=== PATIENT | male | born 1940 | race Caucasian/White ===

== ENCOUNTER → 2018-06-10 11:49 | Outpatient (CLI) | payer MEDICARE, SELFPAY ==
[2018-06-10 12:19] LABS: Add Manual Diff / Slide Review NO; Basophils Percent Auto 0.9 % (0-2); Eosinophils Percent Auto 3.6 % (2-4); Hematocrit 47.7 % (41-53); Hemoglobin 16.4 g/dL (13.5-17.5); Lymphocytes Percent Auto 23.1 % (25-40); Mean Corpuscular HGB Conc 34.4 % (30-36); Mean Corpuscular Hemoglobin 34.9 PG (26-34); Mean Corpuscular Volume 101.5 fL (80-100); Monocytes Percent Auto 10.9 % (3-14); Neutrophils Absolute Auto 3500 /uL (3000-5900); Neutrophils Percent Auto 61.5 % (50-75); Platelet Count 175 X10^3/uL (150-400); Red Blood Cell Count 4.71 X10^6/uL (4.5-5.9); Red Cell Distribution Width 13.1 % (11.6-14.8); White Blood Cell Count 5.7 X10^3/uL (4.5-11.0)
[2018-06-10 12:36] LABS: Hemoglobin A1C% w Est Avg Glu 4.8 % (4.0-6.0)
[2018-06-10 13:05] LABS: Alanine Aminotransferase 37 IU/L (21-72); Albumin 4.1 g/dL (3.5-5.0); Albumin Globulin Ratio 1.2 (1.0-2.8); Alkaline Phosphatase 61 U/L (38-126); Aspartate Aminotransferase 31 IU/L (17-59); BUN Creatinine Ratio 15.7 (6-22); Bilirubin Total 1.9 mg/dL (0.2-1.3); Blood Urea Nitrogen 11 mg/dL (9-20); Calcium 9.4 mg/dL (8.4-10.2); Carbon Dioxide 31 mmol/L (22-32); Chloride 96 mmol/L (98-107); Cholesterol 130 mg/dL (140-199); Estimated Glomerular Filt Rate > 60.0 mL/min (>60); Globulin 3.3 g/dL (1.7-4.1); Glucose 97 mg/dL (80-110); HDL Cholesterol 91 mg/dL (40-60); HEMOLYSIS < 15 (0-50); LDL Cholesterol Calculated 27 mg/dL (<100); Potassium 4.6 mmol/L (3.4-5.1); Sodium 136 mmol/L (137-145); Total Protein 7.4 g/dL (6.3-8.2); Triglycerides 59 mg/dL (35-150)
== END ==
PROVIDERS: PCP Family Medicine; Visit Provider Registered Nurse
DX: N42.9 Disorder of prostate, unspecified (principal); I10 Essential (primary) hypertension; E66.01 Morbid (severe) obesity due to excess calories; Z12.5 Encounter for screening for malignant neoplasm of prostate
CPT/HCPCS: 36415; 80053; 80061; 83036; 85025; G0103

== ENCOUNTER → 2018-06-28 12:46 | Outpatient (CLI) | payer MEDICARE, SELFPAY ==
--- NOTE | 2018-06-28 12:47 | DI.US.S_ITS ---
PROCEDURE: US SCROTUM INDICATIONS: Testicular pain TECHNIQUE: Real-time scanning was performed of the scrotum and testicles, with image documentation. Color and pulse Doppler interrogation was performed of both testicles. COMPARISON: None. FINDINGS: Right: Testicle is normal in size at 3.3 x 2.3 x 3.1 cm, and homogenous in echotexture. Epididymis is normal in overall size and morphology. Small hydrocele. No varicoceles. Overlying scrotal skin is normal in thickness. Left: Testicle is normal in size at 3.9 x 2.2 x 2.3 cm, and homogeneous in echotexture. Epididymis is normal in overall size and morphology. Small hydrocele. No varicoceles. Overlying scrotal skin is normal in thickness. Doppler: Color and pulse Doppler demonstrate normal and symmetric arterial flow in both testicles. IMPRESSION: 1. Normal testicles bilaterally. 2. Small bilateral hydroceles. Dictated by: Kuldeep VILLANUEVA Interpreted: Andrea Hatch MD on 06/28/2018 at 14:19 Approved by: Andrea Hatch M.D. on 06/28/2018 at 18:04
== END ==
PROVIDERS: Family Provider Family Medicine; PCP Family Medicine; Visit Provider Registered Nurse
DX: N50.819 Testicular pain, unspecified (principal); N43.3 Hydrocele, unspecified
CPT/HCPCS: 76870

== ENCOUNTER → 2018-09-30 13:38 | Outpatient (CLI) | payer MEDICARE, SELFPAY ==
--- NOTE | 2018-09-30 13:41 | DI.RAD.S_ITS ---
PROCEDURE: XR CHEST 2V INDICATIONS: cough TECHNIQUE: 2 views of the chest were acquired. COMPARISON: [facility], CHEST 1 VIEW, 06/25/2007, 11:48. [facility], CHEST 2 VIEW, 08/09/2010, 12:57. FINDINGS: Surgical changes and devices: None. Lungs and pleura: Bilateral interstitial prominence appears unchanged. There is pleural thickening or pleural calcification. No pleural effusions or pneumothorax. Mediastinum: Mediastinal contours are normal. Heart size is slightly prominent. Bones and chest wall: No suspicious bony abnormalities. Soft tissues appear unremarkable. IMPRESSION: 1. chronic pulmonary interstitial prominence. 2. Suspect pleural thickening. 3. Mild cardiomegaly. Dictated by: Carl Hopkins M.D. on 09/30/2018 at 14:03 Approved by: Carl Hopkins M.D. on 09/30/2018 at 14:18
== END ==
PROVIDERS: PCP Student in an Organized Health Care Education/Training Program; Visit Provider Physician Assistant
DX: R05 Cough (principal); I51.7 Cardiomegaly
CPT/HCPCS: 71046

== ENCOUNTER 2018-10-04 13:46 | Inpatient (IN) | payer MEDICARE, SELFPAY ==
[2018-10-04] VITALS (9 sets, daily range): BP systolic 100–136; BP diastolic 41–68; PULSE 54–72; RESP 16–32; TEMP 36.3–37.2; O2SAT 89–99; BMI 49.8
[2018-10-04] MEDS: ALBUTEROL/IPRATROPIUM 3 ML AMPUL INH (13:59)
--- NOTE | 2018-10-04 14:03 | DI.RAD.S_ITS ---
PROCEDURE: XR CHEST 1V INDICATIONS: cough TECHNIQUE: One view of the chest was acquired. COMPARISON: [facility], CR, XR CHEST 2V, 09/30/2018, 13:45. FINDINGS: Surgical changes and devices: None. Lungs and pleura: Patchy ill-defined bibasilar opacities are present. These appear increased since the prior study. Lung volumes are decreased. No definite focal consolidation. No pleural effusions or pneumothorax. Mediastinum: Mediastinal contours appear normal. Heart size is enlarged. Bones and chest wall: No suspicious bony lesions. Overlying soft tissues appear unremarkable. IMPRESSION: Cardiomegaly. Low lung volumes and bibasilar patchy ill-defined opacities possibly developing pulmonary edema versus atelectasis although cannot exclude superimposed infection therefore please correlate clinically. Dictated by: Chet Gresham M.D. on 10/04/2018 at 14:33 Approved by: Chet Gresham M.D. on 10/04/2018 at 14:35
--- NOTE | 2018-10-04 14:14 | ED.SOB ---
HPI - SOB/Dyspnea <DENISE Kerr - Last Filed: 10/04/18 21:57> General Chief Complaint: Shortness of Breath/Dyspnea Stated Complaint: SOB, cough Time Seen by Provider: 10/04/18 13:50 Source: patient Mode of arrival: ambulatory Limitations: no limitations History of Present Illness 77-year-old male with history of hypertension and is a former smoker here for complaint of cough over the past 6-8 weeks. He also reports having shortness of breath. Reports increased shortness of breath over the past few days. He denies any fevers. No chest pain. He states that he noticed increased shortness of breath while walking from his vehicle to his mailbox. He denies any productive cough. He has been seen for this in the walk-in clinic a few times over the past several weeks. He was prescribed doxycycline last visit he reports that this has not helped his symptoms. Positive p.o. intake. No nausea vomiting. No other concerns or complaints at this timeframe. MD Complaint: shortness of breath and cough Related Data Home Medications Medication Instructions Recorded Confirmed meloxicam 15 mg tablet 15 mg PO DAILY 06/10/18 10/04/18 methylsulfonylmethane 1 dose PO DAILY 06/10/18 10/04/18 omega-3 fatty acids 1 dose PO DAILY 06/10/18 10/04/18 Disabled Parking Permit 1 ea MISCELLANEOUS DIRECTED 10/04/18 10/04/18 amlodipine 10 mg PO DAILY 10/04/18 10/04/18 atenolol 50 mg PO DAILY 10/04/18 10/04/18 atorvastatin [Lipitor] 10 mg PO BEDTIME 10/04/18 10/04/18 doxycycline hyclate 100 mg PO [id number] 10/04/18 10/04/18 losartan [Cozaar] 50 mg PO DAILY 10/04/18 10/04/18 Previous Rx's Medication Instructions Recorded cephalexin 500 mg capsule 500 mg PO DAILY #40 cap 08/26/18 benzonatate 100 mg capsule 100 mg PO BEDTIME #20 cap 09/30/18 Allergies Allergy/AdvReac Type Severity Reaction Status Date / Time No Known Drug Allergies Allergy Verified 10/04/18 14:00 Review of Systems <DENISE Kerr - Last Filed: 10/04/18 21:57> Constitutional Denies chills, Denies fever(s), Denies lethargy and Denies weakness Eyes Denies change in vision, Denies eye discharge, Denies irritation and Denies loss of vision ENT Ears, Nose, Mouth, and Throat: Denies change in voice, Denies neck pain, Denies sore throat and Denies throat swelling Cardiovascular Denies chest pain, Denies irregular heart rhythm, Denies lightheadedness, Denies palpitations, Reports dyspnea and Denies orthopnea Respiratory Reports dyspnea and Denies wheezing Gastrointestinal Gastrointestinal: Denies abdominal pain, Denies change in bowel habits, Denies diarrhea, Denies nausea and Denies vomiting Genitourinary Denies hematuria, Denies flank pain, Denies urinary incontinence and Denies urinary urgency Musculoskeletal Denies neck pain Integumentary/Breasts Denies pruritus, Denies erythema, Denies rash and Denies wounds Neurologic Denies confusion, Denies loss of vision and Denies weakness Psychiatric Denies anxiety, Denies confusion, Denies depression, Denies homicidal ideation and Denies suicidal ideation Endocrine Denies palpitations Hematologic/Lymphatic Denies easy bruising Allergic/Immunologic Denies urticaria, Denies throat swelling and Denies wheezing PFSH <DENISE Kerr - Last Filed: 10/04/18 21:57> Medical History Alcohol abuse (Acute) Former smoker, stopped smoking in distant past (Acute) 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) Excessive drinking of alcohol (Chronic) Hayfever (Chronic) Morbid obesity (Chronic) Sleep apnea (Chronic) Chicken pox (Resolved ~1947) Measles (Resolved ~1947) Mumps (Resolved ~1948) Osteomyelitis (Resolved) Surgical History History of right knee joint replacement (Resolved) Family History Father CAD (coronary artery disease) [place] (myocardial infarction) Mother CAD (coronary artery disease) Severe hypertension Social History household members: children Smoking Status: Former smoker alcohol intake: current Family History Father CAD (coronary artery disease) [place] (myocardial infarction) Mother CAD (coronary artery disease) Severe hypertension Social History household members: children Smoking Status: Former smoker alcohol intake: current Exam <DENISE Kerr - Last Filed: 10/04/18 21:57> Initial Vital Signs Initial Vital Signs: Vital Signs Temperature 98.9 F 10/04/18 13:47 Pulse Rate 72 10/04/18 13:47 Respiratory Rate 32 H 10/04/18 13:47 Blood Pressure 119/48 L 10/04/18 13:47 Pulse Oximetry 89 L 10/04/18 13:47 Const General: cooperative and well developed Nutritional Appearance: well nourished Orientation: alert, awake, oriented x3 and not confused HENVA Mouth: oral mucosae normal and moist mucous membranes Eyes Conjunctivae: conjunctivae normal Sclera: sclerae normal Pupils: PERRL EOM: EOM intact bilaterally Cardio Rate: regular rate Rhythm: regular rhythm Heart Sounds: no click, no gallops, no murmurs and no rubs Pulses: normal peripheral pulses Skin General: no rashes or lesions noted, No jaundice and No petechiae Neuro General: alert, oriented x3, gait normal and no focal motor deficits Speech: speech normal <Bright Barclay DO - Last Filed: 10/07/18 07:06> Initial Vital Signs Initial Vital Signs: Vital Signs Temperature 98.9 F 10/04/18 13:47 Pulse Rate 72 10/04/18 13:47 Respiratory Rate 32 H 10/04/18 13:47 Blood Pressure 119/48 L 10/04/18 13:47 Pulse Oximetry 89 L 10/04/18 13:47 Course <DENISE Kerr - Last Filed: 10/04/18 21:57> Orders Ordered: ED Orders 10/07/18 05:25 CMP [Comprehensive Metabolic Panel] Routine Complete Blood Count AUTO DIFF DAILY Magnesium Routine Acetaminophen (Tylenol) 650 mg PO Q6H PRN PRN Reason: As Needed for Fever/Mild Pain Albuterol (Ventolin) 2.5 mg INH [id number] PRN PRN Reason: Shortness Of Breath Albuterol/Ipratropium (Duoneb) 3 ml INH RTBID [facility] Last Admin: 10/06/18 19:34 Dose: 3 ml Atenolol (Tenormin) 50 mg PO DAILY [facility] Last Admin: 10/06/18 08:17 Dose: 50 mg Admin: 10/05/18 09:41 Dose: 50 mg Atorvastatin Calcium (Lipitor) 10 mg PO BEDTIME [facility] Last Admin: 10/06/18 22:05 Dose: 10 mg Admin: 10/05/18 20:36 Dose: 10 mg Cephalexin HCl (Keflex) 500 mg PO DAILY [facility] Last Admin: 10/06/18 08:17 Dose: 500 mg Admin: 10/05/18 09:40 Dose: 500 mg Docusate Sodium (Colace) 100 mg PO BID PRN PRN Reason: Constipation Last Admin: 10/05/18 09:41 Dose: 100 mg Enoxaparin Sodium (Lovenox) 40 mg SUBCUT DAILY [facility] Last Admin: 10/06/18 08:17 Dose: 40 mg Admin: 10/05/18 09:41 Dose: 40 mg Folic Acid (Folic Acid) 1 mg PO DAILY [facility] Last Admin: 10/06/18 08:17 Dose: 1 mg Admin: 10/05/18 09:41 Dose: 1 mg Furosemide (Lasix) 60 mg PO DAILY [facility] Sodium Chloride (Normal Saline 0.9%) 250 mls @ 21 mls/hr IV Q24H PRN PRN Reason: Flush Last Admin: 10/05/18 01:31 Dose: 21 mls/hr Loratadine (Claritin) 10 mg PO BEDTIME [facility] Last Admin: 10/06/18 22:06 Dose: 10 mg Admin: 10/05/18 20:37 Dose: 10 mg Losartan Potassium (Cozaar) 50 mg PO DAILY [facility] Last Admin: 10/06/18 08:16 Dose: 50 mg Admin: 10/05/18 09:41 Dose: 50 mg Morphine Sulfate (Morphine) 4 mg IV Q4H PRN PRN Reason: Pain, Severe (7-10) Morphine Sulfate (Morphine) 2 mg IV Q4H PRN PRN Reason: Pain, Moderate (4-6) Multivitamins (Tab-A-Isidro) 1 tab PO DAILY [facility] Last Admin: 10/06/18 08:17 Dose: 1 tab Admin: 10/05/18 09:41 Dose: 1 tab Naloxone HCl (Narcan) 0.2 mg IV Q2MIN PRN PRN Reason: Opiate Reversal Ondansetron HCl (Zofran) 4 mg IV Q8H PRN PRN Reason: Nausea And Vomiting Pantoprazole Sodium (Protonix) 20 mg PO 0600 [facility] Last Admin: 10/07/18 05:33 Dose: 20 mg Admin: 10/06/18 08:11 Dose: 20 mg Admin: 10/05/18 05:49 Dose: 20 mg Pseudoephedrine HCl (Pseudoephedrine Hcl) 30 mg PO Q6HR PRN PRN Reason: Congestion Last Admin: 10/05/18 20:40 Dose: 30 mg Sodium Chloride (Normal Saline 0.9% Flush) 10 ml IV PRN PRN PRN Reason: Flush Last Admin: 10/05/18 01:31 Dose: 10 ml Sodium Chloride (Normal Saline 0.9% Flush) 10 ml IV BID [facility] Last Admin: 10/06/18 22:06 Dose: 10 ml Admin: 10/06/18 08:18 Dose: 10 ml Admin: 10/05/18 20:37 Dose: 10 ml Admin: 10/05/18 09:43 Dose: 10 ml Thiamine HCl (Vitamin B-1) 100 mg PO DAILY [facility] Stop: 10/08/18 09:01 Last Admin: 10/06/18 08:17 Dose: 100 mg Admin: 10/05/18 09:41 Dose: 100 mg Discontinued Medications Albuterol/Ipratropium (Duoneb) 3 ml INH NOW ONE Stop: 10/04/18 13:57 Last Admin: 10/04/18 13:59 Dose: 3 ml Furosemide (Lasix) 40 mg IV NOW ONE Stop: 10/04/18 17:02 Last Admin: 10/04/18 17:26 Dose: 40 mg Furosemide (Lasix) 20 mg IV BID [facility] Last Admin: 10/05/18 02:07 Dose: Not Given Furosemide (Lasix) 20 mg IV BID [facility] Last Admin: 10/06/18 22:05 Dose: 20 mg Admin: 10/06/18 08:18 Dose: 20 mg Admin: 10/05/18 20:36 Dose: 20 mg Admin: 10/05/18 09:43 Dose: 20 mg Admin: 10/05/18 01:31 Dose: 20 mg Meloxicam (Mobic) 15 mg PO DAILY [facility] Vital Signs - 8 hr 10/06/18 23:20 10/07/18 04:15 Temperature 97.5 F L 97.2 F L Pulse Rate 70 102 H Respiratory Rate 20 24 Blood Pressure 116/73 152/72 H Pulse Oximetry 92 96 <Bright Barclay, DO - Last Filed: 10/07/18 07:06> Orders Ordered: ED Orders 10/07/18 05:25 CMP [Comprehensive Metabolic Panel] Routine Complete Blood Count AUTO DIFF DAILY Magnesium Routine Acetaminophen (Tylenol) 650 mg PO Q6H PRN PRN Reason: As Needed for Fever/Mild Pain Albuterol (Ventolin) 2.5 mg INH [id number] PRN PRN Reason: Shortness Of Breath Albuterol/Ipratropium (Duoneb) 3 ml INH RTBID [facility] Last Admin: 10/06/18 19:34 Dose: 3 ml Atenolol (Tenormin) 50 mg PO DAILY [facility] Last Admin: 10/06/18 08:17 Dose: 50 mg Admin: 10/05/18 09:41 Dose: 50 mg Atorvastatin Calcium (Lipitor) 10 mg PO BEDTIME [facility] Last Admin: 10/06/18 22:05 Dose: 10 mg Admin: 10/05/18 20:36 Dose: 10 mg Cephalexin HCl (Keflex) 500 mg PO DAILY [facility] Last Admin: 10/06/18 08:17 Dose: 500 mg Admin: 10/05/18 09:40 Dose: 500 mg Docusate Sodium (Colace) 100 mg PO BID PRN PRN Reason: Constipation Last Admin: 10/05/18 09:41 Dose: 100 mg Enoxaparin Sodium (Lovenox) 40 mg SUBCUT DAILY [facility] Last Admin: 10/06/18 08:17 Dose: 40 mg Admin: 10/05/18 09:41 Dose: 40 mg Folic Acid (Folic Acid) 1 mg PO DAILY [facility] Last Admin: 10/06/18 08:17 Dose: 1 mg Admin: 10/05/18 09:41 Dose: 1 mg Furosemide (Lasix) 60 mg PO DAILY [facility] Sodium Chloride (Normal Saline 0.9%) 250 mls @ 21 mls/hr IV Q24H PRN PRN Reason: Flush Last Admin: 10/05/18 01:31 Dose: 21 mls/hr Loratadine (Claritin) 10 mg PO BEDTIME [facility] Last Admin: 10/06/18 22:06 Dose: 10 mg Admin: 10/05/18 20:37 Dose: 10 mg Losartan Potassium (Cozaar) 50 mg PO DAILY [facility] Last Admin: 10/06/18 08:16 Dose: 50 mg Admin: 10/05/18 09:41 Dose: 50 mg Morphine Sulfate (Morphine) 4 mg IV Q4H PRN PRN Reason: Pain, Severe (7-10) Morphine Sulfate (Morphine) 2 mg IV Q4H PRN PRN Reason: Pain, Moderate (4-6) Multivitamins (Tab-A-Isidro) 1 tab PO DAILY [facility] Last Admin: 10/06/18 08:17 Dose: 1 tab Admin: 10/05/18 09:41 Dose: 1 tab Naloxone HCl (Narcan) 0.2 mg IV Q2MIN PRN PRN Reason: Opiate Reversal Ondansetron HCl (Zofran) 4 mg IV Q8H PRN PRN Reason: Nausea And Vomiting Pantoprazole Sodium (Protonix) 20 mg PO 0600 [facility] Last Admin: 10/07/18 05:33 Dose: 20 mg Admin: 10/06/18 08:11 Dose: 20 mg Admin: 10/05/18 05:49 Dose: 20 mg Pseudoephedrine HCl (Pseudoephedrine Hcl) 30 mg PO Q6HR PRN PRN Reason: Congestion Last Admin: 10/05/18 20:40 Dose: 30 mg Sodium Chloride (Normal Saline 0.9% Flush) 10 ml IV PRN PRN PRN Reason: Flush Last Admin: 10/05/18 01:31 Dose: 10 ml Sodium Chloride (Normal Saline 0.9% Flush) 10 ml IV BID [facility] Last Admin: 10/06/18 22:06 Dose: 10 ml Admin: 10/06/18 08:18 Dose: 10 ml Admin: 10/05/18 20:37 Dose: 10 ml Admin: 10/05/18 09:43 Dose: 10 ml Thiamine HCl (Vitamin B-1) 100 mg PO DAILY [facility] Stop: 10/08/18 09:01 Last Admin: 10/06/18 08:17 Dose: 100 mg Admin: 10/05/18 09:41 Dose: 100 mg Discontinued Medications Albuterol/Ipratropium (Duoneb) 3 ml INH NOW ONE Stop: 10/04/18 13:57 Last Admin: 10/04/18 13:59 Dose: 3 ml Furosemide (Lasix) 40 mg IV NOW ONE Stop: 10/04/18 17:02 Last Admin: 10/04/18 17:26 Dose: 40 mg Furosemide (Lasix) 20 mg IV BID [facility] Last Admin: 10/05/18 02:07 Dose: Not Given Furosemide (Lasix) 20 mg IV BID [facility] Last Admin: 10/06/18 22:05 Dose: 20 mg Admin: 10/06/18 08:18 Dose: 20 mg Admin: 10/05/18 20:36 Dose: 20 mg Admin: 10/05/18 09:43 Dose: 20 mg Admin: 10/05/18 01:31 Dose: 20 mg Meloxicam (Mobic) 15 mg PO DAILY [facility] Vital Signs - 8 hr 10/06/18 23:20 10/07/18 04:15 Temperature 97.5 F L 97.2 F L Pulse Rate 70 102 H Respiratory Rate 20 24 Blood Pressure 116/73 152/72 H Pulse Oximetry 92 96 MDM - SOB/Dyspnea <DENISE Kerr - Last Filed: 10/04/18 21:57> Lab Data Result diagrams: 10/07/18 05:25 10/07/18 05:25 Lab Results 10/04/18 10/04/18 10/04/18 Range/Units 14:10 14:10 14:10 WBC 6.5 (4.5-11.0) X10^3/uL RBC 4.33 L (4.5-5.9) X10^6/uL Hgb 15.1 (13.5-17.5) g/dL Hct 41.9 (41-53) % MCV 96.8 (80-100) fL MCH 34.9 H (26-34) PG MCHC 36.0 (30-36) % RDW 13.2 (11.6-14.8) % Plt Count 180 (150-400) X10^3/uL Neut % (Auto) 70.6 (50-75) % Lymph % (Auto) 16.7 L (25-40) % Day % (Auto) 9.4 (3-14) % Eos % (Auto) 2.3 (2-4) % Baso % (Auto) 1.0 (0-2) % Neut # (Auto) 4600 (3207-6138) /uL Lymph # (Auto) 1100 (7595-8386) /uL Day # (Auto) 600 (0-900) /uL Eos # (Auto) 200 (0-450) /uL Baso # (Auto) 100 (0-100) /uL PT 12.3 (10.1-12.7) SECONDS INR 1.1 (0.9-1.3) Sodium 121 L (137-145) mmol/L Potassium 4.3 (3.4-5.1) mmol/L Chloride 84 L (98-107) mmol/L Carbon Dioxide 26 (22-32) mmol/L BUN 11 (9-20) mg/dL Creatinine 0.50 L (0.66-1.25) mg/dL Estimated GFR > 60.0 (>60) mL/min BUN/Creatinine Ratio 22.0 (6-22) Glucose 101 (80-110) mg/dL Calcium 9.1 (8.4-10.2) mg/dL Magnesium (1.6-2.3) mg/dL Total Bilirubin 2.2 H (0.2-1.3) mg/dL AST 35 (17-59) IU/L ALT 30 (21-72) IU/L Alkaline Phosphatase 66 (38-126) U/L Total Creatine Kinase 82 (55-170) U/L CK-MB (CK-2) TNP CK-MB (CK-2) Rel Index TNP Troponin I < 0.012 (0.01-0.034) ng/mL B-Natriuretic Peptide (<100) Total Protein 7.9 (6.3-8.2) g/dL Albumin 4.4 (3.5-5.0) g/dL Globulin 3.5 (1.7-4.1) g/dL Albumin/Globulin Ratio 1.3 (1.0-2.8) Triglycerides (35-150) mg/dL Cholesterol (140-199) mg/dL LDL Cholesterol, Calc (<100) mg/dL HDL Cholesterol (40-60) mg/dL Lipase 81 (23-300) U/L Procalcitonin (<0.5) ng/mL Chlamy pneumoniae PCR (Not Detect) Adenovirus (PCR) (Not Detect) B.parapertussis DNA PCR (Not Detect) Coronavirus OC43 (PCR) (Not Detect) Coronavirus HKU1 (PCR) (Not Detect) Coronavirus 229E (PCR) (Not Detect) Coronavirus NL63 (PCR) (Not Detect) Human Metapneumovir PCR (Not Detect) Influenza Type A (PCR) (Not Detect) Influenza Type B (PCR) (Not Detect) M. pneumoniae (PCR) (Not Detect) Parainfluenza 1 (PCR) (Not Detect) Parainfluenza 2 (PCR) (Not Detect) Parainfluenza 3 (PCR) (Not Detect) Parainfluenza 4 (PCR) (Not Detect) RSV (PCR) (Not Detect) Entero/Rhino (PCR) (Not Detect) 10/04/18 10/05/18 10/05/18 Range/Units 14:10 05:27 05:27 WBC 6.0 (4.5-11.0) X10^3/uL RBC 4.20 L (4.5-5.9) X10^6/uL Hgb 14.5 (13.5-17.5) g/dL Hct 41.4 (41-53) % MCV 98.5 (80-100) fL MCH 34.5 H (26-34) PG MCHC 35.0 (30-36) % RDW 13.3 (11.6-14.8) % Plt Count 164 (150-400) X10^3/uL Neut % (Auto) 67.5 (50-75) % Lymph % (Auto) 19.4 L (25-40) % Day % (Auto) 10.1 (3-14) % Eos % (Auto) 2.3 (2-4) % Baso % (Auto) 0.7 (0-2) % Neut # (Auto) 4000 (0102-2947) /uL Lymph # (Auto) 1200 (8197-2379) /uL Day # (Auto) 600 (0-900) /uL Eos # (Auto) 100 (0-450) /uL Baso # (Auto) 0 (0-100) /uL PT (10.1-12.7) SECONDS INR (0.9-1.3) Sodium 126 L (137-145) mmol/L Potassium 3.9 (3.4-5.1) mmol/L Chloride 87 L (98-107) mmol/L Carbon Dioxide 30 (22-32) mmol/L BUN 12 (9-20) mg/dL Creatinine 0.60 L (0.66-1.25) mg/dL Estimated GFR > 60.0 (>60) mL/min BUN/Creatinine Ratio 20.0 (6-22) Glucose 100 (80-110) mg/dL Calcium 9.0 (8.4-10.2) mg/dL Magnesium (1.6-2.3) mg/dL Total Bilirubin (0.2-1.3) mg/dL AST (17-59) IU/L ALT (21-72) IU/L Alkaline Phosphatase (38-126) U/L Total Creatine Kinase (55-170) U/L CK-MB (CK-2) CK-MB (CK-2) Rel Index Troponin I (0.01-0.034) ng/mL B-Natriuretic Peptide 155 H (<100) Total Protein (6.3-8.2) g/dL Albumin (3.5-5.0) g/dL Globulin (1.7-4.1) g/dL Albumin/Globulin Ratio (1.0-2.8) Triglycerides (35-150) mg/dL Cholesterol (140-199) mg/dL LDL Cholesterol, Calc (<100) mg/dL HDL Cholesterol (40-60) mg/dL Lipase (23-300) U/L Procalcitonin (<0.5) ng/mL Chlamy pneumoniae PCR (Not Detect) Adenovirus (PCR) (Not Detect) B.parapertussis DNA PCR (Not Detect) Coronavirus OC43 (PCR) (Not Detect) Coronavirus HKU1 (PCR) (Not Detect) Coronavirus 229E (PCR) (Not Detect) Coronavirus NL63 (PCR) (Not Detect) Human Metapneumovir PCR (Not Detect) Influenza Type A (PCR) (Not Detect) Influenza Type B (PCR) (Not Detect) M. pneumoniae (PCR) (Not Detect) Parainfluenza 1 (PCR) (Not Detect) Parainfluenza 2 (PCR) (Not Detect) Parainfluenza 3 (PCR) (Not Detect) Parainfluenza 4 (PCR) (Not Detect) RSV (PCR) (Not Detect) Entero/Rhino (PCR) (Not Detect) 10/05/18 10/05/18 10/05/18 Range/Units 05:27 05:27 05:27 WBC (4.5-11.0) X10^3/uL RBC (4.5-5.9) X10^6/uL Hgb (13.5-17.5) g/dL Hct (41-53) % MCV (80-100) fL MCH (26-34) PG MCHC (30-36) % RDW (11.6-14.8) % Plt Count (150-400) X10^3/uL Neut % (Auto) (50-75) % Lymph % (Auto) (25-40) % Day % (Auto) (3-14) % Eos % (Auto) (2-4) % Baso % (Auto) (0-2) % Neut # (Auto) (0390-4649) /uL Lymph # (Auto) (7946-3133) /uL Day # (Auto) (0-900) /uL Eos # (Auto) (0-450) /uL Baso # (Auto) (0-100) /uL PT (10.1-12.7) SECONDS INR (0.9-1.3) Sodium (137-145) mmol/L Potassium (3.4-5.1) mmol/L Chloride (98-107) mmol/L Carbon Dioxide (22-32) mmol/L BUN (9-20) mg/dL Creatinine (0.66-1.25) mg/dL Estimated GFR (>60) mL/min BUN/Creatinine Ratio (6-22) Glucose (80-110) mg/dL Calcium (8.4-10.2) mg/dL Magnesium 1.6 (1.6-2.3) mg/dL Total Bilirubin (0.2-1.3) mg/dL AST (17-59) IU/L ALT (21-72) IU/L Alkaline Phosphatase (38-126) U/L Total Creatine Kinase (55-170) U/L CK-MB (CK-2) CK-MB (CK-2) Rel Index Troponin I < 0.012 (0.01-0.034) ng/mL B-Natriuretic Peptide (<100) Total Protein (6.3-8.2) g/dL Albumin (3.5-5.0) g/dL Globulin (1.7-4.1) g/dL Albumin/Globulin Ratio (1.0-2.8) Triglycerides 45 (35-150) mg/dL Cholesterol 124 L (140-199) mg/dL LDL Cholesterol, Calc 30 (<100) mg/dL HDL Cholesterol 85 H (40-60) mg/dL Lipase (23-300) U/L Procalcitonin 2.60 H (<0.5) ng/mL Chlamy pneumoniae PCR (Not Detect) Adenovirus (PCR) (Not Detect) B.parapertussis DNA PCR (Not Detect) Coronavirus OC43 (PCR) (Not Detect) Coronavirus HKU1 (PCR) (Not Detect) Coronavirus 229E (PCR) (Not Detect) Coronavirus NL63 (PCR) (Not Detect) Human Metapneumovir PCR (Not Detect) Influenza Type A (PCR) (Not Detect) Influenza Type B (PCR) (Not Detect) M. pneumoniae (PCR) (Not Detect) Parainfluenza 1 (PCR) (Not Detect) Parainfluenza 2 (PCR) (Not Detect) Parainfluenza 3 (PCR) (Not Detect) Parainfluenza 4 (PCR) (Not Detect) RSV (PCR) (Not Detect) Entero/Rhino (PCR) (Not Detect) 10/05/18 10/06/18 10/06/18 Range/Units 06:48 05:07 05:07 WBC 6.8 (4.5-11.0) X10^3/uL RBC 4.22 L (4.5-5.9) X10^6/uL Hgb 14.6 (13.5-17.5) g/dL Hct 42.4 (41-53) % MCV 100.4 H (80-100) fL MCH 34.6 H (26-34) PG MCHC 34.5 (30-36) % RDW 13.5 (11.6-14.8) % Plt Count 154 (150-400) X10^3/uL Neut % (Auto) 71.6 (50-75) % Lymph % (Auto) 14.0 L (25-40) % Day % (Auto) 10.9 (3-14) % Eos % (Auto) 2.9 (2-4) % Baso % (Auto) 0.6 (0-2) % Neut # (Auto) 4800 (6674-3958) /uL Lymph # (Auto) 900 L (2223-5208) /uL Day # (Auto) 700 (0-900) /uL Eos # (Auto) 200 (0-450) /uL Baso # (Auto) 0 (0-100) /uL PT (10.1-12.7) SECONDS INR (0.9-1.3) Sodium 128 L (137-145) mmol/L Potassium 3.8 (3.4-5.1) mmol/L Chloride 88 L (98-107) mmol/L Carbon Dioxide 32 (22-32) mmol/L BUN 14 (9-20) mg/dL Creatinine 0.70 (0.66-1.25) mg/dL Estimated GFR > 60.0 (>60) mL/min BUN/Creatinine Ratio 20.0 (6-22) Glucose 108 (80-110) mg/dL Calcium 9.1 (8.4-10.2) mg/dL Magnesium (1.6-2.3) mg/dL Total Bilirubin (0.2-1.3) mg/dL AST (17-59) IU/L ALT (21-72) IU/L Alkaline Phosphatase (38-126) U/L Total Creatine Kinase (55-170) U/L CK-MB (CK-2) CK-MB (CK-2) Rel Index Troponin I (0.01-0.034) ng/mL B-Natriuretic Peptide (<100) Total Protein (6.3-8.2) g/dL Albumin (3.5-5.0) g/dL Globulin (1.7-4.1) g/dL Albumin/Globulin Ratio (1.0-2.8) Triglycerides (35-150) mg/dL Cholesterol (140-199) mg/dL LDL Cholesterol, Calc (<100) mg/dL HDL Cholesterol (40-60) mg/dL Lipase (23-300) U/L Procalcitonin (<0.5) ng/mL Chlamy pneumoniae PCR Not detected (Not Detect) Adenovirus (PCR) Not detected (Not Detect) B.parapertussis DNA PCR Not detected (Not Detect) Coronavirus OC43 (PCR) Not detected (Not Detect) Coronavirus HKU1 (PCR) Not detected (Not Detect) Coronavirus 229E (PCR) Not detected (Not Detect) Coronavirus NL63 (PCR) Not detected (Not Detect) Human Metapneumovir PCR Not detected (Not Detect) Influenza Type A (PCR) Not detected (Not Detect) Influenza Type B (PCR) Not detected (Not Detect) M. pneumoniae (PCR) Not detected (Not Detect) Parainfluenza 1 (PCR) Not detected (Not Detect) Parainfluenza 2 (PCR) Not detected (Not Detect) Parainfluenza 3 (PCR) Not detected (Not Detect) Parainfluenza 4 (PCR) Not detected (Not Detect) RSV (PCR) Not detected (Not Detect) Entero/Rhino (PCR) Not detected (Not Detect) 10/07/18 10/07/18 Range/Units 05:25 05:25 WBC 5.5 (4.5-11.0) X10^3/uL RBC 4.14 L (4.5-5.9) X10^6/uL Hgb 14.2 (13.5-17.5) g/dL Hct 40.8 L (41-53) % MCV 98.6 (80-100) fL MCH 34.4 H (26-34) PG MCHC 34.9 (30-36) % RDW 13.4 (11.6-14.8) % Plt Count 156 (150-400) X10^3/uL Neut % (Auto) 63.9 (50-75) % Lymph % (Auto) 19.8 L (25-40) % Day % (Auto) 11.5 (3-14) % Eos % (Auto) 3.9 (2-4) % Baso % (Auto) 0.9 (0-2) % Neut # (Auto) 3500 (3233-4566) /uL Lymph # (Auto) 1100 (6892-9242) /uL Day # (Auto) 600 (0-900) /uL Eos # (Auto) 200 (0-450) /uL Baso # (Auto) 0 (0-100) /uL PT (10.1-12.7) SECONDS INR (0.9-1.3) Sodium 129 L (137-145) mmol/L Potassium 3.6 (3.4-5.1) mmol/L Chloride 88 L (98-107) mmol/L Carbon Dioxide 32 (22-32) mmol/L BUN 18 (9-20) mg/dL Creatinine 0.70 (0.66-1.25) mg/dL Estimated GFR > 60.0 (>60) mL/min BUN/Creatinine Ratio 25.7 H (6-22) Glucose 104 (80-110) mg/dL Calcium 9.0 (8.4-10.2) mg/dL Magnesium 1.7 (1.6-2.3) mg/dL Total Bilirubin 1.4 H (0.2-1.3) mg/dL AST 32 (17-59) IU/L ALT 33 (21-72) IU/L Alkaline Phosphatase 61 (38-126) U/L Total Creatine Kinase (55-170) U/L CK-MB (CK-2) CK-MB (CK-2) Rel Index Troponin I (0.01-0.034) ng/mL B-Natriuretic Peptide (<100) Total Protein 7.2 (6.3-8.2) g/dL Albumin 4.0 (3.5-5.0) g/dL Globulin 3.2 (1.7-4.1) g/dL Albumin/Globulin Ratio 1.3 (1.0-2.8) Triglycerides (35-150) mg/dL Cholesterol (140-199) mg/dL LDL Cholesterol, Calc (<100) mg/dL HDL Cholesterol (40-60) mg/dL Lipase (23-300) U/L Procalcitonin (<0.5) ng/mL Chlamy pneumoniae PCR (Not Detect) Adenovirus (PCR) (Not Detect) B.parapertussis DNA PCR (Not Detect) Coronavirus OC43 (PCR) (Not Detect) Coronavirus HKU1 (PCR) (Not Detect) Coronavirus 229E (PCR) (Not Detect) Coronavirus NL63 (PCR) (Not Detect) Human Metapneumovir PCR (Not Detect) Influenza Type A (PCR) (Not Detect) Influenza Type B (PCR) (Not Detect) M. pneumoniae (PCR) (Not Detect) Parainfluenza 1 (PCR) (Not Detect) Parainfluenza 2 (PCR) (Not Detect) Parainfluenza 3 (PCR) (Not Detect) Parainfluenza 4 (PCR) (Not Detect) RSV (PCR) (Not Detect) Entero/Rhino (PCR) (Not Detect) Urine Dip Bedside Urine Glucose Negative Bedside Urine Bilirubin - Negative Bedside Urine Ketone - Negative Urine Specific [place] 1.015 Bedside Urine Occult Blood - Negative Bedside Urine pH 6.0 Bedside Urine Protein - Negative Bedside Urine Urobilinogen 1+ 2mg Bedside Urine Nitrite - Negative Bedside Urine Leukocytes - Negative Esterase ECG Data Interpretation: EKG shows sinus rhythm with no ST elevation or depression. No ectopy. Ventricular rate of 67 QRS duration of 110. QTC of 443. MDM Narrative Medical decision making narrative: CBC was obtained and shows normal white count and is otherwise unremarkable. Chem panel shows sodium level of 121 and chloride of 84. CT of the chest and chest x-ray shows findings consistent with CHF. EKG shows sinus rhythm with no ST elevation or depression cardiac enzymes were obtained and were negative. Do not appreciate signs of infection at this time. Signs and symptoms presents as CHF with hyponatremia. Patient is admitted to inpatient services to correct sodium levels and diurese. <Bright Barclay DO - Last Filed: 10/07/18 07:06> Lab Data Lab Results 10/04/18 10/04/18 10/04/18 Range/Units 14:10 14:10 14:10 WBC 6.5 (4.5-11.0) X10^3/uL RBC 4.33 L (4.5-5.9) X10^6/uL Hgb 15.1 (13.5-17.5) g/dL Hct 41.9 (41-53) % MCV 96.8 (80-100) fL MCH 34.9 H (26-34) PG MCHC 36.0 (30-36) % RDW 13.2 (11.6-14.8) % Plt Count 180 (150-400) X10^3/uL Neut % (Auto) 70.6 (50-75) % Lymph % (Auto) 16.7 L (25-40) % Day % (Auto) 9.4 (3-14) % Eos % (Auto) 2.3 (2-4) % Baso % (Auto) 1.0 (0-2) % Neut # (Auto) 4600 (7223-1658) /uL Lymph # (Auto) 1100 (9886-9457) /uL Day # (Auto) 600 (0-900) /uL Eos # (Auto) 200 (0-450) /uL Baso # (Auto) 100 (0-100) /uL PT 12.3 (10.1-12.7) SECONDS INR 1.1 (0.9-1.3) Sodium 121 L (137-145) mmol/L Potassium 4.3 (3.4-5.1) mmol/L Chloride 84 L (98-107) mmol/L Carbon Dioxide 26 (22-32) mmol/L BUN 11 (9-20) mg/dL Creatinine 0.50 L (0.66-1.25) mg/dL Estimated GFR > 60.0 (>60) mL/min BUN/Creatinine Ratio 22.0 (6-22) Glucose 101 (80-110) mg/dL Calcium 9.1 (8.4-10.2) mg/dL Magnesium (1.6-2.3) mg/dL Total Bilirubin 2.2 H (0.2-1.3) mg/dL AST 35 (17-59) IU/L ALT 30 (21-72) IU/L Alkaline Phosphatase 66 (38-126) U/L Total Creatine Kinase 82 (55-170) U/L CK-MB (CK-2) TNP CK-MB (CK-2) Rel Index TNP Troponin I < 0.012 (0.01-0.034) ng/mL B-Natriuretic Peptide (<100) Total Protein 7.9 (6.3-8.2) g/dL Albumin 4.4 (3.5-5.0) g/dL Globulin 3.5 (1.7-4.1) g/dL Albumin/Globulin Ratio 1.3 (1.0-2.8) Triglycerides (35-150) mg/dL Cholesterol (140-199) mg/dL LDL Cholesterol, Calc (<100) mg/dL HDL Cholesterol (40-60) mg/dL Lipase 81 (23-300) U/L Procalcitonin (<0.5) ng/mL Chlamy pneumoniae PCR (Not Detect) Adenovirus (PCR) (Not Detect) B.parapertussis DNA PCR (Not Detect) Coronavirus OC43 (PCR) (Not Detect) Coronavirus HKU1 (PCR) (Not Detect) Coronavirus 229E (PCR) (Not Detect) Coronavirus NL63 (PCR) (Not Detect) Human Metapneumovir PCR (Not Detect) Influenza Type A (PCR) (Not Detect) Influenza Type B (PCR) (Not Detect) M. pneumoniae (PCR) (Not Detect) Parainfluenza 1 (PCR) (Not Detect) Parainfluenza 2 (PCR) (Not Detect) Parainfluenza 3 (PCR) (Not Detect) Parainfluenza 4 (PCR) (Not Detect) RSV (PCR) (Not Detect) Entero/Rhino (PCR) (Not Detect) 10/04/18 10/05/18 10/05/18 Range/Units 14:10 05:27 05:27 WBC 6.0 (4.5-11.0) X10^3/uL RBC 4.20 L (4.5-5.9) X10^6/uL Hgb 14.5 (13.5-17.5) g/dL Hct 41.4 (41-53) % MCV 98.5 (80-100) fL MCH 34.5 H (26-34) PG MCHC 35.0 (30-36) % RDW 13.3 (11.6-14.8) % Plt Count 164 (150-400) X10^3/uL Neut % (Auto) 67.5 (50-75) % Lymph % (Auto) 19.4 L (25-40) % Day % (Auto) 10.1 (3-14) % Eos % (Auto) 2.3 (2-4) % Baso % (Auto) 0.7 (0-2) % Neut # (Auto) 4000 (7133-4695) /uL Lymph # (Auto) 1200 (3837-7201) /uL Day # (Auto) 600 (0-900) /uL Eos # (Auto) 100 (0-450) /uL Baso # (Auto) 0 (0-100) /uL PT (10.1-12.7) SECONDS INR (0.9-1.3) Sodium 126 L (137-145) mmol/L Potassium 3.9 (3.4-5.1) mmol/L Chloride 87 L (98-107) mmol/L Carbon Dioxide 30 (22-32) mmol/L BUN 12 (9-20) mg/dL Creatinine 0.60 L (0.66-1.25) mg/dL Estimated GFR > 60.0 (>60) mL/min BUN/Creatinine Ratio 20.0 (6-22) Glucose 100 (80-110) mg/dL Calcium 9.0 (8.4-10.2) mg/dL Magnesium (1.6-2.3) mg/dL Total Bilirubin (0.2-1.3) mg/dL AST (17-59) IU/L ALT (21-72) IU/L Alkaline Phosphatase (38-126) U/L Total Creatine Kinase (55-170) U/L CK-MB (CK-2) CK-MB (CK-2) Rel Index Troponin I (0.01-0.034) ng/mL B-Natriuretic Peptide 155 H (<100) Total Protein (6.3-8.2) g/dL Albumin (3.5-5.0) g/dL Globulin (1.7-4.1) g/dL Albumin/Globulin Ratio (1.0-2.8) Triglycerides (35-150) mg/dL Cholesterol (140-199) mg/dL LDL Cholesterol, Calc (<100) mg/dL HDL Cholesterol (40-60) mg/dL Lipase (23-300) U/L Procalcitonin (<0.5) ng/mL Chlamy pneumoniae PCR (Not Detect) Adenovirus (PCR) (Not Detect) B.parapertussis DNA PCR (Not Detect) Coronavirus OC43 (PCR) (Not Detect) Coronavirus HKU1 (PCR) (Not Detect) Coronavirus 229E (PCR) (Not Detect) Coronavirus NL63 (PCR) (Not Detect) Human Metapneumovir PCR (Not Detect) Influenza Type A (PCR) (Not Detect) Influenza Type B (PCR) (Not Detect) M. pneumoniae (PCR) (Not Detect) Parainfluenza 1 (PCR) (Not Detect) Parainfluenza 2 (PCR) (Not Detect) Parainfluenza 3 (PCR) (Not Detect) Parainfluenza 4 (PCR) (Not Detect) RSV (PCR) (Not Detect) Entero/Rhino (PCR) (Not Detect) 10/05/18 10/05/18 10/05/18 Range/Units 05:27 05:27 05:27 WBC (4.5-11.0) X10^3/uL RBC (4.5-5.9) X10^6/uL Hgb (13.5-17.5) g/dL Hct (41-53) % MCV (80-100) fL MCH (26-34) PG MCHC (30-36) % RDW (11.6-14.8) % Plt Count (150-400) X10^3/uL Neut % (Auto) (50-75) % Lymph % (Auto) (25-40) % Day % (Auto) (3-14) % Eos % (Auto) (2-4) % Baso % (Auto) (0-2) % Neut # (Auto) (8858-4352) /uL Lymph # (Auto) (3584-6411) /uL Day # (Auto) (0-900) /uL Eos # (Auto) (0-450) /uL Baso # (Auto) (0-100) /uL PT (10.1-12.7) SECONDS INR (0.9-1.3) Sodium (137-145) mmol/L Potassium (3.4-5.1) mmol/L Chloride (98-107) mmol/L Carbon Dioxide (22-32) mmol/L BUN (9-20) mg/dL Creatinine (0.66-1.25) mg/dL Estimated GFR (>60) mL/min BUN/Creatinine Ratio (6-22) Glucose (80-110) mg/dL Calcium (8.4-10.2) mg/dL Magnesium 1.6 (1.6-2.3) mg/dL Total Bilirubin (0.2-1.3) mg/dL AST (17-59) IU/L ALT (21-72) IU/L Alkaline Phosphatase (38-126) U/L Total Creatine Kinase (55-170) U/L CK-MB (CK-2) CK-MB (CK-2) Rel Index Troponin I < 0.012 (0.01-0.034) ng/mL B-Natriuretic Peptide (<100) Total Protein (6.3-8.2) g/dL Albumin (3.5-5.0) g/dL Globulin (1.7-4.1) g/dL Albumin/Globulin Ratio (1.0-2.8) Triglycerides 45 (35-150) mg/dL Cholesterol 124 L (140-199) mg/dL LDL Cholesterol, Calc 30 (<100) mg/dL HDL Cholesterol 85 H (40-60) mg/dL Lipase (23-300) U/L Procalcitonin 2.60 H (<0.5) ng/mL Chlamy pneumoniae PCR (Not Detect) Adenovirus (PCR) (Not Detect) B.parapertussis DNA PCR (Not Detect) Coronavirus OC43 (PCR) (Not Detect) Coronavirus HKU1 (PCR) (Not Detect) Coronavirus 229E (PCR) (Not Detect) Coronavirus NL63 (PCR) (Not Detect) Human Metapneumovir PCR (Not Detect) Influenza Type A (PCR) (Not Detect) Influenza Type B (PCR) (Not Detect) M. pneumoniae (PCR) (Not Detect) Parainfluenza 1 (PCR) (Not Detect) Parainfluenza 2 (PCR) (Not Detect) Parainfluenza 3 (PCR) (Not Detect) Parainfluenza 4 (PCR) (Not Detect) RSV (PCR) (Not Detect) Entero/Rhino (PCR) (Not Detect) 10/05/18 10/06/18 10/06/18 Range/Units 06:48 05:07 05:07 WBC 6.8 (4.5-11.0) X10^3/uL RBC 4.22 L (4.5-5.9) X10^6/uL Hgb 14.6 (13.5-17.5) g/dL Hct 42.4 (41-53) % MCV 100.4 H (80-100) fL MCH 34.6 H (26-34) PG MCHC 34.5 (30-36) % RDW 13.5 (11.6-14.8) % Plt Count 154 (150-400) X10^3/uL Neut % (Auto) 71.6 (50-75) % Lymph % (Auto) 14.0 L (25-40) % Day % (Auto) 10.9 (3-14) % Eos % (Auto) 2.9 (2-4) % Baso % (Auto) 0.6 (0-2) % Neut # (Auto) 4800 (0373-7531) /uL Lymph # (Auto) 900 L (5079-9612) /uL Day # (Auto) 700 (0-900) /uL Eos # (Auto) 200 (0-450) /uL Baso # (Auto) 0 (0-100) /uL PT (10.1-12.7) SECONDS INR (0.9-1.3) Sodium 128 L (137-145) mmol/L Potassium 3.8 (3.4-5.1) mmol/L Chloride 88 L (98-107) mmol/L Carbon Dioxide 32 (22-32) mmol/L BUN 14 (9-20) mg/dL Creatinine 0.70 (0.66-1.25) mg/dL Estimated GFR > 60.0 (>60) mL/min BUN/Creatinine Ratio 20.0 (6-22) Glucose 108 (80-110) mg/dL Calcium 9.1 (8.4-10.2) mg/dL Magnesium (1.6-2.3) mg/dL Total Bilirubin (0.2-1.3) mg/dL AST (17-59) IU/L ALT (21-72) IU/L Alkaline Phosphatase (38-126) U/L Total Creatine Kinase (55-170) U/L CK-MB (CK-2) CK-MB (CK-2) Rel Index Troponin I (0.01-0.034) ng/mL B-Natriuretic Peptide (<100) Total Protein (6.3-8.2) g/dL Albumin (3.5-5.0) g/dL Globulin (1.7-4.1) g/dL Albumin/Globulin Ratio (1.0-2.8) Triglycerides (35-150) mg/dL Cholesterol (140-199) mg/dL LDL Cholesterol, Calc (<100) mg/dL HDL Cholesterol (40-60) mg/dL Lipase (23-300) U/L Procalcitonin (<0.5) ng/mL Chlamy pneumoniae PCR Not detected (Not Detect) Adenovirus (PCR) Not detected (Not Detect) B.parapertussis DNA PCR Not detected (Not Detect) Coronavirus OC43 (PCR) Not detected (Not Detect) Coronavirus HKU1 (PCR) Not detected (Not Detect) Coronavirus 229E (PCR) Not detected (Not Detect) Coronavirus NL63 (PCR) Not detected (Not Detect) Human Metapneumovir PCR Not detected (Not Detect) Influenza Type A (PCR) Not detected (Not Detect) Influenza Type B (PCR) Not detected (Not Detect) M. pneumoniae (PCR) Not detected (Not Detect) Parainfluenza 1 (PCR) Not detected (Not Detect) Parainfluenza 2 (PCR) Not detected (Not Detect) Parainfluenza 3 (PCR) Not detected (Not Detect) Parainfluenza 4 (PCR) Not detected (Not Detect) RSV (PCR) Not detected (Not Detect) Entero/Rhino (PCR) Not detected (Not Detect) 10/07/18 10/07/18 Range/Units 05:25 05:25 WBC 5.5 (4.5-11.0) X10^3/uL RBC 4.14 L (4.5-5.9) X10^6/uL Hgb 14.2 (13.5-17.5) g/dL Hct 40.8 L (41-53) % MCV 98.6 (80-100) fL MCH 34.4 H (26-34) PG MCHC 34.9 (30-36) % RDW 13.4 (11.6-14.8) % Plt Count 156 (150-400) X10^3/uL Neut % (Auto) 63.9 (50-75) % Lymph % (Auto) 19.8 L (25-40) % Day % (Auto) 11.5 (3-14) % Eos % (Auto) 3.9 (2-4) % Baso % (Auto) 0.9 (0-2) % Neut # (Auto) 3500 (7043-3868) /uL Lymph # (Auto) 1100 (1449-2353) /uL Day # (Auto) 600 (0-900) /uL Eos # (Auto) 200 (0-450) /uL Baso # (Auto) 0 (0-100) /uL PT (10.1-12.7) SECONDS INR (0.9-1.3) Sodium 129 L (137-145) mmol/L Potassium 3.6 (3.4-5.1) mmol/L Chloride 88 L (98-107) mmol/L Carbon Dioxide 32 (22-32) mmol/L BUN 18 (9-20) mg/dL Creatinine 0.70 (0.66-1.25) mg/dL Estimated GFR > 60.0 (>60) mL/min BUN/Creatinine Ratio 25.7 H (6-22) Glucose 104 (80-110) mg/dL Calcium 9.0 (8.4-10.2) mg/dL Magnesium 1.7 (1.6-2.3) mg/dL Total Bilirubin 1.4 H (0.2-1.3) mg/dL AST 32 (17-59) IU/L ALT 33 (21-72) IU/L Alkaline Phosphatase 61 (38-126) U/L Total Creatine Kinase (55-170) U/L CK-MB (CK-2) CK-MB (CK-2) Rel Index Troponin I (0.01-0.034) ng/mL B-Natriuretic Peptide (<100) Total Protein 7.2 (6.3-8.2) g/dL Albumin 4.0 (3.5-5.0) g/dL Globulin 3.2 (1.7-4.1) g/dL Albumin/Globulin Ratio 1.3 (1.0-2.8) Triglycerides (35-150) mg/dL Cholesterol (140-199) mg/dL LDL Cholesterol, Calc (<100) mg/dL HDL Cholesterol (40-60) mg/dL Lipase (23-300) U/L Procalcitonin (<0.5) ng/mL Chlamy pneumoniae PCR (Not Detect) Adenovirus (PCR) (Not Detect) B.parapertussis DNA PCR (Not Detect) Coronavirus OC43 (PCR) (Not Detect) Coronavirus HKU1 (PCR) (Not Detect) Coronavirus 229E (PCR) (Not Detect) Coronavirus NL63 (PCR) (Not Detect) Human Metapneumovir PCR (Not Detect) Influenza Type A (PCR) (Not Detect) Influenza Type B (PCR) (Not Detect) M. pneumoniae (PCR) (Not Detect) Parainfluenza 1 (PCR) (Not Detect) Parainfluenza 2 (PCR) (Not Detect) Parainfluenza 3 (PCR) (Not Detect) Parainfluenza 4 (PCR) (Not Detect) RSV (PCR) (Not Detect) Entero/Rhino (PCR) (Not Detect) Urine Dip Bedside Urine Glucose Negative Bedside Urine Bilirubin - Negative Bedside Urine Ketone - Negative Urine Specific [place] 1.015 Bedside Urine Occult Blood - Negative Bedside Urine pH 6.0 Bedside Urine Protein - Negative Bedside Urine Urobilinogen 1+ 2mg Bedside Urine Nitrite - Negative Bedside Urine Leukocytes - Negative Esterase Discharge Plan Departure Patient Disposition: Admitted As Inpatient Clinical Impression: Hyponatremia Discharge Date/Time: 10/04/18 18:07 Interventions: ED Discharge Assessment Last Done: 10/04/18 17:57 Admit Date/Time: 10/04/18 17:26 Admit Provider: Denita Blunt <Bright Barclay DO - Last Filed: 10/07/18 07:06> Cosign ED Attending David Attestation: I was available for consultation during this patient's emergency department encounter
[2018-10-04 14:26] LABS: Add Manual Diff / Slide Review NO; Basophils Absolute Auto 100 /uL (0-100); Eosinophils Absolute Auto 200 /uL (0-450); Eosinophils Percent Auto 2.3 % (2-4); Hematocrit 41.9 % (41-53); Hemoglobin 15.1 g/dL (13.5-17.5); Lymphocytes Absolute Auto 1100 /uL (1100-4500); Lymphocytes Percent Auto 16.7 % (25-40); Mean Corpuscular Hemoglobin 34.9 PG (26-34); Mean Corpuscular Volume 96.8 fL (80-100); Monocytes Absolute Auto 600 /uL (0-900); Monocytes Percent Auto 9.4 % (3-14); Neutrophils Absolute Auto 4600 /uL (1500-7000); Neutrophils Percent Auto 70.6 % (50-75); Platelet Count 180 X10^3/uL (150-400); Red Blood Cell Count 4.33 X10^6/uL (4.5-5.9); Red Cell Distribution Width 13.2 % (11.6-14.8); White Blood Cell Count 6.5 X10^3/uL (4.5-11.0)
[2018-10-04 14:34] LABS: INR 1.1 (0.9-1.3); Prothrombin Time 12.3 SECONDS (10.1-12.7)
[2018-10-04 14:43] LABS: Alanine Aminotransferase 30 IU/L (21-72); Albumin 4.4 g/dL (3.5-5.0); Albumin Globulin Ratio 1.3 (1.0-2.8); Alkaline Phosphatase 66 U/L (38-126); Aspartate Aminotransferase 35 IU/L (17-59); Bilirubin Total 2.2 mg/dL (0.2-1.3); Blood Urea Nitrogen 11 mg/dL (9-20); Calcium 9.1 mg/dL (8.4-10.2); Carbon Dioxide 26 mmol/L (22-32); Chloride 84 mmol/L (98-107); Creatine Kinase 82 U/L (55-170); Estimated Glomerular Filt Rate > 60.0 mL/min (>60); Globulin 3.5 g/dL (1.7-4.1); Glucose 101 mg/dL (80-110); HEMOLYSIS 37 (0-50); Lipase 81 U/L (23-300); Potassium 4.3 mmol/L (3.4-5.1); Sodium 121 mmol/L (137-145); Total Protein 7.9 g/dL (6.3-8.2)
[2018-10-04 14:55] LABS: Troponin I < 0.012 ng/mL (0.01-0.034)
[2018-10-04 15:21] LABS: B Type Natriuretic Peptide 155 (<100)
--- NOTE | 2018-10-04 17:01 | DI.CT.S_ITS ---
PROCEDURE: CT CHEST WO CON INDICATIONS: Cough over the last 6-8 weeks low-sodium TECHNIQUE: Noncontrast 5 mm thick sections acquired from the pulmonary apices to the posterior costophrenic angles. 7 mm thick coronal and sagittal MIP reformats were then acquired. For radiation dose reduction, the following was used: automated exposure control, adjustment of mA and/or kV according to patient size. COMPARISON: None. FINDINGS: Image quality: Excellent. Lungs and pleura: Small bilateral pleural effusion is seen. Hazy groundglass opacity are noted scattered throughout bilateral lung bryan suggestive of mild pulmonary edema. No focal infiltrate is seen. Mild dependent atelectasis in posterior aspect of bilateral lower lobes. There is no pneumothorax Central and peripheral airways are patent and normal in caliber. Mediastinum: Heart size is enlarged. No pericardial effusion. No mediastinal adenopathy by size criteria. Subcentimeter lymph nodes are seen scattered in mediastinum and measures up to 8 mm in size. Coronary artery calcifications are seen. Atherosclerotic calcifications also noted throughout aortic arch and descending thoracic aorta. Thoracic aorta and central pulmonary arteries are normal in size. Esophagus is normal in caliber. No hiatal hernia. Bones and chest wall: No suspicious bony lesions. No vertebral body compression fractures. 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 No axillary or supraclavicular adenopathy by size criteria. Left thyroid lobe is asymmetrically enlarged, no discrete thyroid nodule is seen. Abdomen: Visualized upper abdominal solid organs and bowel loops appear normal in the absence of contrast. Multiple stones are seen in dependent portion of gallbladder lumen. No gross biliary ductal dilatation is seen. IMPRESSION: 1. Small right greater than left bilateral pleural effusion with adjacent compressive atelectasis in posterior aspect of bilateral lower lobes. Mild pulmonary edema. No focal infiltrate or pneumothorax. Airway is patent. 2. No mediastinal or hilar lymphadenopathy. Cardiomegaly and coronary artery calcifications. 3. Asymmetrically enlarged left thyroid lobe which may represent nodular goiter. 4. Cholelithiasis, no biliary ductal dilatation. Dictated by: Andrea Hatch M.D. on 10/04/2018 at 17:44 Approved by: Andrea Hatch M.D. on 10/04/2018 at 17:50
[2018-10-04] MEDS: FUROSEMIDE 40 MG/4 ML VIAL IV (17:26)
--- NOTE | 2018-10-04 17:28 | ED_ITS ---
HPI - SOB/Dyspnea <DENISE Kerr - Last Filed: 10/04/18 21:57> General Chief Complaint: Shortness of Breath/Dyspnea Stated Complaint: SOB, cough Time Seen by Provider: 10/04/18 13:50 Source: patient Mode of arrival: ambulatory Limitations: no limitations History of Present Illness 77-year-old male with history of hypertension and is a former smoker here for complaint of cough over the past 6-8 weeks. He also reports having shortness of breath. Reports increased shortness of breath over the past few days. He denies any fevers. No chest pain. He states that he noticed increased shortness of breath while walking from his vehicle to his mailbox. He denies any productive cough. He has been seen for this in the walk-in clinic a few times over the past several weeks. He was prescribed doxycycline last visit he reports that this has not helped his symptoms. Positive p.o. intake. No nausea vomiting. No other concerns or complaints at this timeframe. MD Complaint: shortness of breath and cough Related Data Home Medications Medication Instructions Recorded Confirmed meloxicam 15 mg tablet 15 mg PO DAILY 06/10/18 10/04/18 methylsulfonylmethane 1 dose PO DAILY 06/10/18 10/04/18 omega-3 fatty acids 1 dose PO DAILY 06/10/18 10/04/18 Disabled Parking Permit 1 ea MISCELLANEOUS DIRECTED 10/04/18 10/04/18 amlodipine 10 mg PO DAILY 10/04/18 10/04/18 atenolol 50 mg PO DAILY 10/04/18 10/04/18 atorvastatin [Lipitor] 10 mg PO BEDTIME 10/04/18 10/04/18 doxycycline hyclate 100 mg PO [id number] 10/04/18 10/04/18 losartan [Cozaar] 50 mg PO DAILY 10/04/18 10/04/18 Previous Rx's Medication Instructions Recorded cephalexin 500 mg capsule 500 mg PO DAILY #40 cap 08/26/18 benzonatate 100 mg capsule 100 mg PO BEDTIME #20 cap 09/30/18 Allergies Allergy/AdvReac Type Severity Reaction Status Date / Time No Known Drug Allergies Allergy Verified 10/04/18 14:00 Review of Systems <DENISE Kerr - Last Filed: 10/04/18 21:57> Constitutional Denies chills, Denies fever(s), Denies lethargy and Denies weakness Eyes Denies change in vision, Denies eye discharge, Denies irritation and Denies loss of vision ENT Ears, Nose, Mouth, and Throat: Denies change in voice, Denies neck pain, Denies sore throat and Denies throat swelling Cardiovascular Denies chest pain, Denies irregular heart rhythm, Denies lightheadedness, Denies palpitations, Reports dyspnea and Denies orthopnea Respiratory Reports dyspnea and Denies wheezing Gastrointestinal Gastrointestinal: Denies abdominal pain, Denies change in bowel habits, Denies diarrhea, Denies nausea and Denies vomiting Genitourinary Denies hematuria, Denies flank pain, Denies urinary incontinence and Denies urinary urgency Musculoskeletal Denies neck pain Integumentary/Breasts Denies pruritus, Denies erythema, Denies rash and Denies wounds Neurologic Denies confusion, Denies loss of vision and Denies weakness Psychiatric Denies anxiety, Denies confusion, Denies depression, Denies homicidal ideation and Denies suicidal ideation Endocrine Denies palpitations Hematologic/Lymphatic Denies easy bruising Allergic/Immunologic Denies urticaria, Denies throat swelling and Denies wheezing PFSH <DENISE Kerr - Last Filed: 10/04/18 21:57> Medical History Alcohol abuse (Acute) Former smoker, stopped smoking in distant past (Acute) 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) Excessive drinking of alcohol (Chronic) Hayfever (Chronic) Morbid obesity (Chronic) Sleep apnea (Chronic) Chicken pox (Resolved ~1947) Measles (Resolved ~1947) Mumps (Resolved ~1948) Osteomyelitis (Resolved) Surgical History History of right knee joint replacement (Resolved) Family History Father CAD (coronary artery disease) AR (myocardial infarction) Mother CAD (coronary artery disease) Severe hypertension Social History household members: children Smoking Status: Former smoker alcohol intake: current Family History Father CAD (coronary artery disease) AR (myocardial infarction) Mother CAD (coronary artery disease) Severe hypertension Social History household members: children Smoking Status: Former smoker alcohol intake: current Exam <DENISE Kerr - Last Filed: 10/04/18 21:57> Initial Vital Signs Initial Vital Signs: Vital Signs Temperature 98.9 F 10/04/18 13:47 Pulse Rate 72 10/04/18 13:47 Respiratory Rate 32 H 10/04/18 13:47 Blood Pressure 119/48 L 10/04/18 13:47 Pulse Oximetry 89 L 10/04/18 13:47 Const General: cooperative and well developed Nutritional Appearance: well nourished Orientation: alert, awake, oriented x3 and not confused HENMS Mouth: oral mucosae normal and moist mucous membranes Eyes Conjunctivae: conjunctivae normal Sclera: sclerae normal Pupils: PERRL EOM: EOM intact bilaterally Cardio Rate: regular rate Rhythm: regular rhythm Heart Sounds: no click, no gallops, no murmurs and no rubs Pulses: normal peripheral pulses Skin General: no rashes or lesions noted, No jaundice and No petechiae Neuro General: alert, oriented x3, gait normal and no focal motor deficits Speech: speech normal <Bright Barclay DO - Last Filed: 10/07/18 07:06> Initial Vital Signs Initial Vital Signs: Vital Signs Temperature 98.9 F 10/04/18 13:47 Pulse Rate 72 10/04/18 13:47 Respiratory Rate 32 H 10/04/18 13:47 Blood Pressure 119/48 L 10/04/18 13:47 Pulse Oximetry 89 L 10/04/18 13:47 Course <DENISE Kerr - Last Filed: 10/04/18 21:57> Orders Ordered: ED Orders 10/07/18 05:25 CMP [Comprehensive Metabolic Panel] Routine Complete Blood Count AUTO DIFF DAILY Magnesium Routine Acetaminophen (Tylenol) 650 mg PO Q6H PRN PRN Reason: As Needed for Fever/Mild Pain Albuterol (Ventolin) 2.5 mg INH [id number] PRN PRN Reason: Shortness Of Breath Albuterol/Ipratropium (Duoneb) 3 ml INH RTBID [facility] Last Admin: 10/06/18 19:34 Dose: 3 ml Atenolol (Tenormin) 50 mg PO DAILY [facility] Last Admin: 10/06/18 08:17 Dose: 50 mg Admin: 10/05/18 09:41 Dose: 50 mg Atorvastatin Calcium (Lipitor) 10 mg PO BEDTIME [facility] Last Admin: 10/06/18 22:05 Dose: 10 mg Admin: 10/05/18 20:36 Dose: 10 mg Cephalexin HCl (Keflex) 500 mg PO DAILY [facility] Last Admin: 10/06/18 08:17 Dose: 500 mg Admin: 10/05/18 09:40 Dose: 500 mg Docusate Sodium (Colace) 100 mg PO BID PRN PRN Reason: Constipation Last Admin: 10/05/18 09:41 Dose: 100 mg Enoxaparin Sodium (Lovenox) 40 mg SUBCUT DAILY [facility] Last Admin: 10/06/18 08:17 Dose: 40 mg Admin: 10/05/18 09:41 Dose: 40 mg Folic Acid (Folic Acid) 1 mg PO DAILY [facility] Last Admin: 10/06/18 08:17 Dose: 1 mg Admin: 10/05/18 09:41 Dose: 1 mg Furosemide (Lasix) 60 mg PO DAILY [facility] Sodium Chloride (Normal Saline 0.9%) 250 mls @ 21 mls/hr IV Q24H PRN PRN Reason: Flush Last Admin: 10/05/18 01:31 Dose: 21 mls/hr Loratadine (Claritin) 10 mg PO BEDTIME [facility] Last Admin: 10/06/18 22:06 Dose: 10 mg Admin: 10/05/18 20:37 Dose: 10 mg Losartan Potassium (Cozaar) 50 mg PO DAILY [facility] Last Admin: 10/06/18 08:16 Dose: 50 mg Admin: 10/05/18 09:41 Dose: 50 mg Morphine Sulfate (Morphine) 4 mg IV Q4H PRN PRN Reason: Pain, Severe (7-10) Morphine Sulfate (Morphine) 2 mg IV Q4H PRN PRN Reason: Pain, Moderate (4-6) Multivitamins (Tab-A-Isidro) 1 tab PO DAILY [facility] Last Admin: 10/06/18 08:17 Dose: 1 tab Admin: 10/05/18 09:41 Dose: 1 tab Naloxone HCl (Narcan) 0.2 mg IV Q2MIN PRN PRN Reason: Opiate Reversal Ondansetron HCl (Zofran) 4 mg IV Q8H PRN PRN Reason: Nausea And Vomiting Pantoprazole Sodium (Protonix) 20 mg PO 0600 [facility] Last Admin: 10/07/18 05:33 Dose: 20 mg Admin: 10/06/18 08:11 Dose: 20 mg Admin: 10/05/18 05:49 Dose: 20 mg Pseudoephedrine HCl (Pseudoephedrine Hcl) 30 mg PO Q6HR PRN PRN Reason: Congestion Last Admin: 10/05/18 20:40 Dose: 30 mg Sodium Chloride (Normal Saline 0.9% Flush) 10 ml IV PRN PRN PRN Reason: Flush Last Admin: 10/05/18 01:31 Dose: 10 ml Sodium Chloride (Normal Saline 0.9% Flush) 10 ml IV BID [facility] Last Admin: 10/06/18 22:06 Dose: 10 ml Admin: 10/06/18 08:18 Dose: 10 ml Admin: 10/05/18 20:37 Dose: 10 ml Admin: 10/05/18 09:43 Dose: 10 ml Thiamine HCl (Vitamin B-1) 100 mg PO DAILY [facility] Stop: 10/08/18 09:01 Last Admin: 10/06/18 08:17 Dose: 100 mg Admin: 10/05/18 09:41 Dose: 100 mg Discontinued Medications Albuterol/Ipratropium (Duoneb) 3 ml INH NOW ONE Stop: 10/04/18 13:57 Last Admin: 10/04/18 13:59 Dose: 3 ml Furosemide (Lasix) 40 mg IV NOW ONE Stop: 10/04/18 17:02 Last Admin: 10/04/18 17:26 Dose: 40 mg Furosemide (Lasix) 20 mg IV BID [facility] Last Admin: 10/05/18 02:07 Dose: Not Given Furosemide (Lasix) 20 mg IV BID [facility] Last Admin: 10/06/18 22:05 Dose: 20 mg Admin: 10/06/18 08:18 Dose: 20 mg Admin: 10/05/18 20:36 Dose: 20 mg Admin: 10/05/18 09:43 Dose: 20 mg Admin: 10/05/18 01:31 Dose: 20 mg Meloxicam (Mobic) 15 mg PO DAILY [facility] Vital Signs - 8 hr 10/06/18 23:20 10/07/18 04:15 Temperature 97.5 F L 97.2 F L Pulse Rate 70 102 H Respiratory Rate 20 24 Blood Pressure 116/73 152/72 H Pulse Oximetry 92 96 <Bright Barclay, DO - Last Filed: 10/07/18 07:06> Orders Ordered: ED Orders 10/07/18 05:25 CMP [Comprehensive Metabolic Panel] Routine Complete Blood Count AUTO DIFF DAILY Magnesium Routine Acetaminophen (Tylenol) 650 mg PO Q6H PRN PRN Reason: As Needed for Fever/Mild Pain Albuterol (Ventolin) 2.5 mg INH [id number] PRN PRN Reason: Shortness Of Breath Albuterol/Ipratropium (Duoneb) 3 ml INH RTBID [facility] Last Admin: 10/06/18 19:34 Dose: 3 ml Atenolol (Tenormin) 50 mg PO DAILY [facility] Last Admin: 10/06/18 08:17 Dose: 50 mg Admin: 10/05/18 09:41 Dose: 50 mg Atorvastatin Calcium (Lipitor) 10 mg PO BEDTIME [facility] Last Admin: 10/06/18 22:05 Dose: 10 mg Admin: 10/05/18 20:36 Dose: 10 mg Cephalexin HCl (Keflex) 500 mg PO DAILY [facility] Last Admin: 10/06/18 08:17 Dose: 500 mg Admin: 10/05/18 09:40 Dose: 500 mg Docusate Sodium (Colace) 100 mg PO BID PRN PRN Reason: Constipation Last Admin: 10/05/18 09:41 Dose: 100 mg Enoxaparin Sodium (Lovenox) 40 mg SUBCUT DAILY [facility] Last Admin: 10/06/18 08:17 Dose: 40 mg Admin: 10/05/18 09:41 Dose: 40 mg Folic Acid (Folic Acid) 1 mg PO DAILY [facility] Last Admin: 10/06/18 08:17 Dose: 1 mg Admin: 10/05/18 09:41 Dose: 1 mg Furosemide (Lasix) 60 mg PO DAILY [facility] Sodium Chloride (Normal Saline 0.9%) 250 mls @ 21 mls/hr IV Q24H PRN PRN Reason: Flush Last Admin: 10/05/18 01:31 Dose: 21 mls/hr Loratadine (Claritin) 10 mg PO BEDTIME [facility] Last Admin: 10/06/18 22:06 Dose: 10 mg Admin: 10/05/18 20:37 Dose: 10 mg Losartan Potassium (Cozaar) 50 mg PO DAILY [facility] Last Admin: 10/06/18 08:16 Dose: 50 mg Admin: 10/05/18 09:41 Dose: 50 mg Morphine Sulfate (Morphine) 4 mg IV Q4H PRN PRN Reason: Pain, Severe (7-10) Morphine Sulfate (Morphine) 2 mg IV Q4H PRN PRN Reason: Pain, Moderate (4-6) Multivitamins (Tab-A-Isidro) 1 tab PO DAILY [facility] Last Admin: 10/06/18 08:17 Dose: 1 tab Admin: 10/05/18 09:41 Dose: 1 tab Naloxone HCl (Narcan) 0.2 mg IV Q2MIN PRN PRN Reason: Opiate Reversal Ondansetron HCl (Zofran) 4 mg IV Q8H PRN PRN Reason: Nausea And Vomiting Pantoprazole Sodium (Protonix) 20 mg PO 0600 [facility] Last Admin: 10/07/18 05:33 Dose: 20 mg Admin: 10/06/18 08:11 Dose: 20 mg Admin: 10/05/18 05:49 Dose: 20 mg Pseudoephedrine HCl (Pseudoephedrine Hcl) 30 mg PO Q6HR PRN PRN Reason: Congestion Last Admin: 10/05/18 20:40 Dose: 30 mg Sodium Chloride (Normal Saline 0.9% Flush) 10 ml IV PRN PRN PRN Reason: Flush Last Admin: 10/05/18 01:31 Dose: 10 ml Sodium Chloride (Normal Saline 0.9% Flush) 10 ml IV BID [facility] Last Admin: 10/06/18 22:06 Dose: 10 ml Admin: 10/06/18 08:18 Dose: 10 ml Admin: 10/05/18 20:37 Dose: 10 ml Admin: 10/05/18 09:43 Dose: 10 ml Thiamine HCl (Vitamin B-1) 100 mg PO DAILY [facility] Stop: 10/08/18 09:01 Last Admin: 10/06/18 08:17 Dose: 100 mg Admin: 10/05/18 09:41 Dose: 100 mg Discontinued Medications Albuterol/Ipratropium (Duoneb) 3 ml INH NOW ONE Stop: 10/04/18 13:57 Last Admin: 10/04/18 13:59 Dose: 3 ml Furosemide (Lasix) 40 mg IV NOW ONE Stop: 10/04/18 17:02 Last Admin: 10/04/18 17:26 Dose: 40 mg Furosemide (Lasix) 20 mg IV BID [facility] Last Admin: 10/05/18 02:07 Dose: Not Given Furosemide (Lasix) 20 mg IV BID [facility] Last Admin: 10/06/18 22:05 Dose: 20 mg Admin: 10/06/18 08:18 Dose: 20 mg Admin: 10/05/18 20:36 Dose: 20 mg Admin: 10/05/18 09:43 Dose: 20 mg Admin: 10/05/18 01:31 Dose: 20 mg Meloxicam (Mobic) 15 mg PO DAILY [facility] Vital Signs - 8 hr 10/06/18 23:20 10/07/18 04:15 Temperature 97.5 F L 97.2 F L Pulse Rate 70 102 H Respiratory Rate 20 24 Blood Pressure 116/73 152/72 H Pulse Oximetry 92 96 MDM - SOB/Dyspnea <DENISE Kerr - Last Filed: 10/04/18 21:57> Lab Data Result diagrams: 10/07/18 05:25 10/07/18 05:25 Lab Results 10/04/18 10/04/18 10/04/18 Range/Units 14:10 14:10 14:10 WBC 6.5 (4.5-11.0) X10^3/uL RBC 4.33 L (4.5-5.9) X10^6/uL Hgb 15.1 (13.5-17.5) g/dL Hct 41.9 (41-53) % MCV 96.8 (80-100) fL MCH 34.9 H (26-34) PG MCHC 36.0 (30-36) % RDW 13.2 (11.6-14.8) % Plt Count 180 (150-400) X10^3/uL Neut % (Auto) 70.6 (50-75) % Lymph % (Auto) 16.7 L (25-40) % [place] % (Auto) 9.4 (3-14) % Eos % (Auto) 2.3 (2-4) % Baso % (Auto) 1.0 (0-2) % Neut # (Auto) 4600 (4420-9644) /uL Lymph # (Auto) 1100 (8917-7015) /uL [place] # (Auto) 600 (0-900) /uL Eos # (Auto) 200 (0-450) /uL Baso # (Auto) 100 (0-100) /uL PT 12.3 (10.1-12.7) SECONDS INR 1.1 (0.9-1.3) Sodium 121 L (137-145) mmol/L Potassium 4.3 (3.4-5.1) mmol/L Chloride 84 L (98-107) mmol/L Carbon Dioxide 26 (22-32) mmol/L BUN 11 (9-20) mg/dL Creatinine 0.50 L (0.66-1.25) mg/dL Estimated GFR > 60.0 (>60) mL/min BUN/Creatinine Ratio 22.0 (6-22) Glucose 101 (80-110) mg/dL Calcium 9.1 (8.4-10.2) mg/dL Magnesium (1.6-2.3) mg/dL Total Bilirubin 2.2 H (0.2-1.3) mg/dL AST 35 (17-59) IU/L ALT 30 (21-72) IU/L Alkaline Phosphatase 66 (38-126) U/L Total Creatine Kinase 82 (55-170) U/L CK-MB (CK-2) TNP CK-MB (CK-2) Rel Index TNP Troponin I < 0.012 (0.01-0.034) ng/mL B-Natriuretic Peptide (<100) Total Protein 7.9 (6.3-8.2) g/dL Albumin 4.4 (3.5-5.0) g/dL Globulin 3.5 (1.7-4.1) g/dL Albumin/Globulin Ratio 1.3 (1.0-2.8) Triglycerides (35-150) mg/dL Cholesterol (140-199) mg/dL LDL Cholesterol, Calc (<100) mg/dL HDL Cholesterol (40-60) mg/dL Lipase 81 (23-300) U/L Procalcitonin (<0.5) ng/mL Chlamy pneumoniae PCR (Not Detect) Adenovirus (PCR) (Not Detect) B.parapertussis DNA PCR (Not Detect) Coronavirus OC43 (PCR) (Not Detect) Coronavirus HKU1 (PCR) (Not Detect) Coronavirus 229E (PCR) (Not Detect) Coronavirus NL63 (PCR) (Not Detect) Human Metapneumovir PCR (Not Detect) Influenza Type A (PCR) (Not Detect) Influenza Type B (PCR) (Not Detect) M. pneumoniae (PCR) (Not Detect) Parainfluenza 1 (PCR) (Not Detect) Parainfluenza 2 (PCR) (Not Detect) Parainfluenza 3 (PCR) (Not Detect) Parainfluenza 4 (PCR) (Not Detect) RSV (PCR) (Not Detect) Entero/Rhino (PCR) (Not Detect) 10/04/18 10/05/18 10/05/18 Range/Units 14:10 05:27 05:27 WBC 6.0 (4.5-11.0) X10^3/uL RBC 4.20 L (4.5-5.9) X10^6/uL Hgb 14.5 (13.5-17.5) g/dL Hct 41.4 (41-53) % MCV 98.5 (80-100) fL MCH 34.5 H (26-34) PG MCHC 35.0 (30-36) % RDW 13.3 (11.6-14.8) % Plt Count 164 (150-400) X10^3/uL Neut % (Auto) 67.5 (50-75) % Lymph % (Auto) 19.4 L (25-40) % [place] % (Auto) 10.1 (3-14) % Eos % (Auto) 2.3 (2-4) % Baso % (Auto) 0.7 (0-2) % Neut # (Auto) 4000 (0784-1476) /uL Lymph # (Auto) 1200 (9522-5481) /uL [place] # (Auto) 600 (0-900) /uL Eos # (Auto) 100 (0-450) /uL Baso # (Auto) 0 (0-100) /uL PT (10.1-12.7) SECONDS INR (0.9-1.3) Sodium 126 L (137-145) mmol/L Potassium 3.9 (3.4-5.1) mmol/L Chloride 87 L (98-107) mmol/L Carbon Dioxide 30 (22-32) mmol/L BUN 12 (9-20) mg/dL Creatinine 0.60 L (0.66-1.25) mg/dL Estimated GFR > 60.0 (>60) mL/min BUN/Creatinine Ratio 20.0 (6-22) Glucose 100 (80-110) mg/dL Calcium 9.0 (8.4-10.2) mg/dL Magnesium (1.6-2.3) mg/dL Total Bilirubin (0.2-1.3) mg/dL AST (17-59) IU/L ALT (21-72) IU/L Alkaline Phosphatase (38-126) U/L Total Creatine Kinase (55-170) U/L CK-MB (CK-2) CK-MB (CK-2) Rel Index Troponin I (0.01-0.034) ng/mL B-Natriuretic Peptide 155 H (<100) Total Protein (6.3-8.2) g/dL Albumin (3.5-5.0) g/dL Globulin (1.7-4.1) g/dL Albumin/Globulin Ratio (1.0-2.8) Triglycerides (35-150) mg/dL Cholesterol (140-199) mg/dL LDL Cholesterol, Calc (<100) mg/dL HDL Cholesterol (40-60) mg/dL Lipase (23-300) U/L Procalcitonin (<0.5) ng/mL Chlamy pneumoniae PCR (Not Detect) Adenovirus (PCR) (Not Detect) B.parapertussis DNA PCR (Not Detect) Coronavirus OC43 (PCR) (Not Detect) Coronavirus HKU1 (PCR) (Not Detect) Coronavirus 229E (PCR) (Not Detect) Coronavirus NL63 (PCR) (Not Detect) Human Metapneumovir PCR (Not Detect) Influenza Type A (PCR) (Not Detect) Influenza Type B (PCR) (Not Detect) M. pneumoniae (PCR) (Not Detect) Parainfluenza 1 (PCR) (Not Detect) Parainfluenza 2 (PCR) (Not Detect) Parainfluenza 3 (PCR) (Not Detect) Parainfluenza 4 (PCR) (Not Detect) RSV (PCR) (Not Detect) Entero/Rhino (PCR) (Not Detect) 10/05/18 10/05/18 10/05/18 Range/Units 05:27 05:27 05:27 WBC (4.5-11.0) X10^3/uL RBC (4.5-5.9) X10^6/uL Hgb (13.5-17.5) g/dL Hct (41-53) % MCV (80-100) fL MCH (26-34) PG MCHC (30-36) % RDW (11.6-14.8) % Plt Count (150-400) X10^3/uL Neut % (Auto) (50-75) % Lymph % (Auto) (25-40) % [place] % (Auto) (3-14) % Eos % (Auto) (2-4) % Baso % (Auto) (0-2) % Neut # (Auto) (7104-6378) /uL Lymph # (Auto) (6672-2780) /uL [place] # (Auto) (0-900) /uL Eos # (Auto) (0-450) /uL Baso # (Auto) (0-100) /uL PT (10.1-12.7) SECONDS INR (0.9-1.3) Sodium (137-145) mmol/L Potassium (3.4-5.1) mmol/L Chloride (98-107) mmol/L Carbon Dioxide (22-32) mmol/L BUN (9-20) mg/dL Creatinine (0.66-1.25) mg/dL Estimated GFR (>60) mL/min BUN/Creatinine Ratio (6-22) Glucose (80-110) mg/dL Calcium (8.4-10.2) mg/dL Magnesium 1.6 (1.6-2.3) mg/dL Total Bilirubin (0.2-1.3) mg/dL AST (17-59) IU/L ALT (21-72) IU/L Alkaline Phosphatase (38-126) U/L Total Creatine Kinase (55-170) U/L CK-MB (CK-2) CK-MB (CK-2) Rel Index Troponin I < 0.012 (0.01-0.034) ng/mL B-Natriuretic Peptide (<100) Total Protein (6.3-8.2) g/dL Albumin (3.5-5.0) g/dL Globulin (1.7-4.1) g/dL Albumin/Globulin Ratio (1.0-2.8) Triglycerides 45 (35-150) mg/dL Cholesterol 124 L (140-199) mg/dL LDL Cholesterol, Calc 30 (<100) mg/dL HDL Cholesterol 85 H (40-60) mg/dL Lipase (23-300) U/L Procalcitonin 2.60 H (<0.5) ng/mL Chlamy pneumoniae PCR (Not Detect) Adenovirus (PCR) (Not Detect) B.parapertussis DNA PCR (Not Detect) Coronavirus OC43 (PCR) (Not Detect) Coronavirus HKU1 (PCR) (Not Detect) Coronavirus 229E (PCR) (Not Detect) Coronavirus NL63 (PCR) (Not Detect) Human Metapneumovir PCR (Not Detect) Influenza Type A (PCR) (Not Detect) Influenza Type B (PCR) (Not Detect) M. pneumoniae (PCR) (Not Detect) Parainfluenza 1 (PCR) (Not Detect) Parainfluenza 2 (PCR) (Not Detect) Parainfluenza 3 (PCR) (Not Detect) Parainfluenza 4 (PCR) (Not Detect) RSV (PCR) (Not Detect) Entero/Rhino (PCR) (Not Detect) 10/05/18 10/06/18 10/06/18 Range/Units 06:48 05:07 05:07 WBC 6.8 (4.5-11.0) X10^3/uL RBC 4.22 L (4.5-5.9) X10^6/uL Hgb 14.6 (13.5-17.5) g/dL Hct 42.4 (41-53) % MCV 100.4 H (80-100) fL MCH 34.6 H (26-34) PG MCHC 34.5 (30-36) % RDW 13.5 (11.6-14.8) % Plt Count 154 (150-400) X10^3/uL Neut % (Auto) 71.6 (50-75) % Lymph % (Auto) 14.0 L (25-40) % [place] % (Auto) 10.9 (3-14) % Eos % (Auto) 2.9 (2-4) % Baso % (Auto) 0.6 (0-2) % Neut # (Auto) 4800 (7968-6243) /uL Lymph # (Auto) 900 L (4255-6211) /uL [place] # (Auto) 700 (0-900) /uL Eos # (Auto) 200 (0-450) /uL Baso # (Auto) 0 (0-100) /uL PT (10.1-12.7) SECONDS INR (0.9-1.3) Sodium 128 L (137-145) mmol/L Potassium 3.8 (3.4-5.1) mmol/L Chloride 88 L (98-107) mmol/L Carbon Dioxide 32 (22-32) mmol/L BUN 14 (9-20) mg/dL Creatinine 0.70 (0.66-1.25) mg/dL Estimated GFR > 60.0 (>60) mL/min BUN/Creatinine Ratio 20.0 (6-22) Glucose 108 (80-110) mg/dL Calcium 9.1 (8.4-10.2) mg/dL Magnesium (1.6-2.3) mg/dL Total Bilirubin (0.2-1.3) mg/dL AST (17-59) IU/L ALT (21-72) IU/L Alkaline Phosphatase (38-126) U/L Total Creatine Kinase (55-170) U/L CK-MB (CK-2) CK-MB (CK-2) Rel Index Troponin I (0.01-0.034) ng/mL B-Natriuretic Peptide (<100) Total Protein (6.3-8.2) g/dL Albumin (3.5-5.0) g/dL Globulin (1.7-4.1) g/dL Albumin/Globulin Ratio (1.0-2.8) Triglycerides (35-150) mg/dL Cholesterol (140-199) mg/dL LDL Cholesterol, Calc (<100) mg/dL HDL Cholesterol (40-60) mg/dL Lipase (23-300) U/L Procalcitonin (<0.5) ng/mL Chlamy pneumoniae PCR Not detected (Not Detect) Adenovirus (PCR) Not detected (Not Detect) B.parapertussis DNA PCR Not detected (Not Detect) Coronavirus OC43 (PCR) Not detected (Not Detect) Coronavirus HKU1 (PCR) Not detected (Not Detect) Coronavirus 229E (PCR) Not detected (Not Detect) Coronavirus NL63 (PCR) Not detected (Not Detect) Human Metapneumovir PCR Not detected (Not Detect) Influenza Type A (PCR) Not detected (Not Detect) Influenza Type B (PCR) Not detected (Not Detect) M. pneumoniae (PCR) Not detected (Not Detect) Parainfluenza 1 (PCR) Not detected (Not Detect) Parainfluenza 2 (PCR) Not detected (Not Detect) Parainfluenza 3 (PCR) Not detected (Not Detect) Parainfluenza 4 (PCR) Not detected (Not Detect) RSV (PCR) Not detected (Not Detect) Entero/Rhino (PCR) Not detected (Not Detect) 10/07/18 10/07/18 Range/Units 05:25 05:25 WBC 5.5 (4.5-11.0) X10^3/uL RBC 4.14 L (4.5-5.9) X10^6/uL Hgb 14.2 (13.5-17.5) g/dL Hct 40.8 L (41-53) % MCV 98.6 (80-100) fL MCH 34.4 H (26-34) PG MCHC 34.9 (30-36) % RDW 13.4 (11.6-14.8) % Plt Count 156 (150-400) X10^3/uL Neut % (Auto) 63.9 (50-75) % Lymph % (Auto) 19.8 L (25-40) % [place] % (Auto) 11.5 (3-14) % Eos % (Auto) 3.9 (2-4) % Baso % (Auto) 0.9 (0-2) % Neut # (Auto) 3500 (6641-0538) /uL Lymph # (Auto) 1100 (1841-4286) /uL [place] # (Auto) 600 (0-900) /uL Eos # (Auto) 200 (0-450) /uL Baso # (Auto) 0 (0-100) /uL PT (10.1-12.7) SECONDS INR (0.9-1.3) Sodium 129 L (137-145) mmol/L Potassium 3.6 (3.4-5.1) mmol/L Chloride 88 L (98-107) mmol/L Carbon Dioxide 32 (22-32) mmol/L BUN 18 (9-20) mg/dL Creatinine 0.70 (0.66-1.25) mg/dL Estimated GFR > 60.0 (>60) mL/min BUN/Creatinine Ratio 25.7 H (6-22) Glucose 104 (80-110) mg/dL Calcium 9.0 (8.4-10.2) mg/dL Magnesium 1.7 (1.6-2.3) mg/dL Total Bilirubin 1.4 H (0.2-1.3) mg/dL AST 32 (17-59) IU/L ALT 33 (21-72) IU/L Alkaline Phosphatase 61 (38-126) U/L Total Creatine Kinase (55-170) U/L CK-MB (CK-2) CK-MB (CK-2) Rel Index Troponin I (0.01-0.034) ng/mL B-Natriuretic Peptide (<100) Total Protein 7.2 (6.3-8.2) g/dL Albumin 4.0 (3.5-5.0) g/dL Globulin 3.2 (1.7-4.1) g/dL Albumin/Globulin Ratio 1.3 (1.0-2.8) Triglycerides (35-150) mg/dL Cholesterol (140-199) mg/dL LDL Cholesterol, Calc (<100) mg/dL HDL Cholesterol (40-60) mg/dL Lipase (23-300) U/L Procalcitonin (<0.5) ng/mL Chlamy pneumoniae PCR (Not Detect) Adenovirus (PCR) (Not Detect) B.parapertussis DNA PCR (Not Detect) Coronavirus OC43 (PCR) (Not Detect) Coronavirus HKU1 (PCR) (Not Detect) Coronavirus 229E (PCR) (Not Detect) Coronavirus NL63 (PCR) (Not Detect) Human Metapneumovir PCR (Not Detect) Influenza Type A (PCR) (Not Detect) Influenza Type B (PCR) (Not Detect) M. pneumoniae (PCR) (Not Detect) Parainfluenza 1 (PCR) (Not Detect) Parainfluenza 2 (PCR) (Not Detect) Parainfluenza 3 (PCR) (Not Detect) Parainfluenza 4 (PCR) (Not Detect) RSV (PCR) (Not Detect) Entero/Rhino (PCR) (Not Detect) Urine Dip Bedside Urine Glucose Negative Bedside Urine Bilirubin - Negative Bedside Urine Ketone - Negative Urine Specific [place] 1.015 Bedside Urine Occult Blood - Negative Bedside Urine pH 6.0 Bedside Urine Protein - Negative Bedside Urine Urobilinogen 1+ 2mg Bedside Urine Nitrite - Negative Bedside Urine Leukocytes - Negative Esterase ECG Data Interpretation: EKG shows sinus rhythm with no ST elevation or depression. No ectopy. Ventricular rate of 67 QRS duration of 110. QTC of 443. MDM Narrative Medical decision making narrative: CBC was obtained and shows normal white count and is otherwise unremarkable. Chem panel shows sodium level of 121 and chloride of 84. CT of the chest and chest x-ray shows findings consistent with CHF. EKG shows sinus rhythm with no ST elevation or depression cardiac enzymes were obtained and were negative. Do not appreciate signs of infection at this time. Signs and symptoms presents as CHF with hyponatremia. Patient is admitted to inpatient services to correct sodium levels and diurese. <Bright Barclay DO - Last Filed: 10/07/18 07:06> Lab Data Lab Results 10/04/18 10/04/18 10/04/18 Range/Units 14:10 14:10 14:10 WBC 6.5 (4.5-11.0) X10^3/uL RBC 4.33 L (4.5-5.9) X10^6/uL Hgb 15.1 (13.5-17.5) g/dL Hct 41.9 (41-53) % MCV 96.8 (80-100) fL MCH 34.9 H (26-34) PG MCHC 36.0 (30-36) % RDW 13.2 (11.6-14.8) % Plt Count 180 (150-400) X10^3/uL Neut % (Auto) 70.6 (50-75) % Lymph % (Auto) 16.7 L (25-40) % [place] % (Auto) 9.4 (3-14) % Eos % (Auto) 2.3 (2-4) % Baso % (Auto) 1.0 (0-2) % Neut # (Auto) 4600 (5760-8415) /uL Lymph # (Auto) 1100 (1894-3887) /uL [place] # (Auto) 600 (0-900) /uL Eos # (Auto) 200 (0-450) /uL Baso # (Auto) 100 (0-100) /uL PT 12.3 (10.1-12.7) SECONDS INR 1.1 (0.9-1.3) Sodium 121 L (137-145) mmol/L Potassium 4.3 (3.4-5.1) mmol/L Chloride 84 L (98-107) mmol/L Carbon Dioxide 26 (22-32) mmol/L BUN 11 (9-20) mg/dL Creatinine 0.50 L (0.66-1.25) mg/dL Estimated GFR > 60.0 (>60) mL/min BUN/Creatinine Ratio 22.0 (6-22) Glucose 101 (80-110) mg/dL Calcium 9.1 (8.4-10.2) mg/dL Magnesium (1.6-2.3) mg/dL Total Bilirubin 2.2 H (0.2-1.3) mg/dL AST 35 (17-59) IU/L ALT 30 (21-72) IU/L Alkaline Phosphatase 66 (38-126) U/L Total Creatine Kinase 82 (55-170) U/L CK-MB (CK-2) TNP CK-MB (CK-2) Rel Index TNP Troponin I < 0.012 (0.01-0.034) ng/mL B-Natriuretic Peptide (<100) Total Protein 7.9 (6.3-8.2) g/dL Albumin 4.4 (3.5-5.0) g/dL Globulin 3.5 (1.7-4.1) g/dL Albumin/Globulin Ratio 1.3 (1.0-2.8) Triglycerides (35-150) mg/dL Cholesterol (140-199) mg/dL LDL Cholesterol, Calc (<100) mg/dL HDL Cholesterol (40-60) mg/dL Lipase 81 (23-300) U/L Procalcitonin (<0.5) ng/mL Chlamy pneumoniae PCR (Not Detect) Adenovirus (PCR) (Not Detect) B.parapertussis DNA PCR (Not Detect) Coronavirus OC43 (PCR) (Not Detect) Coronavirus HKU1 (PCR) (Not Detect) Coronavirus 229E (PCR) (Not Detect) Coronavirus NL63 (PCR) (Not Detect) Human Metapneumovir PCR (Not Detect) Influenza Type A (PCR) (Not Detect) Influenza Type B (PCR) (Not Detect) M. pneumoniae (PCR) (Not Detect) Parainfluenza 1 (PCR) (Not Detect) Parainfluenza 2 (PCR) (Not Detect) Parainfluenza 3 (PCR) (Not Detect) Parainfluenza 4 (PCR) (Not Detect) RSV (PCR) (Not Detect) Entero/Rhino (PCR) (Not Detect) 10/04/18 10/05/18 10/05/18 Range/Units 14:10 05:27 05:27 WBC 6.0 (4.5-11.0) X10^3/uL RBC 4.20 L (4.5-5.9) X10^6/uL Hgb 14.5 (13.5-17.5) g/dL Hct 41.4 (41-53) % MCV 98.5 (80-100) fL MCH 34.5 H (26-34) PG MCHC 35.0 (30-36) % RDW 13.3 (11.6-14.8) % Plt Count 164 (150-400) X10^3/uL Neut % (Auto) 67.5 (50-75) % Lymph % (Auto) 19.4 L (25-40) % [place] % (Auto) 10.1 (3-14) % Eos % (Auto) 2.3 (2-4) % Baso % (Auto) 0.7 (0-2) % Neut # (Auto) 4000 (1195-2261) /uL Lymph # (Auto) 1200 (3595-1660) /uL [place] # (Auto) 600 (0-900) /uL Eos # (Auto) 100 (0-450) /uL Baso # (Auto) 0 (0-100) /uL PT (10.1-12.7) SECONDS INR (0.9-1.3) Sodium 126 L (137-145) mmol/L Potassium 3.9 (3.4-5.1) mmol/L Chloride 87 L (98-107) mmol/L Carbon Dioxide 30 (22-32) mmol/L BUN 12 (9-20) mg/dL Creatinine 0.60 L (0.66-1.25) mg/dL Estimated GFR > 60.0 (>60) mL/min BUN/Creatinine Ratio 20.0 (6-22) Glucose 100 (80-110) mg/dL Calcium 9.0 (8.4-10.2) mg/dL Magnesium (1.6-2.3) mg/dL Total Bilirubin (0.2-1.3) mg/dL AST (17-59) IU/L ALT (21-72) IU/L Alkaline Phosphatase (38-126) U/L Total Creatine Kinase (55-170) U/L CK-MB (CK-2) CK-MB (CK-2) Rel Index Troponin I (0.01-0.034) ng/mL B-Natriuretic Peptide 155 H (<100) Total Protein (6.3-8.2) g/dL Albumin (3.5-5.0) g/dL Globulin (1.7-4.1) g/dL Albumin/Globulin Ratio (1.0-2.8) Triglycerides (35-150) mg/dL Cholesterol (140-199) mg/dL LDL Cholesterol, Calc (<100) mg/dL HDL Cholesterol (40-60) mg/dL Lipase (23-300) U/L Procalcitonin (<0.5) ng/mL Chlamy pneumoniae PCR (Not Detect) Adenovirus (PCR) (Not Detect) B.parapertussis DNA PCR (Not Detect) Coronavirus OC43 (PCR) (Not Detect) Coronavirus HKU1 (PCR) (Not Detect) Coronavirus 229E (PCR) (Not Detect) Coronavirus NL63 (PCR) (Not Detect) Human Metapneumovir PCR (Not Detect) Influenza Type A (PCR) (Not Detect) Influenza Type B (PCR) (Not Detect) M. pneumoniae (PCR) (Not Detect) Parainfluenza 1 (PCR) (Not Detect) Parainfluenza 2 (PCR) (Not Detect) Parainfluenza 3 (PCR) (Not Detect) Parainfluenza 4 (PCR) (Not Detect) RSV (PCR) (Not Detect) Entero/Rhino (PCR) (Not Detect) 10/05/18 10/05/18 10/05/18 Range/Units 05:27 05:27 05:27 WBC (4.5-11.0) X10^3/uL RBC (4.5-5.9) X10^6/uL Hgb (13.5-17.5) g/dL Hct (41-53) % MCV (80-100) fL MCH (26-34) PG MCHC (30-36) % RDW (11.6-14.8) % Plt Count (150-400) X10^3/uL Neut % (Auto) (50-75) % Lymph % (Auto) (25-40) % [place] % (Auto) (3-14) % Eos % (Auto) (2-4) % Baso % (Auto) (0-2) % Neut # (Auto) (5060-9241) /uL Lymph # (Auto) (7342-9713) /uL [place] # (Auto) (0-900) /uL Eos # (Auto) (0-450) /uL Baso # (Auto) (0-100) /uL PT (10.1-12.7) SECONDS INR (0.9-1.3) Sodium (137-145) mmol/L Potassium (3.4-5.1) mmol/L Chloride (98-107) mmol/L Carbon Dioxide (22-32) mmol/L BUN (9-20) mg/dL Creatinine (0.66-1.25) mg/dL Estimated GFR (>60) mL/min BUN/Creatinine Ratio (6-22) Glucose (80-110) mg/dL Calcium (8.4-10.2) mg/dL Magnesium 1.6 (1.6-2.3) mg/dL Total Bilirubin (0.2-1.3) mg/dL AST (17-59) IU/L ALT (21-72) IU/L Alkaline Phosphatase (38-126) U/L Total Creatine Kinase (55-170) U/L CK-MB (CK-2) CK-MB (CK-2) Rel Index Troponin I < 0.012 (0.01-0.034) ng/mL B-Natriuretic Peptide (<100) Total Protein (6.3-8.2) g/dL Albumin (3.5-5.0) g/dL Globulin (1.7-4.1) g/dL Albumin/Globulin Ratio (1.0-2.8) Triglycerides 45 (35-150) mg/dL Cholesterol 124 L (140-199) mg/dL LDL Cholesterol, Calc 30 (<100) mg/dL HDL Cholesterol 85 H (40-60) mg/dL Lipase (23-300) U/L Procalcitonin 2.60 H (<0.5) ng/mL Chlamy pneumoniae PCR (Not Detect) Adenovirus (PCR) (Not Detect) B.parapertussis DNA PCR (Not Detect) Coronavirus OC43 (PCR) (Not Detect) Coronavirus HKU1 (PCR) (Not Detect) Coronavirus 229E (PCR) (Not Detect) Coronavirus NL63 (PCR) (Not Detect) Human Metapneumovir PCR (Not Detect) Influenza Type A (PCR) (Not Detect) Influenza Type B (PCR) (Not Detect) M. pneumoniae (PCR) (Not Detect) Parainfluenza 1 (PCR) (Not Detect) Parainfluenza 2 (PCR) (Not Detect) Parainfluenza 3 (PCR) (Not Detect) Parainfluenza 4 (PCR) (Not Detect) RSV (PCR) (Not Detect) Entero/Rhino (PCR) (Not Detect) 10/05/18 10/06/18 10/06/18 Range/Units 06:48 05:07 05:07 WBC 6.8 (4.5-11.0) X10^3/uL RBC 4.22 L (4.5-5.9) X10^6/uL Hgb 14.6 (13.5-17.5) g/dL Hct 42.4 (41-53) % MCV 100.4 H (80-100) fL MCH 34.6 H (26-34) PG MCHC 34.5 (30-36) % RDW 13.5 (11.6-14.8) % Plt Count 154 (150-400) X10^3/uL Neut % (Auto) 71.6 (50-75) % Lymph % (Auto) 14.0 L (25-40) % [place] % (Auto) 10.9 (3-14) % Eos % (Auto) 2.9 (2-4) % Baso % (Auto) 0.6 (0-2) % Neut # (Auto) 4800 (0709-2728) /uL Lymph # (Auto) 900 L (7407-4358) /uL [place] # (Auto) 700 (0-900) /uL Eos # (Auto) 200 (0-450) /uL Baso # (Auto) 0 (0-100) /uL PT (10.1-12.7) SECONDS INR (0.9-1.3) Sodium 128 L (137-145) mmol/L Potassium 3.8 (3.4-5.1) mmol/L Chloride 88 L (98-107) mmol/L Carbon Dioxide 32 (22-32) mmol/L BUN 14 (9-20) mg/dL Creatinine 0.70 (0.66-1.25) mg/dL Estimated GFR > 60.0 (>60) mL/min BUN/Creatinine Ratio 20.0 (6-22) Glucose 108 (80-110) mg/dL Calcium 9.1 (8.4-10.2) mg/dL Magnesium (1.6-2.3) mg/dL Total Bilirubin (0.2-1.3) mg/dL AST (17-59) IU/L ALT (21-72) IU/L Alkaline Phosphatase (38-126) U/L Total Creatine Kinase (55-170) U/L CK-MB (CK-2) CK-MB (CK-2) Rel Index Troponin I (0.01-0.034) ng/mL B-Natriuretic Peptide (<100) Total Protein (6.3-8.2) g/dL Albumin (3.5-5.0) g/dL Globulin (1.7-4.1) g/dL Albumin/Globulin Ratio (1.0-2.8) Triglycerides (35-150) mg/dL Cholesterol (140-199) mg/dL LDL Cholesterol, Calc (<100) mg/dL HDL Cholesterol (40-60) mg/dL Lipase (23-300) U/L Procalcitonin (<0.5) ng/mL Chlamy pneumoniae PCR Not detected (Not Detect) Adenovirus (PCR) Not detected (Not Detect) B.parapertussis DNA PCR Not detected (Not Detect) Coronavirus OC43 (PCR) Not detected (Not Detect) Coronavirus HKU1 (PCR) Not detected (Not Detect) Coronavirus 229E (PCR) Not detected (Not Detect) Coronavirus NL63 (PCR) Not detected (Not Detect) Human Metapneumovir PCR Not detected (Not Detect) Influenza Type A (PCR) Not detected (Not Detect) Influenza Type B (PCR) Not detected (Not Detect) M. pneumoniae (PCR) Not detected (Not Detect) Parainfluenza 1 (PCR) Not detected (Not Detect) Parainfluenza 2 (PCR) Not detected (Not Detect) Parainfluenza 3 (PCR) Not detected (Not Detect) Parainfluenza 4 (PCR) Not detected (Not Detect) RSV (PCR) Not detected (Not Detect) Entero/Rhino (PCR) Not detected (Not Detect) 10/07/18 10/07/18 Range/Units 05:25 05:25 WBC 5.5 (4.5-11.0) X10^3/uL RBC 4.14 L (4.5-5.9) X10^6/uL Hgb 14.2 (13.5-17.5) g/dL Hct 40.8 L (41-53) % MCV 98.6 (80-100) fL MCH 34.4 H (26-34) PG MCHC 34.9 (30-36) % RDW 13.4 (11.6-14.8) % Plt Count 156 (150-400) X10^3/uL Neut % (Auto) 63.9 (50-75) % Lymph % (Auto) 19.8 L (25-40) % [place] % (Auto) 11.5 (3-14) % Eos % (Auto) 3.9 (2-4) % Baso % (Auto) 0.9 (0-2) % Neut # (Auto) 3500 (9503-9579) /uL Lymph # (Auto) 1100 (1519-7336) /uL [place] # (Auto) 600 (0-900) /uL Eos # (Auto) 200 (0-450) /uL Baso # (Auto) 0 (0-100) /uL PT (10.1-12.7) SECONDS INR (0.9-1.3) Sodium 129 L (137-145) mmol/L Potassium 3.6 (3.4-5.1) mmol/L Chloride 88 L (98-107) mmol/L Carbon Dioxide 32 (22-32) mmol/L BUN 18 (9-20) mg/dL Creatinine 0.70 (0.66-1.25) mg/dL Estimated GFR > 60.0 (>60) mL/min BUN/Creatinine Ratio 25.7 H (6-22) Glucose 104 (80-110) mg/dL Calcium 9.0 (8.4-10.2) mg/dL Magnesium 1.7 (1.6-2.3) mg/dL Total Bilirubin 1.4 H (0.2-1.3) mg/dL AST 32 (17-59) IU/L ALT 33 (21-72) IU/L Alkaline Phosphatase 61 (38-126) U/L Total Creatine Kinase (55-170) U/L CK-MB (CK-2) CK-MB (CK-2) Rel Index Troponin I (0.01-0.034) ng/mL B-Natriuretic Peptide (<100) Total Protein 7.2 (6.3-8.2) g/dL Albumin 4.0 (3.5-5.0) g/dL Globulin 3.2 (1.7-4.1) g/dL Albumin/Globulin Ratio 1.3 (1.0-2.8) Triglycerides (35-150) mg/dL Cholesterol (140-199) mg/dL LDL Cholesterol, Calc (<100) mg/dL HDL Cholesterol (40-60) mg/dL Lipase (23-300) U/L Procalcitonin (<0.5) ng/mL Chlamy pneumoniae PCR (Not Detect) Adenovirus (PCR) (Not Detect) B.parapertussis DNA PCR (Not Detect) Coronavirus OC43 (PCR) (Not Detect) Coronavirus HKU1 (PCR) (Not Detect) Coronavirus 229E (PCR) (Not Detect) Coronavirus NL63 (PCR) (Not Detect) Human Metapneumovir PCR (Not Detect) Influenza Type A (PCR) (Not Detect) Influenza Type B (PCR) (Not Detect) M. pneumoniae (PCR) (Not Detect) Parainfluenza 1 (PCR) (Not Detect) Parainfluenza 2 (PCR) (Not Detect) Parainfluenza 3 (PCR) (Not Detect) Parainfluenza 4 (PCR) (Not Detect) RSV (PCR) (Not Detect) Entero/Rhino (PCR) (Not Detect) Urine Dip Bedside Urine Glucose Negative Bedside Urine Bilirubin - Negative Bedside Urine Ketone - Negative Urine Specific [place] 1.015 Bedside Urine Occult Blood - Negative Bedside Urine pH 6.0 Bedside Urine Protein - Negative Bedside Urine Urobilinogen 1+ 2mg Bedside Urine Nitrite - Negative Bedside Urine Leukocytes - Negative Esterase Discharge Plan Departure Patient Disposition: Admitted As Inpatient Clinical Impression: Hyponatremia Discharge Date/Time: 10/04/18 18:07 Interventions: ED Discharge Assessment Last Done: 10/04/18 17:57 Admit Date/Time: 10/04/18 17:26 Admit Provider: Denita Blunt <Bright aBrclay DO - Last Filed: 10/07/18 07:06> Cosign ED Attending David Attestation: I was available for consultation during this patient's emergency department encounter
--- NOTE | 2018-10-04 19:52 | PC.NURSE ---
Addendum entered by Albertina Garsia R.N. 10/04/18 20:02: telemetry @ 1919- [facility], BBB. Original Note: 1929-Pt arrived to room 218 from ED via wheelchair, able to move to bed indep. Dx CHF and hyponatermia. A/O x3, SOB with rest and exertion, pt reports much better than when he arrived to ED, 97% 2L nc, LS exp wheezing throughout lung bryan, coughing intermittently, non productive. Telemetry in place, Hx HTN, hyperlipidemia, and chronic Keflex for right knee hardware infections. Reports comfortable. Provided with sandwich/soup/water. Bt=, denies nausea. Denies pain. Urinal at bedside, SBA to stand to use urinal. Received lazix in ED, voiding clear yellow urine. Bed alarm on for safety.
[2018-10-05] VITALS (8 sets, daily range): BP systolic 121–145; BP diastolic 51–69; PULSE 65–77; RESP 16–18; TEMP 36.4–36.8; O2SAT 89–100
--- NOTE | 2018-10-05 | DI.ECHO.S_ITS ---
[facility]---------+ [facility] +---------+ : : [address] [place] : : : : [id number] : : : : Phone: [phone] Echocardiogram Report + + :Name: FARZAD MENDOZA Study Date: 10/05/2018 Height: 72 in : :[facility] Weight: 361 lb : : Gender: Male BSA: 2.7 m2 : :: 1940 Age: 77 yrs BP: 120/90 mmHg: :Reason For Study: Atrial fibrillation : : Performed By: Doreen Ulloa : :Referring: MERRILL GAYLE : + + Interpretation Summary The left ventricle is normal in size. Left ventricular systolic function is low normal. The ejection fraction is estimated to be 50-55%. There are no obvious focal wall motion abnormalities noted but poor endocardial definition reduces the sensitivity for the detection of such. Diastolic function could not be accurately assessed due to atrial fibrillation. The right ventricle grossly appears normal in size with probable normal systolic function. Right ventricular systolic pressure is estimated to be 37 mmHg plus the clinically estimated CVP which cannot be estimated on this exam. The left atrium is severely dilated. The right atrium is severely dilated. There is no significant valvular heart disease. The aortic root is mildly dilated. Procedure: A two-dimensional transthoracic echocardiogram with color flow and Doppler was performed. The study quality was technically adequate. There is no prior echocardiogram noted for this patient. The patient was in atrial fibrillation with heart rates between 59-72 bpm during the exam. Left Ventricle: The left ventricle is normal in size. Left ventricular wall thickness is mildly increased. Left ventricular systolic function is low normal. The ejection fraction is estimated to be 50-55%. There are no obvious focal wall motion abnormalities noted but poor endocardial definition reduces the sensitivity for the detection of such. Diastolic function could not be accurately assessed due to atrial fibrillation. Right Ventricle: The right ventricle grossly appears normal in size with probable normal systolic function. Atria: The left atrium is severely dilated. The right atrium is severely dilated. The interatrial septum is intact with no evidence for an atrial septal defect. Mitral Valve: The mitral valve is grossly normal. There is trace mitral regurgitation. Aortic Valve: The aortic valve opens well. No aortic regurgitation is present. Tricuspid Valve: The tricuspid valve leaflets are thin and pliable. There is mild tricuspid regurgitation. Right ventricular systolic pressure is estimated to be 37 mmHg plus the clinically estimated CVP which cannot be estimated on this exam. Pulmonic Valve: The pulmonic valve is not well visualized. There is no significant valvular heart disease. Great Vessels: The aortic root is mildly dilated. The ascending aorta could not be visualized. The inferior vena cava was not well visualized. Pericardium/ Pleura There is no pericardial effusion. There is no pleural effusion. MMode/2D Measurements & Calculations LVIDd: 5.0 cm Ao root diam: 4.0 cm LVIDs: 4.1 cm Aortic Jxn: 3.3 cm FS: 18.9 % EPSS: 0.57 cm IVSd: 1.3 cm LVPWd: 1.2 cm LV lopez. diameter/BSA (cm/m^2): 1.8 LV sys. diameter/BSA (cm/m^2): 1.5 LA dimension: 5.7 cm RA long axis: 7.3 cm LA A2 area: 40.6 cm2 RA area: 35.5 cm2 LA A4 area: 40.4 cm2 RA vol: 145.9 ml LA length (vol): 8.3 cm RA : 53.3 ml/m2 LA vol: 168.6 ml IVC diam: 3.0 cm LA vol index: 61.6 ml/m2 RVDd major: 6.3 cm RVD1 (basal): 3.6 cm RVD2 (mid): 2.9 cm Doppler Measurements & Calculations Ao V2 max: 178.3 cm/sec MV E max hayes: 117.8 cm/sec Ao V2 mean: 113.5 cm/sec MV A max hayes: 30.5 cm/sec Ao max P.7 mmHg MV E/A: 3.9 Ao mean P.1 mmHg Med Peak E' Hayes: 7.7 cm/sec Ao V2 VTI: 39.6 cm E/E' med: 15.3 Lat Peak E' Hayes: 8.3 cm/sec E/E' lat: 14.2 E/e' average: 14.7 MV dec time: 0.17 sec MV P1/2t: 48.9 msec TR max hayes: 308.8 cm/sec MV P1/2t max hayes: 119.3 cm/sec TR max P.1 mmHg MVA(P1/2t): 4.5 cm2 PA V2 max: 93.7 cm/sec PA V2 mean: 59.0 cm/sec PA mean P.7 mmHg PA Accel Time: 0.14 sec Reading Physician:01:28 PM
[2018-10-05] MEDS: SODIUM CHLORIDE 0.9% 250 ML 21 ML IV (01:31)
[2018-10-05] MEDS: FUROSEMIDE 40 MG/4 ML VIAL 20 MG IV ×3 (01:31→20:36)
[2018-10-05] MEDS: SODIUM CHLORIDE 0.9% FLUSH 10 ML IV ×3 (01:31→20:37)
--- NOTE | 2018-10-05 02:10 | PC.NURSE ---
Addendum entered by Reanna Rodriguez R.N. 10/05/18 06:54: Nasal swab for respiratory PCR collected and sent to lab Original Note: Addendum entered by Reanna Rodriguez R.N. 10/05/18 05:33: Slept at intervals. Noted to desat intermittently to 82% when asleep but rebounds quickly to mid/upper 90's. Christian WALKER informed. Original Note: Patient is alert and oriented. Breath sounds with expiratory rhonchi. Harsh sounding non productive cough. On oxygen at 2L/min per NC with sat of 95%. HR irregular; telemetry reading was afib SVR/CVR with BBB. Denies nausea. BT present and abdomen is large/round but soft. Having urinary frequency related to diuretics but denies dysuria, or urgency. Stands at side of bed to void. Able to turn himself. 1+ bilateral LE edema which is reportedly chronic. SCD's applied at start of shift. Denies any pain. CIWA is 0. Fall risk score is moderate; bed alarm is activated.
--- NOTE | 2018-10-05 05:38 | P.HP_ITS ---
History of Present Illness Date Patient Seen: 10/04/18 Time Patient Seen: 22:30 Chief complaint: SOB, cough Narrative: This is a 77-year-old male patient with a history hypertension, atrial fibrillation 30-45 pack year smoker, osteomyelitis right knee, alcohol abuse, sleep apnea, morbid obesity presents to the ER for increasing shortness of breath over the last few days. The patient has had coughing and shortness of breath for 6-8 weeks and has been treated through the walk-in clinic where he has been provided benzonatate and doxycycline without improvement. He reports no chest pain but feels chest tightness with cough. He denies headaches or chest wall pain. The patient shall reports gaining 20 lb over the same 6-8 weeks. Per the daughter the patient has also had increasing confusion and disorientation over the last several weeks. Patient describes cold symptoms at the onset of his cough however head congestion, fevers, chills and runny nose have all ablated. The patient also is reported by the daughter to have profound sleep apnea with the patient stopping breathing at night and will gasp for air and the patient endorses waking gasping short of breath. He has had sleep studies but was intolerant to CPAP. Additionally the patient endorses drinking a 6-8 pack daily with his last drink day before yesterday, approximately 36 hr ago. He denies ever having alcohol withdrawal complications hallucinations or seizures. He denies headaches or dizziness, visual changes but is hard hearing. Denies abdominal pain, nausea vomiting, constipation or diarrhea. He does endorse nocturia ?every hour?. Upon arrival in the ER the patient was found to be afebrile with 989 heart rate is 72 blood pressure of 119/48 however he is in acute respiratory failure with a respiratory rate of 32 and room air saturation of 89%. The patient was evaluated with a chest x-ray which reveals cardiomyopathy and describes pulmonary edema versus atelectasis versus pneumonia. On labs the patient's CBC is unremarkable, on chemistry is hyponatremic with a sodium 121, potassium 4.3 and has a BUN of 11 and creatinine of 0.5. He has a BNP of 155 and a troponin of less than 0.012. Patient History Medical History Alcohol abuse (Acute) Former smoker, stopped smoking in distant past (Acute) 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) Excessive drinking of alcohol (Chronic) Hayfever (Chronic) Morbid obesity (Chronic) Sleep apnea (Chronic) Chicken pox (Resolved ~1947) Measles (Resolved ~1947) Mumps (Resolved ~1948) Osteomyelitis (Resolved) Surgical History History of right knee joint replacement (Resolved) Family History Father CAD (coronary artery disease) [place] (myocardial infarction) Mother CAD (coronary artery disease) Severe hypertension Social History household members: family Smoking Status: Former smoker alcohol intake: current Family & Social History Family History Father CAD (coronary artery disease) [place] (myocardial infarction) Mother CAD (coronary artery disease) Severe hypertension Social History: household members family Prior Living Arrangements House Safety & Behavioral: Feels Safe in Current Yes Environment Been Physically Hurt or Yes Threatened By a Person Suicidal Ideation Description None Tobacco & Substance use: Smoking Status Former smoker Smoking packs per day 1.5 alcohol intake current alcohol intake frequency 3 or more drinks per day Substance Use Type does not use Comment: The patient was but has been for 38 years. He currently lives in a single family is single level home with his daughter. He has attained high school education and is currently retired. Both his parents are . Smokin to 45 pack year smoking history, quit 20 years ago Alcohol consumption: 6-8 pack daily. Last drink 36 hr ago Substance use: Patient denies recreation pharmaceuticals and does not use cannabis products. Advanced directive: Patient wishes to be a full code and does need his daughter Hawa as his surrogate decision maker. Meds Home Medications Medication Instructions Recorded Confirmed Type meloxicam 15 mg tablet 15 mg PO DAILY 06/10/18 10/04/18 History methylsulfonylmethane 1 dose PO DAILY 06/10/18 10/04/18 History omega-3 fatty acids 1 dose PO DAILY 06/10/18 10/04/18 History cephalexin 500 mg capsule 500 mg PO DAILY #40 cap 08/26/18 10/04/18 Rx benzonatate 100 mg capsule 100 mg PO BEDTIME #20 cap 09/30/18 10/04/18 Rx Disabled Parking Permit 1 ea MISCELLANEOUS DIRECTED 10/04/18 10/04/18 History amlodipine 10 mg PO DAILY 10/04/18 10/04/18 History atenolol 50 mg PO DAILY 10/04/18 10/04/18 History atorvastatin [Lipitor] 10 mg PO BEDTIME 10/04/18 10/04/18 History doxycycline hyclate 100 mg PO BIDX7 10/04/18 10/04/18 History losartan [Cozaar] 50 mg PO DAILY 10/04/18 10/04/18 History Allergies Allergy/AdvReac Type Severity Reaction Status Date / Time No Known Drug Allergies Allergy Verified 10/04/18 14:00 Review of Systems Review of Systems The patient has difficulty providing a subjective history. The patient's daughter is at bedside providing additional information Constitutional: Positive for fatigue and malaise, weight gain 20 lb in 2 months , Denies sweats, good appetite with stable weight Eyes: Denies visual changes, denies floaters, diplopia ENT: Hard of hearing, uses hearing aids (not present at bedside), Denies headaches, hearing changes, ear pain, no nasal congestion, rhinorrhea, no dysphagia, sore throat or dentalgia, no neck stiffness or pain Respiratory: Positive for shortness of breath, cough, exertional dyspnea obstructive sleep apnea, Denies wheezing Cardiovascular: Positive for atrial fibrillation, hypertension, Denies chest pain, palpitations, orthostatic dizziness, syncope, edema Gastrointestinal: Denies abdominal pain, nausea or vomiting, heartburn, reflux or bloating, constipation or diarrhea, denies blood in stool. Genitourinary: Positive for hourly nocturia denies discharge, no complains of burning or urgency, hematuria on voiding Musculoskeletal: Positive for impaired ambulation, pain right knee, stat prior right total knee replacement with revision,, decreased range of motion, denies falls, cramps, myalgia Integumentary: denies skin lesions, masses, rashes, hives, itching or hair loss Neurological: Positive for confusion denies dizziness, numbness or tingling, speech difficulties or seizures Psychiatric: Positive for alcohol abuse, former nicotine dependence, denies disturbances in thought, attentions or mood Endocrine: denies goiter, lethargy, abnormal sweating, and heat/cold intolerance. Heme/lymph: Denies lymphadenopathy, abnormal bleeding or bruising Exam Vital Signs (past 8 hours): - 10/04/18 16:56 10/04/18 18:15 10/04/18 20:16 Temperature 98.3 F 97.4 F L Pulse Rate 54 L 67 63 Respiratory Rate 19 20 16 Blood Pressure 100/55 L 125/58 L Blood Pressure [Left Arm] 122/48 L Pulse Oximetry 99 97 98 10/04/18 22:41 Temperature Pulse Rate Respiratory Rate Blood Pressure Blood Pressure [Left Arm] Pulse Oximetry 98 Oxygen Delivery Method Nasal Cannula Oxygen Flow Rate 2 Narrative Exam Narrative: General: Well developed, morbidly obese male with BMI of 49.9, afebrile and in no acute distress. Skin: Warm, dry, pink, no rashes, no visible lesions HEENT: Normocephalic, PERRLA, EOMs intact without nystagmus, conjunctiva moist, sclera is anicteric, hearing impaired, no sinus tenderness to percussion, no rhinorrhea, oropharynx is moist and pink without lesions or exudate, uvula midline, posterior pharynx without inflammation, no cervical lymphadenopathy Neck: Supple, no masses, short thick neck, no thyromegaly, trachea midline, no carotid bruits or JVD, no supraclavicular lymphadenopathy Cardiac: Regular rate and rhythm, S1-S2, no murmur, no gallops or rubs, 2+ radial pulse, 1+ dorsalis pedis pulse, capillary refill is brisk, no edema Chest: Symmetrical movement, breathing non labored, no cough present, BS equal bilateral without coarseness, crackles or wheezes Abdomen: Soft, obese, no tenderness or guarding on palpation, no masses palpated but exam limited by body habitus, no suprapubic pain, no aortic bruit, BS normal. Back: Normal curvature, no tenderness to palpation, no CVA tenderness on percussion Extremities: Deformity with scarring over the right anterior knee, no erythema or warmth, no synovial effusions, strength 5/5 and symmetrical, ambulates with mechanical assistance Neuro: AAO to person place time and situation cranial nerves II-XII grossly intact, distal sensation intact to light touch, no paresthesias Psych: pleasant, cooperative, thought coherent, stable mood and congruent affect Objective Labs Result Diagrams: 10/05/18 05:27 10/05/18 05:27 Labs: Laboratory Results - last 24 hr 10/04/18 10/04/18 10/04/18 14:10 14:10 14:10 WBC 6.5 RBC 4.33 L Hgb 15.1 Hct 41.9 MCV 96.8 MCH 34.9 H MCHC 36.0 RDW 13.2 Plt Count 180 Neut % (Auto) 70.6 Lymph % (Auto) 16.[address] [place] % (Auto) 9.4 Eos % (Auto) 2.3 Baso % (Auto) 1.0 Neut # (Auto) 4600 Lymph # (Auto) 1100 [place] # (Auto) 600 Eos # (Auto) 200 Baso # (Auto) 100 PT 12.3 INR 1.1 Sodium 121 L Potassium 4.3 Chloride 84 L Carbon Dioxide 26 BUN 11 Creatinine 0.50 L Estimated GFR > 60.0 BUN/Creatinine Ratio 22.0 Glucose 101 Calcium 9.1 Total Bilirubin 2.2 H AST 35 ALT 30 Alkaline Phosphatase 66 Total Creatine Kinase 82 CK-MB (CK-2) TNP CK-MB (CK-2) Rel Index TNP Troponin I < 0.012 B-Natriuretic Peptide Total Protein 7.9 Albumin 4.4 Globulin 3.5 Albumin/Globulin Ratio 1.3 Lipase 81 10/04/18 14:10 WBC RBC Hgb Hct MCV MCH MCHC RDW Plt Count Neut % (Auto) Lymph % (Auto) [place] % (Auto) Eos % (Auto) Baso % (Auto) Neut # (Auto) Lymph # (Auto) [place] # (Auto) Eos # (Auto) Baso # (Auto) PT INR Sodium Potassium Chloride Carbon Dioxide BUN Creatinine Estimated GFR BUN/Creatinine Ratio Glucose Calcium Total Bilirubin AST ALT Alkaline Phosphatase Total Creatine Kinase CK-MB (CK-2) CK-MB (CK-2) Rel Index Troponin I B-Natriuretic Peptide 155 H Total Protein Albumin Globulin Albumin/Globulin Ratio Lipase Assessment & Plan Plan: Assessment/Plan Narrative: This is a 77-year-old male patient to is admitted to the hospital for treatment of acute respiratory failure and hyponatremia. 1. Acute respiratory failure -patient's initial oxygen saturation on arrival in the ER was 89% on room air with respiratory rate of 32. -differential includes: -pneumonia however the patient has a normal white count and is afebrile, procalcitonin is pending -viral illness a respiratory panel is ordered -congestive heart failure, BNP is 155 however the patient has gained 20 lb in 6-8 weeks with lower extremity edema -30-45 pack year history of smoking, likely component of COPD -a dose of Lasix is given and will continue with Lasix 20 mg b.i.d. -patient improved with nebulizer treatment will continue DuoNeb related to smoking history -respiratory therapy to consult -oxygen to maintain saturation greater than 92% 2. Hyponatremia, acute -patient has been on meloxicam, and states associated with hyponatremia medication is held, Tylenol morphine are available for pain management -may have delusional component, patient has gained 20 lb and has peripheral edema. Patient is given a dose of Lasix with Lasix b.i.d. will track sodium level to ascertain response -will monitor cognitive status and hemodynamic stability 3. ETOH abuse, chronic, active -patient with height risk for withdrawal symptoms 36 hr post last drink. -implement CIWA protocol and monitoring q.8 hours -will add multivitamin, thiamine, folate to the patient's medication regimen -seizure precautions -counseling and education on alcohol abuse 4. 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 Atrial fibrillation, chronic, stable -regular rhythm on exam, no complaints of palpitations -12 lead EKG demonstrates irregular supraventricular rhythm however P waves cannot be visualized -will continue atenolol 50 mg daily -patient is on no anticoagulation The patient is admitted to the hospital inpatient status due to the severity of illness and the high risk for potential complications. The expected length of stay is expected to be greater than 2 midnights. Quality VTE Deep Vein Thrombosis/Pulmonary Embolism Present on Admission: No
[2018-10-05] MEDS: PANTOPRAZOLE 20 MG TABLET PO (05:49)
[2018-10-05 06:04] LABS: Add Manual Diff / Slide Review NO; Basophils Absolute Auto 0 /uL (0-100); Basophils Percent Auto 0.7 % (0-2); Eosinophils Absolute Auto 100 /uL (0-450); Eosinophils Percent Auto 2.3 % (2-4); Hematocrit 41.4 % (41-53); Hemoglobin 14.5 g/dL (13.5-17.5); Lymphocytes Absolute Auto 1200 /uL (1100-4500); Lymphocytes Percent Auto 19.4 % (25-40); Mean Corpuscular Hemoglobin 34.5 PG (26-34); Mean Corpuscular Volume 98.5 fL (80-100); Monocytes Absolute Auto 600 /uL (0-900); Monocytes Percent Auto 10.1 % (3-14); Neutrophils Absolute Auto 4000 /uL (1500-7000); Neutrophils Percent Auto 67.5 % (50-75); Platelet Count 164 X10^3/uL (150-400); Red Cell Distribution Width 13.3 % (11.6-14.8)
[2018-10-05 06:09] LABS: Blood Urea Nitrogen 12 mg/dL (9-20); Carbon Dioxide 30 mmol/L (22-32); Chloride 87 mmol/L (98-107); Estimated Glomerular Filt Rate > 60.0 mL/min (>60); Glucose 100 mg/dL (80-110); HEMOLYSIS < 15 (0-50); Potassium 3.9 mmol/L (3.4-5.1); Sodium 126 mmol/L (137-145)
[2018-10-05 06:10] LABS: Cholesterol 124 mg/dL (140-199); HDL Cholesterol 85 mg/dL (40-60); LDL Cholesterol Calculated 30 mg/dL (<100); Magnesium 1.6 mg/dL (1.6-2.3); Triglycerides 45 mg/dL (35-150)
[2018-10-05 06:34] LABS: Troponin I < 0.012 ng/mL (0.01-0.034)
[2018-10-05 08:17] LABS: Adenovirus Not Detected (Not Detect); Bordetella pertussis Not Detected (Not Detect); Chlamydophila pneumoniae Not Detected (Not Detect); Coronavirus 229E Not Detected (Not Detect); Coronavirus HKU1 Not Detected (Not Detect); Coronavirus NL 63 Not Detected (Not Detect); Coronavirus OC43 Not Detected (Not Detect); Human Metapneumovirus Not Detected (Not Detect); Human Rhinovirus/Enterovirus Not Detected (Not Detect); Influenza A Not Detected (Not Detect); Influenza B Not Detected (Not Detect); Mycoplasma pneumoniae Not Detected (Not Detect); Parainfluenza Virus 1 Not Detected (Not Detect); Parainfluenza Virus 2 Not Detected (Not Detect); Parainfluenza Virus 3 Not Detected (Not Detect); Parainfluenza Virus 4 Not Detected (Not Detect); Respiratory Syncytial Virus Not Detected (Not Detect)
--- NOTE | 2018-10-05 08:30 | PC.NURSE ---
Pt's CIWA score O. Pt voiding per urinal, he denies pain. Up with one person assist to ambulate as he does have some weakness. R.lower extremity with 2+edema. Pt has had 17 surgeries to r.knee and pts leg has 3+ edema to that extremity. He is able to stand and has ambulated to the chair. He does deny pain at this time. Reading the newspaper and watching television. Pt is hard of hearing.
[2018-10-05] MEDS: cephALEXin 250 MG CAPSULE 500 MG PO (09:40)
[2018-10-05] MEDS: MULTIVITAMIN 1 TABLET 1 TAB PO (09:41)
[2018-10-05] MEDS: ATENOLOL 50 MG TABLET PO (09:41)
[2018-10-05] MEDS: DOCUSATE 100 MG CAPSULE PO (09:41)
[2018-10-05] MEDS: ENOXAPARIN 40 MG/0.4 ML SYRINGE SUBCUT (09:41)
[2018-10-05] MEDS: LOSARTAN 50 MG TABLET PO (09:41)
[2018-10-05] MEDS: THIAMINE 100 MG TABLET PO (09:41)
[2018-10-05] MEDS: FOLIC ACID 1 MG TABLET PO (09:41)
--- NOTE | 2018-10-05 10:00 | PT.IIE ---
Current Diagnoses Acute respiratory failure, unspecified whether with hypoxia or hypercapnia (10/04/18) Surgical History (Last Reviewed 10/05/18 @ 06:03 by DENISE Frazier) History of right knee joint replacement (Resolved) Medical History (Last Reviewed 10/05/18 @ 06:04 by DENISE Frazier) Alcohol abuse (Acute) Former smoker, stopped smoking in distant past (Acute) 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) Excessive drinking of alcohol (Chronic) Hayfever (Chronic) Morbid obesity (Chronic) Sleep apnea (Chronic) Chicken pox (Resolved ~1947) Measles (Resolved ~1947) Mumps (Resolved ~1948) Osteomyelitis (Resolved) Physical Therapy Inpatient Evaluation/Re-Eval M1 PT/OT-IP Prior Functional Status Start: 10/05/18 11:24 Freq: NEEDED Status: Active Protocol: Document 10/05/18 10:00 AB (Rec: 10/05/18 11:41 AB [id number]) Medical Review Prior Functional Status Medical History Reviewed Yes Communication able to make needs known Mobility and Gait stated that he is independent with all mobilities and ambulation without AD Social History Household Members children Living Arrangements House Number of Floors (Floors) Two Floors Number of Stairs To Enter/Railing? pt stays on main level of the house has 3 steps to enter with 2 bilateral wide rails and can only hold on to one at a time Home Environment Standard Height Toilet Tub/Shower Home Equipment Hand Held Shower Grab Bars In Shower Employment Status Retired Additional Social History Comment pt lives with his daughter; pt has a water bed at home M2 PT-IP Current Condition Start: 10/05/18 11:24 Freq: NEEDED Status: Active Protocol: Document 10/05/18 10:00 AB (Rec: 10/05/18 11:41 AB [id number]) Physical Therapy Current Condition Current Condition Evaluation Date 10/05/18 Treatment Diagnosis acute respiratory failure; hyponatremia; generalized weakness Onset Date 10/04/18 Precautions Other Precautions O2 sat M3 PT-IP Subjective Start: 10/05/18 11:24 Freq: NEEDED Status: Active Protocol: Document 10/05/18 10:00 AB (Rec: 10/05/18 11:41 AB [id number]) Subjective Physical Therapy Visit Type Type Initial Evaluation Visit Start Time 10:00 Visit Stop Time 10:16 Total Visit Minutes 16 Number of [employer]ATOR [employer] SUPERVISOR Visits 0 Physical Therapy Visit Comments Patient Comments pt agreeable to do therapy Therapy Pain Assessment Pain Present Pain Present Denied Pain M4 PT-IP Mobility and Gait Start: 10/05/18 11:24 Freq: NEEDED Status: Active Protocol: Document 10/05/18 10:00 AB (Rec: 10/05/18 11:41 AB [id number]) PT-Transfer Assessment Sit to and From Stand Sit to and from Stand Standby Assistance Equipment Transfer Assistive Device None Orthotic/Prosthetic Devices or Brace: No Transfers Transfer Destination Chair Transfer Technique pt ambulated to the chair Transfer Ability Level of Assist Standby Assistance Comments Mobility Comments pt refused to do bed mobility. pt stated that he has a water bed at home and just rolls in his bed to get in and out and cannot do that on the hospital bed. O2 sat at rest with O2: 93-94% O2 sat after transfer to the chair ambulated from bed without AD ~ 15 ft: 91% O2 sat after ambulation ~ 40 ft without AD: 87% but increased to 92% in less than 10 sec. Gait Assessment Gait Gait Assistance Required: Standby Assistance Distance (Feet) 40 Able to Maintain Weight Bearing Status Yes During Gait Assistive Devices Assistive Device None Gait Belt Orthotic/Prosthetic Devices or Brace: No Gait Deviations General Gait Pattern Antalgic Decreased Stride Length Decreased Feet Clearance Factors Limiting Gait Function Factors Limiting Gait Function Decreased Activity Tolerance Decreased Strength Comments Gait Comments pt comopleted ambulation in room without AD ~ 40 ft. pt with antalgic gait and tends to hold on to the bed/counter for support. PT-Balance Assessment Sitting Balance and Reactions Static Sitting Balance Ability Good Dynamic Sitting Balance Ability Good Standing Balance and Reactions Static Standing Balance Ability Good Dynamic Standing Balance Ability Fair Device Used without AD M5 PT-IP Objective Assessments Start: 10/05/18 11:24 Freq: NEEDED Status: Active Protocol: Document 10/05/18 10:00 AB (Rec: 10/05/18 11:41 AB [id number]) Orientation Orientation/Cognition Level of Alertness Alert Orientation Name Age Birthday Month Date Year Day of Week Place Situation Language Function Ability No Deficits Noted Safety Awareness Understands Safety Issues Memory Description No Deficits Noted Gross Range of Motion Lower Extremity ROM Assessment Within Functional Limits Coordination Assessment Gross Coordination Gross Coordination WNL Muscle Tone Muscle Tone WNL Yes M6 PT-IP Treatment Start: 10/05/18 11:24 Freq: NEEDED Status: Active Protocol: Document 10/05/18 10:00 AB (Rec: 10/05/18 11:41 AB [id number]) Physical Therapy Treatment Education Education Provided Safety M7 PT-IP Assessment and Plan Start: 10/05/18 11:24 Freq: NEEDED Status: Active Protocol: Document 10/05/18 10:00 AB (Rec: 10/05/18 11:41 AB [id number]) PT Summary Assessment and Plan Potential Rehabilitation Potential Good Status of Condition at Evaluation Stable Summary Impairments Bed Mobility Transfers Gait Activity Tolerance Assessment Summary pt requiring SBA with mobility and plans to go home with her daughter to assist him. stair climbing will be conducted prior to d/c home. Goals Bed Mobility Goal Independent Transfer Goal Independent Gait Goal Independent Gait Distance 150 Other Goals up/down 3 steps with 1 rail Days to Meet Goals 5 Frequency of Treatment Frequency Of Treatment Once a Day Treatment Plan Physical Therapy Treatment Plan Bed Mobility Training Transfer Training Gait Training Therapeutic Exercise Balance Retraining Discharge Planning Hot or Cold Pack Neuromuscular Re-ed Coordination Retraining Manual Therapy Other Recommendations and Next Treatment ambulation long distance Focus Recommendations To Nursing Amount of Assist Needed Standby Assistance Discharge Recommendations PT Discharge Recommendations Home with Assistance
--- NOTE | 2018-10-05 16:00 | CM.DPNOTE ---
DCP/continued: Patient currently on CIWA protocol. Patient denied any issues related to drinking during visit. CM team to follow closely. Daughter was present at time of visit. May need to revisit prior to d/c if patient shows active signs of detox. Discharge Planning/Care Management CM Discharge Assessment Start: 10/05/18 15:42 Freq: Status: Active Protocol: Document 10/05/18 15:42 KJS (Rec: 10/05/18 15:52 KJS [id number]) Discharge Planning Assessment Assigned Medication Tech WES Calderón Contact Information Randy (daughter) Advance Directives? No History Provided By Patient Family Member Prior Living Arrangements House Household Members children Type of transporation used prior to Drives own vehicle admit Independent with ADL's Yes Is patient alert and oriented? Yes Caregiver for Another No DME Already Rented / Owned FWW / Walker Cane Patient/Family Preference OP PT Therapy OP OT Therapy Barriers to Discharge No Discharge Plan Home Whiteboard Updated in Patient Room with Yes name and ext. # of Medication Tech Comment Reviewed chart. Patient is a 77yr old male admitted [facility]/cough. PCP is Dr. Gonzalez (appointment scheduled for 11-12-18). Primary payor is 1)Medicare 2)[facility]. Met with patient explained CM/ SW role. Patient's daughter/ Hawa at bedside. Patient reports that he is very I at baseline. Patient has both cane and walker but does not use. Daughter confirms patient 's I and reports that he is out and about on daily basis. PT/OT evaluations ordered today. If therapy recommended after hospitalization,patient and daughter requesting that it be outpatient. Patient denies being homebound and simply explains that he has no plans to be. Left daughter's name/number on whiteboard if anything needed . Daughter hopeful that she will speak with MD prior to patient's d/c. Notified patient that he should let MD know of daughter's reqeust otherwise might not get called . Patient agreeable. Also daughter reports that she is here most of the time. She will also notify RN of her request to speak with MD prior to d/c. P: Anticipate home when medically stable. Patient currently does not qualify for because he does not plan to be homebound. If rehab needed outpatient most appropriate. CM team to continue to follow. Review Status In Process Please Provide Date Initial DC 10/05/18 Assessment Was Performed Next Review Type Continued Stay Review Document 10/05/18 15:59 KJS (Rec: 10/05/18 15:59 KJS [id number]) Discharge Planning Assessment Assigned Medication Tech WES Calderón Contact Information Randy (daughter) Advance Directives? No History Provided By Patient Family Member Prior Living Arrangements House Household Members children Type of transporation used prior to Drives own vehicle admit Independent with ADL's Yes Is patient alert and oriented? Yes Caregiver for Another No DME Already Rented / Owned FWW / Walker Cane Patient/Family Preference OP PT Therapy OP OT Therapy Barriers to Discharge No Discharge Plan Home Whiteboard Updated in Patient Room with Yes name and ext. # of Medication Tech Comment Reviewed chart. Patient is a 77yr old male admitted to [facility] for [facility]B/cough. PCP is Dr. Gonzalez (appointment scheduled for 11-12-18). Primary payor is 1)Medicare 2)[facility]. Met with patient explained CM/ SW role. Patient's daughter/ Hawa at bedside. Patient reports that he is very I at baseline. Patient has both cane and walker but does not use. Daughter confirms patient 's I and reports that he is out and about on daily basis. PT/OT evaluations ordered today. If therapy recommended after hospitalization,patient and daughter requesting that it be outpatient. Patient denies being homebound and simply explains that he has no plans to be. Left daughter's name/number on whiteboard if anything needed . Daughter hopeful that she will speak with MD prior to patient's d/c. Notified patient that he should let MD know of daughter's reqeust otherwise might not get called . Patient agreeable. Also daughter reports that she is here most of the time. She will also notify RN of her request to speak with MD prior to d/c. P: Anticipate home when medically stable. Patient currently does not qualify for HH because he does not plan to be homebound. If rehab needed outpatient most appropriate. CM team to continue to follow. Review Status In Process Please Provide Date Initial DC 10/05/18 Assessment Was Performed Next Review Type Continued Stay Review
[2018-10-05] MEDS: ATORVASTATIN 10 MG TABLET PO (20:36)
[2018-10-05] MEDS: LORATADINE 10 MG TABLET PO (20:37)
[2018-10-05] MEDS: PSEUDOEPHEDRINE 30 MG TABLET PO (20:40)
[2018-10-06] VITALS (11 sets, daily range): BP systolic 111–148; BP diastolic 54–76; PULSE 63–86; RESP 16–20; TEMP 36.3–36.6; O2SAT 91–96
[2018-10-06 06:29] LABS: Add Manual Diff / Slide Review NO; Basophils Absolute Auto 0 /uL (0-100); Basophils Percent Auto 0.6 % (0-2); Eosinophils Absolute Auto 200 /uL (0-450); Eosinophils Percent Auto 2.9 % (2-4); Hematocrit 42.4 % (41-53); Hemoglobin 14.6 g/dL (13.5-17.5); Lymphocytes Absolute Auto 900 /uL (1100-4500); Mean Corpuscular HGB Conc 34.5 % (30-36); Mean Corpuscular Hemoglobin 34.6 PG (26-34); Mean Corpuscular Volume 100.4 fL (80-100); Monocytes Absolute Auto 700 /uL (0-900); Monocytes Percent Auto 10.9 % (3-14); Neutrophils Absolute Auto 4800 /uL (1500-7000); Neutrophils Percent Auto 71.6 % (50-75); Platelet Count 154 X10^3/uL (150-400); Red Blood Cell Count 4.22 X10^6/uL (4.5-5.9); Red Cell Distribution Width 13.5 % (11.6-14.8); White Blood Cell Count 6.8 X10^3/uL (4.5-11.0)
[2018-10-06 07:00] LABS: Blood Urea Nitrogen 14 mg/dL (9-20); Calcium 9.1 mg/dL (8.4-10.2); Carbon Dioxide 32 mmol/L (22-32); Chloride 88 mmol/L (98-107); Estimated Glomerular Filt Rate > 60.0 mL/min (>60); Glucose 108 mg/dL (80-110); HEMOLYSIS < 15 (0-50); Potassium 3.8 mmol/L (3.4-5.1); Sodium 128 mmol/L (137-145)
[2018-10-06] MEDS: PANTOPRAZOLE 20 MG TABLET PO (08:11)
[2018-10-06] MEDS: LOSARTAN 50 MG TABLET PO (08:16)
[2018-10-06] MEDS: THIAMINE 100 MG TABLET PO (08:17)
[2018-10-06] MEDS: cephALEXin 250 MG CAPSULE 500 MG PO (08:17)
[2018-10-06] MEDS: ENOXAPARIN 40 MG/0.4 ML SYRINGE SUBCUT (08:17)
[2018-10-06] MEDS: ATENOLOL 50 MG TABLET PO (08:17)
[2018-10-06] MEDS: MULTIVITAMIN 1 TABLET 1 TAB PO (08:17)
[2018-10-06] MEDS: FOLIC ACID 1 MG TABLET PO (08:17)
[2018-10-06] MEDS: FUROSEMIDE 40 MG/4 ML VIAL 20 MG IV ×2 (08:18→22:05)
[2018-10-06] MEDS: SODIUM CHLORIDE 0.9% FLUSH 10 ML IV ×2 (08:18→22:06)
--- NOTE | 2018-10-06 17:00 | PT.IPTN ---
Current Diagnoses Acute respiratory failure, unspecified whether with hypoxia or hypercapnia (10/04/18) Physical Therapy Treatment Note M2 PT-IP Current Condition Start: 10/05/18 11:24 Freq: NEEDED Status: Active Protocol: Document 10/05/18 10:00 AB (Rec: 10/05/18 11:41 AB [id number]) Physical Therapy Current Condition Current Condition Evaluation Date 10/05/18 Treatment Diagnosis acute respiratory failure; hyponatremia; generalized weakness Onset Date 10/04/18 Precautions Other Precautions O2 sat M3 PT-IP Subjective Start: 10/05/18 11:24 Freq: NEEDED Status: Active Protocol: Document 10/06/18 16:48 SA (Rec: 10/06/18 17:00 SA [id number]) Subjective Physical Therapy Visit Type Type Treatment Note Visit Start Time 13:51 Visit Stop Time 14:15 Total Visit Minutes 24 Number of BLOW PIT OPERATOR Visits 1 Physical Therapy Visit Comments Patient Comments Pt up in chair and just finished lunch, agreeable to PT. Therapy Pain Assessment Pain When Pain Assessed At Rest Pain Present Pain Present Denied Pain M4 PT-IP Mobility and Gait Start: 10/05/18 11:24 Freq: NEEDED Status: Active Protocol: Document 10/06/18 16:48 SA (Rec: 10/06/18 17:00 SA [id number]) PT-Transfer Assessment Sit to and From Stand Sit to and from Stand Standby Assistance Equipment Transfer Assistive Device None Orthotic/Prosthetic Devices or Brace: No Transfers Transfer Destination Bed Chair Transfer Technique Stand Step Pivot Transfer Ability Level of Assist Standby Assistance Comments Mobility Comments Pt did not use AD in room and was SBA with mobility tasks, declined bed mobility. Cues for safety with transfrs, pt tends to use bed rail, table ect for support. Gait Assessment Gait Gait Assistance Required: Standby Assistance Distance (Feet) 125 Able to Maintain Weight Bearing Status Yes During Gait Assistive Devices Assistive Device Gait Belt Front Wheeled Walker Orthotic/Prosthetic Devices or Brace: No Gait Deviations General Gait Pattern Antalgic Decreased Stride Length Decreased Feet Clearance Factors Limiting Gait Function Factors Limiting Gait Function Decreased Activity Tolerance Decreased Strength Comments Gait Comments Pt admits that he does use FWW when his knee is hurting him and was agreable to use FWW for longer distance walking in halls. Demonstrates antalgic gait would be more safe with continued use of FWW with longer distances. Stair Climbing Assessment Comments Stair Climbing Comments Pt states he has no stairs at home. M5 PT-IP Objective Assessments Start: 10/05/18 11:24 Freq: NEEDED Status: Active Protocol: Document 10/05/18 10:00 AB (Rec: 10/05/18 11:41 AB [id number]) Orientation Orientation/Cognition Level of Alertness Alert Orientation Name Age Birthday Month Date Year Day of Week Place Situation Language Function Ability No Deficits Noted Safety Awareness Understands Safety Issues Memory Description No Deficits Noted Gross Range of Motion Lower Extremity ROM Assessment Within Functional Limits Coordination Assessment Gross Coordination Gross Coordination WNL Muscle Tone Muscle Tone WNL Yes M6 PT-IP Treatment Start: 10/05/18 11:24 Freq: NEEDED Status: Active Protocol: Document 10/06/18 16:48 SA (Rec: 10/06/18 17:00 SA [id number]) Physical Therapy Treatment Exercises Exercises Ankle Pumps Seated Knee Flexion/Extension Education Education Provided Safety M7 PT-IP Assessment and Plan Start: 10/05/18 11:24 Freq: NEEDED Status: Active Protocol: Document 10/06/18 16:48 SA (Rec: 10/06/18 17:00 SA [id number]) PT Summary Assessment and Plan Potential Rehabilitation Potential Good Summary Assessment Summary Pt inconsistent with reporting on situation at home. Need to address stairs prior to d/c. Encourage use of FWW for longer distances as pt R knee sometimes deidra. Frequency of Treatment Frequency Of Treatment Once a Day Recommendations To Nursing Amount of Assist Needed Standby Assistance Discharge Recommendations PT Discharge Recommendations Home with Assistance
[2018-10-06] MEDS: ALBUTEROL/IPRATROPIUM 3 ML AMPUL INH (19:34)
[2018-10-06] MEDS: ATORVASTATIN 10 MG TABLET PO (22:05)
[2018-10-06] MEDS: LORATADINE 10 MG TABLET PO (22:06)
--- NOTE | 2018-10-06 22:47 | P.PN_ITS ---
Subjective Date Patient Seen: 10/06/18 Interval history: Domingo Lu is a 77-year-old male patient with a past medical history significant for hypertension, chronic atrial fibrillation, 30-45 pack year smoker, osteomyelitis right knee, alcohol abuse, sleep apnea, morbid obesity who presented for increasing shortness of breath over the last few days. The patient reports his breathing feels much improved. He is sitting in bedside chair comfortably. Discussed his echocardiogram findings today in detail and the contributory factors including alcohol abuse, hypertension, and possible obstructive sleep apnea. The patient reports that he does not believe he could quit drinking completely but thinks he could possibly cut back. We also discussed atrial fibrillation and need for anticoagulation, at least aspirin 81 mg daily. He denies headache, chest pain, shortness of breath, abdominal pain, nausea, vomiting, fever, chills, dysuria, diarrhea and constipation. He is voiding without difficulty. He has not had a bowel movement since admission. He is ambulating independently but reports he becomes short of breath very easily. Exam Vital Signs (past 8 hours): - 10/06/18 16:37 10/06/18 19:34 10/06/18 20:23 Temperature 97.4 F L 97.4 F L Pulse Rate 74 63 72 Respiratory Rate 16 20 20 Blood Pressure 111/60 124/54 L Pulse Oximetry 94 91 94 Oxygen Delivery Method Room Air Oxygen Flow Rate 0 Narrative Exam Narrative: General: Elderly gentleman sitting in bedside chair and in no acute distress, appears chronically ill, well-developed, well-nourished, appropriately interactive. HEENT: Normocephalic, atraumatic. External ears without defect. Pupils equal, round, and reactive to light. Anicteric sclerae, moist conjunctivae, and no lid lag. Neck: Supple with full range of motion. Jugular venous distension. No lymphadenopathy or thyromegaly. Cardiovascular: Irregularly irregular without murmurs, rubs, or gallops appreciated Pulmonary: Clear to auscultation bilaterally with fine bibasilar crackles. No wheezes, or rhonchi. Normal respiratory effort with no use of accessory muscles. Abdomen: Soft, bowel sounds present, nontender, nondistended. No hepatosplenomegaly or masses appreciated. Extremities: No clubbing or cyanosis. Bilateral lower extremity pitting edema to pretibial area bilaterally. Large vertical scars on both knees with full area on right lower extremity possibly venous insufficiency versus some other process. Skin: Normal temperature, turgor, and texture; no rash, ulcers, or subcutaneous nodules appreciated. Neurological: Cranial nerves grossly intact. Psychiatric: Normal mood and affect. Alert and oriented to person, place, and time. Objective Labs Result Diagrams: 10/06/18 05:07 10/06/18 05:07 Labs: Laboratory Results - last 24 hr 10/06/18 10/06/18 05:07 05:07 WBC 6.8 RBC 4.22 L Hgb 14.6 Hct 42.4 MCV 100.4 H MCH 34.6 H MCHC 34.5 RDW 13.5 Plt Count 154 Neut % (Auto) 71.6 Lymph % (Auto) 14.0 L [place] % (Auto) 10.9 Eos % (Auto) 2.9 Baso % (Auto) 0.6 Neut # (Auto) 4800 Lymph # (Auto) 900 L [place] # (Auto) 700 Eos # (Auto) 200 Baso # (Auto) 0 Sodium 128 L Potassium 3.8 Chloride 88 L Carbon Dioxide 32 BUN 14 Creatinine 0.70 Estimated GFR > 60.0 BUN/Creatinine Ratio 20.0 Glucose 108 Calcium 9.1 Assessment & Plan Assessment Narrative: Domingo Lu is a 77-year-old male patient with a past medical history significant for hypertension, chronic atrial fibrillation, 30-45 pack year smoker, osteomyelitis right knee, alcohol abuse, sleep apnea, morbid obesity who presented for increasing shortness of breath over the last few days. 1. New onset systolic CHF, acute, present on admission. Active. -Patient's initial oxygen saturation on arrival in the ER was 89% on room air with respiratory rate of 32 not artist's representative of hypoxemic respiratory failure but rather CHF exacerbation. -Normal WBC. Afebrile. Viral respiratory PCR negative. Procalcitonin 2.6 but has chronic osteomyelitis on Keflex. -BNP is 155 and patient reports he has gained 20 lb in 6-8 weeks with lower extremity edema. -Received Lasix 40 mg IV x1 in ED. Continued Lasix 20 mg IV twice daily. Plan to start p.o. Lasix 60 mg daily tomorrow. -Patient improved with nebulizer treatment and will continue DuoNeb for smoking history and likely COPD. Consulted respiratory therapy for evaluation and treatment. Goal oxygen saturation greater than 88%. -Echocardiogram demonstrated mild systolic CHF with EF 50-55% in bilateral severely dilated atria and possible dilated cardiomyopathy. 2. Hyponatremia, acuity unclear, present on admission. Resolving. -Likely secondary to chronic alcohol abuse and possibly hypervolemic hyponatremia due to CHF. -Initial sodium 121. Sodium 128 today. Improving with diuresis and abstinence from alcohol. 3. Alcohol abuse, chronic, present on admission. Stable. -Patient with high risk for withdrawal symptoms. Last drink 36 hr prior to admission. -Continue CIWA protocol. -Continue multivitamin, thiamine, and folate. -Counseled and educated the patient on alcohol abuse and secondary complications. The patient does not believe he can abstain from alcohol completely but may be able to cut back. 4. Osteomyelitis, chronic, present on admission. Stable. 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 -Patient on chronic cephalexin 500 mg daily as home medication for probable prophylaxis vs treatment? -Patient with activity intolerance due to knee pain, using a crutch to ambulate, limited to approximately 300 ft -Consulted PT and OT for evaluation and treatment. 5. Atrial fibrillation, chronic, present on admission. Stable. -12 lead EKG demonstrates irregular supraventricular rhythm however P waves cannot be visualized. -Continue atenolol 50 mg daily. -Patient is not on anticoagulation and discussed this in depth. Patient would benefit from aspirin 81 mg daily. Continue to discuss anticoagulation and initiation. 6. Hyperlipidemia, chronic, present on admission. Stable. -Continue atorvastatin 10 mg daily at bedtime. CTA demonstrated coronary as throw sclerosis and should consider increasing to 40 mg daily at bedtime. Disposition: Likely discharge home possibly with home health in 1-2 days depending upon improvement in symptoms with treatment of CHF. Consider anticoagulation or aspirin prior to discharge for chronic atrial fibrillation. Quality VTE Deep Vein Thrombosis/Pulmonary Embolism Present on Admission: No
--- NOTE | 2018-10-06 23:03 | PC.NURSE ---
Seizure percautions discontinued, pads removed from bed.
[2018-10-07] VITALS (7 sets, daily range): BP systolic 109–152; BP diastolic 50–72; PULSE 67–102; RESP 16–24; TEMP 36.2–36.5; O2SAT 91–96
[2018-10-07] MEDS: PANTOPRAZOLE 20 MG TABLET PO (05:33)
[2018-10-07 06:02] LABS: Alanine Aminotransferase 33 IU/L (21-72); Albumin Globulin Ratio 1.3 (1.0-2.8); Alkaline Phosphatase 61 U/L (38-126); Aspartate Aminotransferase 32 IU/L (17-59); BUN Creatinine Ratio 25.7 (6-22); Bilirubin Total 1.4 mg/dL (0.2-1.3); Blood Urea Nitrogen 18 mg/dL (9-20); Carbon Dioxide 32 mmol/L (22-32); Chloride 88 mmol/L (98-107); Estimated Glomerular Filt Rate > 60.0 mL/min (>60); Globulin 3.2 g/dL (1.7-4.1); Glucose 104 mg/dL (80-110); HEMOLYSIS < 15 (0-50); Magnesium 1.7 mg/dL (1.6-2.3); Potassium 3.6 mmol/L (3.4-5.1); Sodium 129 mmol/L (137-145); Total Protein 7.2 g/dL (6.3-8.2)
[2018-10-07 06:04] LABS: Add Manual Diff / Slide Review NO; Basophils Absolute Auto 0 /uL (0-100); Basophils Percent Auto 0.9 % (0-2); Eosinophils Absolute Auto 200 /uL (0-450); Eosinophils Percent Auto 3.9 % (2-4); Hematocrit 40.8 % (41-53); Hemoglobin 14.2 g/dL (13.5-17.5); Lymphocytes Absolute Auto 1100 /uL (1100-4500); Lymphocytes Percent Auto 19.8 % (25-40); Mean Corpuscular HGB Conc 34.9 % (30-36); Mean Corpuscular Hemoglobin 34.4 PG (26-34); Mean Corpuscular Volume 98.6 fL (80-100); Monocytes Absolute Auto 600 /uL (0-900); Monocytes Percent Auto 11.5 % (3-14); Neutrophils Absolute Auto 3500 /uL (1500-7000); Neutrophils Percent Auto 63.9 % (50-75); Platelet Count 156 X10^3/uL (150-400); Red Blood Cell Count 4.14 X10^6/uL (4.5-5.9); Red Cell Distribution Width 13.4 % (11.6-14.8); White Blood Cell Count 5.5 X10^3/uL (4.5-11.0)
--- NOTE | 2018-10-07 09:54 | PT.IPTN ---
Current Diagnoses Acute respiratory failure, unspecified whether with hypoxia or hypercapnia (10/04/18) Physical Therapy Treatment Note M2 PT-IP Current Condition Start: 10/05/18 11:24 Freq: NEEDED Status: Active Protocol: Document 10/05/18 10:00 AB (Rec: 10/05/18 11:41 AB [id number]) Physical Therapy Current Condition Current Condition Evaluation Date 10/05/18 Treatment Diagnosis acute respiratory failure; hyponatremia; generalized weakness Onset Date 10/04/18 Precautions Other Precautions O2 sat M3 PT-IP Subjective Start: 10/05/18 11:24 Freq: NEEDED Status: Active Protocol: Document 10/07/18 09:47 SA (Rec: 10/07/18 09:54 SA [id number]) Subjective Physical Therapy Visit Type Type Treatment Note Visit Start Time 09:10 Visit Stop Time 09:28 Total Visit Minutes 18 Number of TOP INSTALLER Visits 2 Physical Therapy Visit Comments Patient Comments Pt seated up in chair and agreeable to PT this AM. Therapy Pain Assessment Pain When Pain Assessed At Rest Pain Present Pain Present Denied Pain M4 PT-IP Mobility and Gait Start: 10/05/18 11:24 Freq: NEEDED Status: Active Protocol: Document 10/07/18 09:47 SA (Rec: 10/07/18 09:54 SA [id number]) PT-Transfer Assessment Sit to and From Stand Sit to and from Stand Standby Assistance Equipment Transfer Assistive Device None Orthotic/Prosthetic Devices or Brace: No Transfers Transfer Destination Bed Chair Transfer Technique Stand Step Pivot Transfer Ability Level of Assist Standby Assistance Comments Mobility Comments Pt with tendancy to furniture walk in room, uses FWW with cues though. SBA for mobility tasks but safety cues needed. Gait Assessment Gait Gait Assistance Required: Standby Assistance Distance (Feet) 150 Able to Maintain Weight Bearing Status Yes During Gait Assistive Devices Assistive Device Gait Belt Front Wheeled Walker Orthotic/Prosthetic Devices or Brace: No Gait Deviations General Gait Pattern Antalgic Decreased Stride Length Decreased Feet Clearance Factors Limiting Gait Function Factors Limiting Gait Function Decreased Activity Tolerance Decreased Strength Comments Gait Comments 02 sats 89-94% with ambulation in halls. Cues for upright posture and SBA with FWW. Stair Climbing Assessment Evaluation Level of Assist On Stairs Contact Guard Assistance 1 Person Assistance Devices Stair Climbing Assistive Devices Left Railing Right Railing Technique/Endurance Stair Climbing Direction Ascend and Descend Stair Climbing Technique Step to Step Number of Steps Climbed 3 Query Text: Stair Climbing Set # Repetitions (reps) 2 Comments Stair Climbing Comments PT wit CGA and step to gait pattern, mod cues for safety and use of B rails. Pt has 5 stairs at home to enter. M5 PT-IP Objective Assessments Start: 10/05/18 11:24 Freq: NEEDED Status: Active Protocol: Document 10/05/18 10:00 AB (Rec: 10/05/18 11:41 AB [id number]) Orientation Orientation/Cognition Level of Alertness Alert Orientation Name Age Birthday Month Date Year Day of Week Place Situation Language Function Ability No Deficits Noted Safety Awareness Understands Safety Issues Memory Description No Deficits Noted Gross Range of Motion Lower Extremity ROM Assessment Within Functional Limits Coordination Assessment Gross Coordination Gross Coordination WNL Muscle Tone Muscle Tone WNL Yes M6 PT-IP Treatment Start: 10/05/18 11:24 Freq: NEEDED Status: Active Protocol: Document 10/07/18 09:47 (Rec: 10/07/18 09:54 [id number]) Physical Therapy Treatment Exercises Exercises Ankle Pumps Seated Knee Flexion/Extension Education Education Provided Safety M7 PT-IP Assessment and Plan Start: 10/05/18 11:24 Freq: NEEDED Status: Active Protocol: Document 10/07/18 09:47 (Rec: 10/07/18 09:54 [id number]) PT Summary Assessment and Plan Potential Rehabilitation Potential Good Summary Assessment Summary Pt able to manage stairs and increasing ambulation distance with maintaining 02 levels on RA. Needs cues for breathing as he tends to hold breath occasionally. Frequency of Treatment Frequency Of Treatment Once a Day Recommendations To Nursing Amount of Assist Needed Standby Assistance Discharge Recommendations PT Discharge Recommendations Home with Assistance
[2018-10-07] MEDS: ATENOLOL 50 MG TABLET PO (10:06)
[2018-10-07] MEDS: ENOXAPARIN 40 MG/0.4 ML SYRINGE SUBCUT (10:07)
[2018-10-07] MEDS: cephALEXin 250 MG CAPSULE 500 MG PO (10:07)
[2018-10-07] MEDS: ALBUTEROL/IPRATROPIUM 3 ML AMPUL INH (10:08)
[2018-10-07] MEDS: FOLIC ACID 1 MG TABLET PO (10:08)
[2018-10-07] MEDS: FUROSEMIDE 20 MG TABLET 60 MG PO (10:08)
[2018-10-07] MEDS: MULTIVITAMIN 1 TABLET 1 TAB PO (10:09)
[2018-10-07] MEDS: LOSARTAN 50 MG TABLET PO (10:09)
[2018-10-07] MEDS: SODIUM CHLORIDE 0.9% FLUSH 10 ML IV (10:10)
[2018-10-07] MEDS: THIAMINE 100 MG TABLET PO (10:10)
[2018-10-07] MEDS: MAGNESIUM HYDROXIDE 30 ML UDC PO (13:37)
[2018-10-07] MEDS: MAGNESIUM SULFATE 2 GM/50 ML PIGGYBACK IV (13:37)
[2018-10-07] MEDS: SODIUM CHLORIDE 0.9% 250 ML 21 ML IV (13:38)
--- NOTE | 2018-10-07 14:44 | CM.DPNOTE ---
Reviewed chart. CIWA is 0. Pt ambulating w/ PT SBA/CGA, therapy team feels pt will be able to safely DC home upon DC. Following in case any DC needs or concerns arise. JW
--- NOTE | 2018-10-07 16:57 | P.DS_ITS ---
History of Present Illness Chief complaint: SOB, cough Narrative: This is a 77-year-old male patient with a history hypertension, atrial fibrillation 30-45 pack year smoker, osteomyelitis right knee, alcohol abuse, sleep apnea, morbid obesity presents to the ER for increasing shortness of breath over the last few days. The patient has had coughing and shortness of breath for 6-8 weeks and has been treated through the walk-in clinic where he has been provided benzonatate and doxycycline without improvement. He reports no chest pain but feels chest tightness with cough. He denies headaches or chest wall pain. The patient shall reports gaining 20 lb over the same 6-8 weeks. Per the daughter the patient has also had increasing confusion and disorientation over the last several weeks. Patient describes cold symptoms at the onset of his cough however head congestion, fevers, chills and runny nose have all ablated. The patient also is reported by the daughter to have profound sleep apnea with the patient stopping breathing at night and will gasp for air and the patient endorses waking gasping short of breath. He has had sleep studies but was intolerant to CPAP. Additionally the patient endorses drinking a 6-8 pack daily with his last drink day before yesterday, approximately 36 hr ago. He denies ever having alcohol withdrawal complications hallucinations or seizures. He denies headaches or dizziness, visual changes but is hard hearing. Denies abdominal pain, nausea vomiting, constipation or diarrhea. He does endorse nocturia ?every hour?. Upon arrival in the ER the patient was found to be afebrile with 989 heart rate is 72 blood pressure of 119/48 however he is in acute respiratory failure with a respiratory rate of 32 and room air saturation of 89%. The patient was evaluated with a chest x-ray which reveals cardiomyopathy and describes pulmonary edema versus atelectasis versus pneumonia. On labs the patient's CBC is unremarkable, on chemistry is hyponatremic with a sodium 121, potassium 4.3 and has a BUN of 11 and creatinine of 0.5. He has a BNP of 155 and a troponin of less than 0.012. Discharge Providers Date of admission: 10/04/18 17:26 Primary care physician: Domingo Gonzalez MD Consults: 10/04/18 22:00 Consult to Discharge Planning Routine Comment: Consult to Physical Therapy Evaluate & Treat Comment: Status post RTKA with revisions, imp amb Physician Instructions: Evaluate and Treat 10/04/18 22:01 Consult to Dietitian, Adult Routine Comment: Reason For Exam: Morbid obesity BMI 49.9 Consult to Respiratory Therapy Evaluate & Treat Comment: oxygen Physician Instructions: Evaluate and treat Discharge provider: Kushal Jimenez MD Discharge Date: 10/07/18 Summary Discharge Diagnosis: 1. Acute systolic and diastolic heart failure 2. Acute hyponatremia 3. Chronic atrial fibrillation 4. Alcohol dependency 5. Obstructive sleep apnea, not using CPAP 6. Severe obesity Procedures: 1. Chest CT without contrast:1. Small right greater than left bilateral pleural effusion with adjacent compressive atelectasis in posterior aspect of bilateral lower lobes. Mild pulmonary edema. No focal infiltrate or pneumothorax. Airway is patent. 2. No mediastinal or hilar lymphadenopathy. Cardiomegaly and coronary artery calcifications. 3. Asymmetrically enlarged left thyroid lobe which may represent nodular goiter. 4. Cholelithiasis, no biliary ductal dilatation. 2. Echo:The left ventricle is normal in size. Left ventricular systolic function is low normal. The ejection fraction is estimated to be 50-55%. There are no obvious focal wall motion abnormalities noted but poor endocardial definition reduces the sensitivity for the detection of such. Diastolic function could not be accurately assessed due to atrial fibrillation. The right ventricle grossly appears normal in size with probable normal systolic function. Right ventricular systolic pressure is estimated to be 37 mmHg plus the clinically estimated CVP which cannot be estimated on this exam. The left atrium is severely dilated. The right atrium is severely dilated. There is no significant valvular heart disease. The aortic root is mildly dilated. Hospital Course: Patient presented quite dyspneic with evidence of pulmonary edema and volume overload. Curiously his BNP was only 155. However, he responded nicely to IV Lasix with improvement of respiratory status to where he feels things are back to normal now. Also was hyponatremic with serum sodium 121 on admission likely combination of his volume status as well as beer and water intake at home. Serum sodium did come up with fluid restriction and IV Lasix to 129 on day of discharge. Echo demonstrated mild systolic CHF with EF 50-55%, bilaterally severely dilated atria, normal LV and RV size, no significant valvular disease, mildly dilated aortic root. For atrial fibrillation he is not on anticoagulation though may benefit from chronic ant icoagulation once he reestablishes with PCP. His rate has been well controlled. He is on chronic daily cephalexin due to history of right knee prosthesis infection. Patient appears back to baseline, walked down the hallway without getting out of breath, and ready to go back home. I am discharging him on oral Lasix and potassium. He has also been counseled to cut back on alcohol intake and also cut back on his water intake. He is awaiting to establish with Dr Gonzalez and has appointment in October but is instructed to move up his appointment to be seen in the next 1-2 weeks for hospital follow-up. He has significant obesity with BMI 47 and prior diagnosis of obstructive sleep apnea. He states he had a sleep study fiber 6 years ago but could not tolerate CPAP. However he is willing to have this re-evaluated as he may tolerate a nasal CPAP or different pressures. He will ask PCP for referral to Sleep Clinic. Status at Discharge Functional status at discharge: independent ambulation Overall status at discharge: patient is back to baseline Time Spent with Patient Greater than 30 minutes Exam Vital Signs (past 8 hours): - 10/07/18 09:05 10/07/18 11:14 10/07/18 11:15 Temperature 97.7 F 97.5 F L Pulse Rate 89 68 68 Respiratory Rate 22 22 18 Blood Pressure 109/54 L 116/58 L 116/50 L Pulse Oximetry 91 91 91 10/07/18 14:55 10/07/18 15:40 10/07/18 16:14 Temperature 97.6 F Pulse Rate 67 74 Respiratory Rate 16 17 Blood Pressure 110/56 L Pulse Oximetry 94 95 94 Oxygen Delivery Method Room Air Oxygen Flow Rate 0 Objective Labs Result Diagrams: 10/07/18 05:25 10/07/18 05:25 Labs: Laboratory Results - last 24 hr 10/07/18 10/07/18 05:25 05:25 WBC 5.5 RBC 4.14 L Hgb 14.2 Hct 40.8 L MCV 98.6 MCH 34.4 H MCHC 34.9 RDW 13.4 Plt Count 156 Neut % (Auto) 63.9 Lymph % (Auto) 19.8 L [place] % (Auto) 11.5 Eos % (Auto) 3.9 Baso % (Auto) 0.9 Neut # (Auto) 3500 Lymph # (Auto) 1100 [place] # (Auto) 600 Eos # (Auto) 200 Baso # (Auto) 0 Sodium 129 L Potassium 3.6 Chloride 88 L Carbon Dioxide 32 BUN 18 Creatinine 0.70 Estimated GFR > 60.0 BUN/Creatinine Ratio 25.7 H Glucose 104 Calcium 9.0 Magnesium 1.7 Total Bilirubin 1.4 H AST 32 ALT 33 Alkaline Phosphatase 61 Total Protein 7.2 Albumin 4.0 Globulin 3.2 Albumin/Globulin Ratio 1.3 Discharge Plan Discharge Plan Patient Disposition: Home Discharge comment: Respiratory Therapy recommends outpatient Pulmonary Function Test. Arrange a referral through your primary care provider. Discharge Med Rec/Prescriptions Prescriptions: New furosemide 40 mg tablet 40 mg PO DAILY Qty: 30 RF: 0 potassium chloride 20 mEq tablet extended release 20 meq PO DAILY Qty: 30 RF: 0 Continued benzonatate 100 mg capsule 100 mg PO BEDTIME Qty: 20 RF: 0 cephalexin 500 mg capsule 500 mg PO DAILY Qty: 40 RF: 0 meloxicam 15 mg tablet 15 mg PO DAILY RF: 0 losartan [Cozaar] 50 mg tablet 50 mg PO DAILY RF: 0 atorvastatin [Lipitor] 10 mg tablet 10 mg PO BEDTIME RF: 0 amlodipine 10 mg tablet 10 mg PO DAILY RF: 0 atenolol 50 mg tablet 50 mg PO DAILY RF: 0 Disabled Parking Permit 1 ea miscellaneous DIRECTED RF: 0 Discontinued doxycycline hyclate 100 mg capsule 100 mg PO BIDX7 RF: 0 No Action omega-3 fatty acids 1 dose PO DAILY RF: 0 methylsulfonylmethane 1 dose PO DAILY RF: 0 Follow up/Referrals: Domingo Gonzalez MD [Primary Care Provider] - 1 Week Provider Discharge Instructions Diet: Diet as Tolerated Visit Report/Discharge Packet Instructions: DI for Heart Failure Discharge Data Primary Care Provider: Domingo Gonzalez Attending Provider: Denita Blunt Admit Date/Time: 10/04/18 17:26 Quality VTE Deep Vein Thrombosis/Pulmonary Embolism Present on Admission: No
--- NOTE | 2018-10-07 19:03 | PC.NURSE ---
Evening shift 1530: Assumed care of pt with safe hand off. Safety checks done. Pt is a/o x4 and denies pain at this time. Wondering if he could go home. 0: Pt walked into wheelchair with [employer]. DC home with daughter via private vehicle by emergency doors.
== END 2018-10-07 18:30 | disposition home or self-care (01) | DRG 292 ==
LOC: ED 17:24 → AC 17:28
PROVIDERS: Nurse Practitioner Adult Health; Admitting Provider Internal Medicine; Emergency Provider Nurse Practitioner Family; Family Provider Family Medicine; PCP Student in an Organized Health Care Education/Training Program; Visit Provider Internal Medicine
DX: I50.21 Acute systolic (congestive) heart failure (principal); E87.1 Hypo-osmolality and hyponatremia; Z68.42 Body mass index [BMI] 45.0-49.9, adult; M86.651 Other chronic osteomyelitis, right thigh; E66.01 Morbid (severe) obesity due to excess calories; I48.2 Chronic atrial fibrillation; Z87.891 Personal history of nicotine dependence; G47.33 Obstructive sleep apnea (adult) (pediatric); F10.10 Alcohol abuse, uncomplicated
CPT/HCPCS: 36415; 36591; 71045; 71250; 80048; 80053; 80061; 81003; 82550; 83690; 83735; 83880; 84145; 84484; 85025; 85610; 87633; 93005; 93306; 94640; 94762; 96374; 97116; 97161; 97530; 99283; 99285; J1650; J1940

== ENCOUNTER → 2018-10-14 13:51 | Outpatient (CLI) | payer MEDICARE, SELFPAY ==
[2018-10-04 18:33] VITALS: BMI 49.8
[2018-10-14 14:25] LABS: Add Manual Diff / Slide Review NO; Basophils Absolute Auto 100 /uL (0-100); Basophils Percent Auto 1.3 % (0-2); Eosinophils Absolute Auto 300 /uL (0-450); Eosinophils Percent Auto 4.5 % (2-4); Hematocrit 44.3 % (41-53); Hemoglobin 15.3 g/dL (13.5-17.5); Lymphocytes Absolute Auto 1200 /uL (1100-4500); Lymphocytes Percent Auto 19.8 % (25-40); Mean Corpuscular HGB Conc 34.6 % (30-36); Mean Corpuscular Hemoglobin 34.5 PG (26-34); Mean Corpuscular Volume 99.5 fL (80-100); Monocytes Absolute Auto 700 /uL (0-900); Monocytes Percent Auto 10.9 % (3-14); Neutrophils Absolute Auto 4000 /uL (1500-7000); Neutrophils Percent Auto 63.5 % (50-75); Platelet Count 200 X10^3/uL (150-400); Red Blood Cell Count 4.45 X10^6/uL (4.5-5.9); Red Cell Distribution Width 13.1 % (11.6-14.8); White Blood Cell Count 6.3 X10^3/uL (4.5-11.0)
[2018-10-14 14:38] LABS: Alanine Aminotransferase 32 IU/L (21-72); Albumin 4.3 g/dL (3.5-5.0); Albumin Globulin Ratio 1.2 (1.0-2.8); Alkaline Phosphatase 59 U/L (38-126); Aspartate Aminotransferase 33 IU/L (17-59); BUN Creatinine Ratio 18.8 (6-22); Bilirubin Direct 0.4 mg/dL (0.0-0.4); Bilirubin Total 1.9 mg/dL (0.2-1.3); Blood Urea Nitrogen 15 mg/dL (9-20); Calcium 9.4 mg/dL (8.4-10.2); Carbon Dioxide 29 mmol/L (22-32); Chloride 97 mmol/L (98-107); Estimated Glomerular Filt Rate > 60.0 mL/min (>60); Globulin 3.6 g/dL (1.7-4.1); Glucose 88 mg/dL (80-110); HEMOLYSIS < 15 (0-50); Potassium 4.3 mmol/L (3.4-5.1); Sodium 136 mmol/L (137-145); Total Protein 7.9 g/dL (6.3-8.2)
[2018-10-14 15:44] LABS: Vitamin D 25 Hydroxy (D3) 24.6 ng/mL (30.0-100.0)
== END ==
PROVIDERS: PCP Student in an Organized Health Care Education/Training Program; Visit Provider Student in an Organized Health Care Education/Training Program
DX: E87.1 Hypo-osmolality and hyponatremia (principal); F10.10 Alcohol abuse, uncomplicated; E55.9 Vitamin D deficiency, unspecified; M86.60 Other chronic osteomyelitis, unspecified site
CPT/HCPCS: 36415; 80053; 82248; 82306; 85025

== ENCOUNTER → 2020-05-17 11:54 | Outpatient (CLI) | payer MEDICARE, SELFPAY ==
[2018-10-04 18:33] VITALS: BMI 49.8
[2020-05-17 13:13] LABS: BUN Creatinine Ratio 21.8 (6-22); Blood Urea Nitrogen 24 mg/dL (9-20); Calcium 9.4 mg/dL (8.4-10.2); Carbon Dioxide 30 mmol/L (22-32); Chloride 102 mmol/L (98-107); Estimated Glomerular Filt Rate > 60.0 mL/min (>60); Glucose 84 mg/dL (80-110); HEMOLYSIS 16 (0-50); Potassium 4.5 mmol/L (3.4-5.1); Sodium 139 mmol/L (137-145)
== END ==
PROVIDERS: PCP Student in an Organized Health Care Education/Training Program; Referring Provider Student in an Organized Health Care Education/Training Program; Visit Provider Student in an Organized Health Care Education/Training Program
DX: Z79.1 Long term (current) use of non-steroidal anti-inflammatories (NSAID) (principal)
CPT/HCPCS: 36415; 80048

== ENCOUNTER → 2021-07-18 14:59 | Outpatient (CLI) | payer MEDICARE, OTHER, SELFPAY ==
[2018-10-04 18:33] VITALS: BMI 49.8
[2021-07-18 16:56] LABS: BUN Creatinine Ratio 21.1 (6-22); Blood Urea Nitrogen 24 mg/dL (9-20); Calcium 9.1 mg/dL (8.4-10.2); Carbon Dioxide 28 mmol/L (22-32); Chloride 101 mmol/L (98-107); Estimated Glomerular Filt Rate > 60.0 mL/min (>60); Glucose 107 mg/dL (80-110); HEMOLYSIS 28 (0-50); Potassium 4.7 mmol/L (3.4-5.1); Sodium 137 mmol/L (137-145)
[2021-07-18 17:26] LABS: Vitamin D 25 Hydroxy (D3) 30.8 ng/mL (30.0-100.0)
== END ==
PROVIDERS: PCP Student in an Organized Health Care Education/Training Program; Referring Provider Student in an Organized Health Care Education/Training Program; Visit Provider Student in an Organized Health Care Education/Training Program
DX: Z79.1 Long term (current) use of non-steroidal anti-inflammatories (NSAID) (principal); E55.9 Vitamin D deficiency, unspecified; E66.01 Morbid (severe) obesity due to excess calories
CPT/HCPCS: 36415; 80048; 82306; 83036

== ENCOUNTER 2021-09-11 14:17 | Emergency (ER) | payer MEDICARE, OTHER, SELFPAY ==
[2018-10-04 18:33] VITALS: BMI 49.8
[2021-09-11] VITALS (7 sets, daily range): BP systolic 114–150; BP diastolic 60–83; PULSE 60–80; RESP 18–20; TEMP 37; O2SAT 94–99; BMI 43.4
--- NOTE | 2021-09-11 17:39 | DI.US.S_ITS ---
PROCEDURE: US SCROTUM INDICATIONS: Right testicular pain TECHNIQUE: Real-time scanning was performed of the scrotum and testicles, with image documentation. Color and pulse Doppler interrogation was performed of both testicles. COMPARISON: [facility], , US SCROTUM, 06/28/2018, 13:11. FINDINGS: Right: Testicle is normal in size at 3.9 x 2.4 x 3.2 cm, and homogenous in echotexture. Edematous appearance of the epididymis with hyperemia and heterogeneous echotexture. Small hydrocele. Hypoechoic lesion in the epididymal head, measuring up to 10.4 mm, most consistent with a cyst or spermatocele. No varicocele. Overlying scrotal skin is thickened. Left: Testicle is normal in size at 3.9 x 2.7 x 2.6 cm, and homogeneous in echotexture. Single micro calculus in the inferior testis, measuring 1.5 mm. Epididymis demonstrates heterogeneous echotexture with normal vascularity. Small hydrocele. No varicocele. Overlying scrotal skin is thickened. Doppler: Color and pulse Doppler demonstrate normal and symmetric arterial flow in both testicles. IMPRESSION: 1. Edematous appearance of the right epididymis, compatible epididymitis. 2. Scrotal wall thickening. 3. Small bilateral hydroceles. Dictated by: Donnell Guerra M.D. on 09/11/2021 at 18:30 Approved by: Donnell Guerra M.D. on 09/11/2021 at 18:39
--- NOTE | 2021-09-11 17:40 | ED_ITS ---
HPI - Male Genitourinary <Darrian Hanson MD - Last Filed: 09/16/21 13:36> General Chief complaint: Urogenital-Male Stated complaint: right testicle going into stomach Time Seen by Provider: 09/11/21 17:19 Source: patient Mode of arrival: Ambulatory History of Present Illness HPI Narrative: Patient here complains 1 week of nontraumatic right testicular pain. No history of hernia. No dysuria hematuria. No nausea or vomiting. Patient radiates superiorly to the abdomen. Right testicle tender to touch. Related Data Home Medications Medication Instructions Recorded Confirmed omega-3 fatty acids [Fish Oil 1 dose PO DAILY 06/10/18 07/18/21 Concentrate] Previous Rx's Medication Instructions Recorded amlodipine 10 mg tablet 10 mg PO DAILY #90 tab 07/18/21 atorvastatin 40 mg tablet 40 mg PO BEDTIME #90 tab 07/18/21 cephalexin 500 mg capsule 500 mg PO DAILY #90 cap 07/18/21 losartan 50 mg tablet (Cozaar) 50 mg PO DAILY #90 tab 07/18/21 meloxicam 15 mg tablet 15 mg PO DAILY #90 tab 07/18/21 atenolol 50 mg tablet 50 mg PO DAILY #90 tab 08/28/21 ciprofloxacin HCl 500 mg tablet 500 mg PO BID #20 tab 09/11/21 Allergies Allergy/AdvReac Type Severity Reaction Status Date / Time No Known Drug Allergies Allergy Verified 09/11/21 14:31 Review of Systems <Darrian Hanson MD - Last Filed: 09/16/21 13:36> Review of Systems Narrative: GENERAL: Denies chills, fatigue, malaise, fever, sweats. HEENT: Denies sinus pain, ear pain, sore throat RESPIRATORY: Denies dyspnea, cough CARDIOVASCULAR: Denies chest pain, palpitations GASTROINTESTINAL: Denies nausea, vomiting, abdominal pain : Denies dysuria, frequency, hematuria, positive testicular pain MUSCULOSKELETAL: denies muscle or bony pain SKIN: Denies rash, skin lesions NEUROLOGIC: Denies weakness, numbness ROS Unobtainable: All systems reviewed & are unremarkable except as noted in HPI and below Patient History <Darrian Hanson MD - Last Filed: 09/16/21 13:36> Medical History (Updated 09/11/21 @ 18:59 by Salomón Green DO) Alcohol abuse Chicken pox (~1948) Excessive drinking of alcohol Former smoker, stopped smoking in distant past Hayfever History of revision of total replacement of right knee joint Measles (~194) Morbid obesity Mumps (~1948) Osteomyelitis Sleep apnea Surgical History History of right knee joint replacement Family History Father CAD (coronary artery disease) [place] (myocardial infarction) Mother CAD (coronary artery disease) Severe hypertension Social History household members: children Smoking Status: Former smoker alcohol intake: current Smoking Status: Former smoker alcohol intake frequency: other Substance Use Type: does not use Exam <Darrian Hanson MD - Last Filed: 09/16/21 13:36> Narrative Exam Narrative: GENERAL: in no distress, not toxic not dyspneic HEAD: Normocephalic. GASTROINTESTINAL: Abdomen soft, non-tender : Examination of genitalia. Normal external exam. Patient is uncircumcised. No erythema or induration skin. Left testicle nontender not edematous or sw ollen. There is tenderness to the epididymis of the right testicle. No edema or swelling of the right testicle. Cremasteric reflex is intact. Testicles do not lie in horizontal plane NEURO: AOx4. SKIN: Warm and dry PSYCH: Not anxious, is cooperative Initial Vital Signs Initial Vital Signs: Vital Signs Temperature 98.6 F 09/11/21 14:27 Pulse Rate 80 09/11/21 14:27 Respiratory Rate 18 09/11/21 14:27 Blood Pressure 150/68 H 09/11/21 14:27 Pulse Oximetry 97 09/11/21 14:27 <Salomón Green DO - Last Filed: 09/12/21 05:07> Initial Vital Signs Initial Vital Signs: Vital Signs Temperature 98.6 F 09/11/21 14:27 Pulse Rate 80 09/11/21 14:27 Respiratory Rate 18 09/11/21 14:27 Blood Pressure 150/68 H 09/11/21 14:27 Pulse Oximetry 97 09/11/21 14:27 Course <Darrian Hanson MD - Last Filed: 09/16/21 13:36> Course Course Narrative: 6:00 p.m.. Sign out to Dr. Green, patient here for right testicular pain ongoing for 1 week. At this time testicular ultrasound pending. Orders Ordered: ED Orders 09/11/21 17:39 US scrotum Stat Vital Signs Vital signs: Vital Signs - 8 hr 09/11/21 14:27 09/11/21 17:17 09/11/21 17:18 Temperature 98.6 F Pulse Rate 80 63 65 Respiratory Rate 18 18 18 Blood Pressure 150/68 H 137/76 137/76 Pulse Oximetry 97 97 96 09/11/21 17:30 09/11/21 17:31 09/11/21 18:21 Temperature Pulse Rate 64 64 60 Respiratory Rate 18 18 Blood Pressure 114/60 119/83 Pulse Oximetry 95 94 99 <Salomón Green DO - Last Filed: 09/12/21 05:07> Orders Ordered: ED Orders 09/11/21 17:39 US scrotum Stat Vital Signs Vital signs: Vital Signs - 8 hr 09/11/21 14:27 09/11/21 17:17 09/11/21 17:18 Temperature 98.6 F Pulse Rate 80 63 65 Respiratory Rate 18 18 18 Blood Pressure 150/68 H 137/76 137/76 Pulse Oximetry 97 97 96 09/11/21 17:30 09/11/21 17:31 09/11/21 18:21 Temperature Pulse Rate 64 64 60 Respiratory Rate 18 18 Blood Pressure 114/60 119/83 Pulse Oximetry 95 94 99 MDM - Male Genitourinary <Darrian Hanson MD - Last Filed: 09/16/21 13:36> Lab Data Labs: Urine Dip Bedside Urine Glucose Negative Bedside Urine Bilirubin - Negative Bedside Urine Ketone - Negative Urine Specific [place] 1.015 Bedside Urine Occult Blood - Negative Bedside Urine pH 6 Bedside Urine Protein - Negative Bedside Urine Urobilinogen - Negative Bedside Urine Nitrite - Negative Bedside Urine Leukocytes - Negative Esterase <Salomón Green DO - Last Filed: 09/12/21 05:07> Lab Data Labs: Urine Dip Bedside Urine Glucose Negative Bedside Urine Bilirubin - Negative Bedside Urine Ketone - Negative Urine Specific [place] 1.015 Bedside Urine Occult Blood - Negative Bedside Urine pH 6 Bedside Urine Protein - Negative Bedside Urine Urobilinogen - Negative Bedside Urine Nitrite - Negative Bedside Urine Leukocytes - Negative Esterase Imaging Data Scrotal US: Radiologist's Impression: [address] [address] Ultrasound Report Signed Patient: Domingo Lu MR#: [id number] : 1940 Acct:[id number] Age/Sex: 80 / M Date of Service: 09/11/21 Loc: ED Accession Number: [id number] ?? Procedure: US scrotum Ordering Provider: Darrian Hanson MD PROCEDURE:? US SCROTUM ? INDICATIONS:? Right testicular pain ? TECHNIQUE:? Real-time scanning was performed of the scrotum and testicles, with image documentation.? Color and pulse Doppler interrogation was performed of both testicles.? ? COMPARISON:? [facility], US, US SCROTUM, 06/28/2018, 13:11. ? FINDINGS:? ? Right:? Testicle is normal in size at 3.9 x 2.4 x 3.2 cm, and homogenous in echotexture.? Edematous appearance of the epididymis with hyperemia and heterogeneous echotexture.? Small hydrocele.? Hypoechoic lesion in the epididymal head, measuring up to 10.4 mm, most consistent with a cyst or spermatocele.? No varicocele.? Overlying scrotal skin is thickened.? ? Left:? Testicle is normal in size at 3.9 x 2.7 x 2.6 cm, and homogeneous in echotexture.? Single micro calculus in the inferior testis, measuring 1.5 mm. Epididymis demonstrates heterogeneous echotexture with normal vascularity.? Small hydrocele.? No myah icocele.? Overlying scrotal skin is thickened.? ? Doppler:? Color and pulse Doppler demonstrate normal and symmetric arterial flow in both testicles.? ? IMPRESSION:? 1. Edematous appearance of the right epididymis, compatible epididymitis. 2. Scrotal wall thickening.? 3. Small bilateral hydroceles.? ? Dictated by: Donnell Guerra M.D. on 09/11/2021 at 18:30 ? ? Approved by: Donnell Guerra M.D. on 09/11/2021 at 18:39 ? MDM Narrative Medical decision making narrative: 1800 -patient received in sign-out from Dr. Hanson pending results of ultrasound. I performed independent history and physical exam, patient is resting comfortably Discharge Plan Departure Patient Disposition: Home Clinical Impression: Acute epididymitis Instructions: Epididymitis Activity Restrictions/Additional Instructions: *You have been diagnosed with [acute epididymitis. ] *What to do: *Please continue to take your regular medications as directed. [x] New medication prescriptions sent to your pharmacy: [[facility] ] [ ] New medication written as a paper prescription [ ] No new medications given *Please follow up with your primary care provider in 2-3 days, call for an appointment. Let them know you were seen in the Emergency Department and that we ask that you be seen in follow up. We will electronically transmit a record of today's note if your PCP is in our system *If you do not have a primary care provider please contact the [facility] Resource line at [phone]. They will ask some questions about your medical history and help get you set up with a doctor in the community. *Return to Emergency Department if you should have any new, worsening or concerning symptoms, such as [fever greater than 101 F, shaking chills, worsening pain, persistent vomiting or other bothersome symptoms] Prescriptions: New ciprofloxacin HCl 500 mg tablet 500 mg PO BID Qty: 20 0RF No Action atenolol 50 mg tablet 50 mg PO DAILY Qty: 90 3RF amlodipine 10 mg tablet 10 mg PO DAILY Qty: 90 3RF atorvastatin 40 mg tablet 40 mg PO BEDTIME Qty: 90 3RF cephalexin 500 mg capsule 500 mg PO DAILY Qty: 90 3RF losartan [Cozaar] 50 mg tablet 50 mg PO DAILY Qty: 90 3RF meloxicam 15 mg tablet 15 mg PO DAILY Qty: 90 3RF omega-3 fatty acids 1 dose PO DAILY 0RF Referrals: Domingo Gonzalez MD [Primary Care Provider] -
== END 2021-09-11 19:16 | disposition home or self-care (01) ==
PROVIDERS: Emergency Provider Emergency Medicine; PCP Student in an Organized Health Care Education/Training Program
DX: N45.1 Epididymitis (principal)
CPT/HCPCS: 76870; 81003; 99283

== ENCOUNTER → 2022-04-10 15:21 | Outpatient (CLI) | payer MEDICARE, OTHER, SELFPAY ==
[2021-11-26 14:35] VITALS: BMI 49.8
[2022-04-10 19:46] LABS: BUN Creatinine Ratio 21.3 (6-22); Blood Urea Nitrogen 26 mg/dL (9-20); Calcium 9.2 mg/dL (8.4-10.2); Carbon Dioxide 28 mmol/L (22-32); Chloride 101 mmol/L (98-107); Estimated Glomerular Filt Rate 60 mL/min (>60); Glucose 76 mg/dL (80-110); HEMOLYSIS 16 (0-50); Potassium 4.5 mmol/L (3.4-5.1); Sodium 138 mmol/L (137-145)
== END ==
PROVIDERS: PCP Student in an Organized Health Care Education/Training Program; Referring Provider Urology; Visit Provider Urology
DX: N50.3 Cyst of epididymis (principal); N50.89 Other specified disorders of the male genital organs; Z87.438 Personal history of other diseases of male genital organs
CPT/HCPCS: 36415; 80048

== ENCOUNTER → 2022-04-14 12:55 | Outpatient (CLI) | payer MEDICARE, OTHER, SELFPAY ==
[2021-11-26 14:35] VITALS: BMI 49.8
--- NOTE | 2022-04-14 12:58 | DI.US.S_ITS ---
PROCEDURE: US SCROTUM INDICATIONS: RIGHT TESTICLE PAIN AND SWELLING TECHNIQUE: Real-time scanning was performed of the scrotum and testicles, with image documentation. Color and pulse Doppler interrogation was performed of both testicles. COMPARISON: [facility], , US SCROTUM, 09/11/2021, 17:55. FINDINGS: Right: Testicle is normal in size at 4.0 x 2.3 x 3.3 cm, and heterogeneous in echotexture. Epididymis is normal in overall size . Right epididymal cyst measuring 10 mm. Calcifications within the epididymal body.. A hydrocele is present. No varicocele. Overlying scrotal skin is normal in thickness. Left: Testicle is normal in size at 4.1 x 2.4 x 2.8 cm, and heterogeneous in echotexture. Epididymis is normal in overall size and morphology. Calcifications within the epididymal body. A hydrocele is present. No varicocele. Overlying scrotal skin is normal in thickness. Doppler: Color and pulse Doppler demonstrate normal and symmetric arterial flow in both testicles. IMPRESSION: 1. No change in heterogeneous testicular parenchyma bilaterally without focal mass. 2. Bilateral hydroceles. 3. Right epididymal cysts, as before. Dictated by: Bonnie Ibrahim M.D. on 04/14/2022 at 15:01 Transcribed by: CARLOS A on 04/14/2022 at 15:03 Approved by: Bonnie Ibrahim M.D. on 04/14/2022 at 16:52
--- NOTE | 2022-04-14 12:58 | DI.CT.S_ITS ---
PROCEDURE: CT ABDOMEN PELVIS WO/W CON INDICATIONS: Abdominal pain/right flank pain TECHNIQUE: Optional 5 mm thick noncontrast images acquired from the diaphragm to the symphysis pubis. After the administration of intravenous contrast, 5 mm thick images acquired from the diaphragm to the symphysis pubis after a 10-minute delay. 2 mm thick coronal and sagittal reformats were then performed of the kidneys and ureters. For radiation dose reduction, the following was used: automated exposure control, adjustment of mA and/or kV according to patient size. COMPARISON: None. FINDINGS: Image quality: Excellent. Lung bases: Scattered scarring/atelectasis. Cardiomegaly. Calcified pleural plaques. Urinary system: Vascular calcifications and numerous intrarenal nonobstructing calculi under 5 mm. Subcentimeter lesions are too small to characterize. Left-sided nonenhancing renal cysts. No hydronephrosis. No ureteral calculi. Bladder is under distended, limiting evaluation. No calculi identified. The bladder is thick walled diffusely, which may be at least partially due to underdistention. Other solid organs: Liver is unremarkable. Cholelithiasis. Spleen, pancreas, adrenals are unremarkable. Peritoneum and bowel: Suspected esophageal fluid may be from reflux. No bowel obstruction. No pathologic free fluid. Old torsed epiploic appendage around the sigmoid colon. Nodes and vessels: No pathologic lymphadenopathy. [id number] atherosclerotic calcifications. The abdominal aorta is ectatic up above the bifurcation by under 3 cm. Abdominal wall: Right inguinal hernia. Pelvis: Prostate calcifications and borderline prostatomegaly. Bones: Spondylotic changes. No suspicious or acute osseous abnormality. Right iliac wing deformity. IMPRESSION: Multiple renal calculi without hydronephrosis measuring under 5 mm. Bladder is under distended, limiting evaluation. No radiopaque bladder stone. Consider cystoscopy to evaluate for lower tract disease as needed. Other incidental findings above. Of note, there is a right fat containing inguinal hernia on this non provocative exam. Dictated by: Darion Bhakta M.D. on 04/14/2022 at 14:57 Approved by: Darion Bhakta M.D. on 04/14/2022 at 15:06
== END ==
PROVIDERS: PCP Student in an Organized Health Care Education/Training Program; Referring Provider Urology; Visit Provider Urology
DX: N50.3 Cyst of epididymis (principal); N43.3 Hydrocele, unspecified; N20.0 Calculus of kidney; K40.90 Unilateral inguinal hernia, without obstruction or gangrene, not specified as recurrent; N50.819 Testicular pain, unspecified; N50.89 Other specified disorders of the male genital organs; R10.9 Unspecified abdominal pain; Z87.438 Personal history of other diseases of male genital organs
CPT/HCPCS: 74178; 76870; Q9967

== ENCOUNTER → 2022-06-03 11:55 | Outpatient (CLI) | payer MEDICARE, OTHER, SELFPAY ==
[2021-11-26 14:35] VITALS: BMI 49.8
[2022-06-03 12:40] LABS: COVID19 -Nasal RAPID Negative (Negative)
== END ==
PROVIDERS: PCP Student in an Organized Health Care Education/Training Program; Visit Provider Surgery
DX: Z20.822 Contact with and (suspected) exposure to COVID-19 (principal); Z01.812 Encounter for preprocedural laboratory examination
CPT/HCPCS: 87635; C9803

== ENCOUNTER 2022-06-04 08:50 | Day surgery (SDC) | payer MEDICARE, OTHER, SELFPAY ==
[2021-11-26 14:35] VITALS: BMI 49.8
[2022-05-29 14:26] VITALS: BMI 39.5
[2022-06-04] VITALS (12 sets, daily range): BP systolic 92–137; BP diastolic 47–77; PULSE 56–78; RESP 15–27; TEMP 36.2–36.6; O2SAT 91–99; BMI 39.5
[2022-06-04] MEDS: ACETAMINOPHEN 325 MG TABLET 975 MG PO (09:23)
[2022-06-04] MEDS: LACTATED RINGERS 1,000 ML 100 ML IV (09:24)
--- NOTE | 2022-06-04 09:54 | PM.HP.1 ---
History of Present Illness History of Present Illness Date Patient Seen: 06/04/22 Time Patient Seen: 09:54 Chief complaint: REPAIR RIGHT INGUINAL HERNIA Narrative: 81 y.o man with a symptomatic reducible right inguinal hernia here for elective repair. Please refer to H&P from 05/2022 for further detail. No interval change in health. Patient History Medical History Alcohol abuse Chicken pox (~1947) Epididymal cyst Excessive drinking of alcohol Former smoker, stopped smoking in distant past Hayfever History of epididymitis History of revision of total replacement of right knee joint Hx of gout Measles (~1947) Morbid obesity Mumps (~1948) Osteomyelitis Right inguinal hernia Scrotal mass Sleep apnea Surgical History History of right knee joint replacement Family & Social History Family History Father CAD (coronary artery disease) [place] (myocardial infarction) Mother CAD (coronary artery disease) Severe hypertension Social History: household members children Tobacco & Substance use: Smoking Status Former smoker alcohol intake current alcohol intake frequency 3 or more drinks per day Substance Use Type does not use Meds Home Medications and Allergies Home Medications Medication Instructions Recorded Confirmed Type omega-3 fatty acids [Fish Oil 1 dose PO DAILY 06/10/18 06/04/22 History Concentrate] amlodipine 10 mg tablet 10 mg PO DAILY #90 tabs 07/18/21 06/04/22 Rx atorvastatin 40 mg tablet 40 mg PO BEDTIME #90 tabs 07/18/21 06/04/22 Rx losartan 50 mg tablet (Cozaar) 50 mg PO DAILY #90 tabs 07/18/21 06/04/22 Rx meloxicam 15 mg tablet 15 mg PO DAILY #90 tabs 07/18/21 06/04/22 Rx atenolol 50 mg tablet 50 mg PO DAILY #90 tabs 08/28/21 06/04/22 Rx hydrocortisone 2.5 % topical cream 1 applic topical DAILY Itching #30 04/03/22 06/04/22 Rx grams cephalexin 500 mg capsule 500 mg PO DAILY Osteomyelitis #90 05/07/22 06/04/22 Rx caps Allergies Allergy/AdvReac Type Severity Reaction Status Date / Time adhesive tape Allergy Mild Rash Verified 06/04/22 09:18 Exam Vital Signs (past 8 hours): - 06/04/22 09:26 Temperature 97.1 F L Pulse Rate 78 Respiratory Rate 22 Blood Pressure 137/77 Pulse Oximetry 97 Oxygen Delivery Method Room Air Oxygen Delivery Method Room Air Narrative Exam Narrative: General adult male alert oriented no acute distress Chest nonlabored respiration Abdomen right inguinal marked my initials. Assessment & Plan Assessment and plan (1) Right inguinal hernia: Status: Acute Assessment & Plan narrative: 81-year-old male with a symptomatic reducible right inguinal hernia here for elective open hernia repair. Over the operation again was discussed patient at the bedside. Operative risks bleeding, infection chronic pain recurrence damage to surrounding structures were discussed. His questions have been answered and he is in agreement with this plan Time Spent With Patient Critical Care time: I spent a total of [] minutes of critical care time on this patient's care today; this time is exclusive of procedural time.
[2022-06-04] MEDS: CEFAZOLIN VIAL 1 GM in SODIUM CHLORIDE 0.9% 100 ML IV (10:07)
[2022-06-04] MEDS: CEFAZOLIN 2 GM/100 ML PREMIX 100 ML IV (10:07)
[2022-06-04] MEDS: BUPIVACAINE 0.25% (PF) VIAL 30 ML INJ (10:37)
[2022-06-04] MEDS: OXYCODONE IR 5 MG TABLET PO (12:09)
--- NOTE | 2022-06-04 15:43 | PM.OP.1 ---
Operative Date/Time/Diagnoses Date of procedure: 06/04/22 Time of procedure: 15:43 Pre-op diagnosis: Reducible right inguinal hernia Post-op diagnosis: same Procedure & Clinicians Procedure: Open right inguinal hernia repair with mesh Same procedure as scheduled: Yes Indications: Symptomatic reducible right inguinal hernia Surgeon: Lester Catherine Anesthesia Type: General Operative Notes Findings: Direct floor defect. No indirect hernia Specimen(s): none sent Estimated Blood Loss (mL): 50 Procedure in detail: The patient was placed supine on the table and bilateral lower extremity compression devices were applied. Anesthesia was induced they were intubated with an LMA and received Ancef. A time-out was performed. They were prepped and draped in sterile fashion. The right external inguinal ring and the anterior superior iliac crest were identified and marked. 1 finger breath above the inguinal ligament the skin was infiltrated with 0.25% bupivacaine. The skin incision was made here and the subcutaneous tissues were divided with electrocautery exposing the external oblique aponeurosis which was then opened along the direction of its fibers. The subcutaneous tissue was extremely thick at least 5-6 inches in depth. The cord was carefully dissected away from the inguinal canal adjacent to the pubic tubercle. The cord including the vas deferens, testicular bloody supply, ilioguinal and genital nerve were encircled with a [place] drain. A large direct floor defect was identified and it was reduced into the abdomen and the internal oblique aporneuorsis was approximated to the inguinal ligament with Ethibond suture to reapproximate the floor. The cremasteric fibers surrounding the cord were divided using electrocautery adjacent to the internal ring.. The cord was carefully explored. There was no evidence of a indirect hernia. I selected a 7x 15 cm lightweight Pro Loop hernia mesh. The inferior medial aspect of the mesh was anchored to the insertion of the rectus muscle to the pubic tubercle such that there was approximately 2 cm of tubercle overlap with Ethibond. The inferior edge of the mesh was then secured to the shelving edge of the inguinal ligament using Ethibond. Interrupted 3 0 Vicryl suture was used to anchor the superior aspect of the mesh to the conjoined tendon in several places. The tails were then reapproximated loosely around the spermatic cord. The tails of the mesh were then tucked under the external oblique aponeurosis. The repair was checked for hemostasis. The wound was irrigated with sterile saline. The external oblique aponeurosis was reapproximated in a running fashion using 3 0 Vicryl. The subcutaneous tissues were reapproximated with 3 0 Vicryl skin closed with 4 0 Monocryl followed by the application of Dermabond. At the end of the operation I ensured that both testicles were within the scrotum. The sponge instrument count at the end operation was correct. The patient emerged from anesthesia was extubated and transferred to the postoperative care unit in stable condition. A total of 30 ml of of 0.25% bupivicaine was used to infiltrate the skin. A significantly larger skin incision than typical was necessary for adequate exposure given his obesity. Complications: none Post-operative Condition: stable Disposition: same day surgery
== END 2022-06-04 13:25 | disposition home or self-care (01) ==
PROVIDERS: PCP Student in an Organized Health Care Education/Training Program; Referring Provider Surgery; Visit Provider Surgery
PROC: (CPT 49505; principal; 2022-06-04 10:15)
DX: K40.90 Unilateral inguinal hernia, without obstruction or gangrene, not specified as recurrent (principal); G47.33 Obstructive sleep apnea (adult) (pediatric); I10 Essential (primary) hypertension; E78.5 Hyperlipidemia, unspecified; E66.9 Obesity, unspecified; Z68.39 Body mass index [BMI] 39.0-39.9, adult
CPT/HCPCS: 49505; J0690; J1100; J1885; J2250; J2405; J2704; J3010

== ENCOUNTER → 2022-07-04 11:00 | Outpatient (CLI) | payer MEDICARE, OTHER, SELFPAY ==
[2022-06-20 12:03] VITALS: BMI 49.8
[2022-07-04 11:59] LABS: INR 1.6 (0.9-1.3); Prothrombin Time 18.5 SECONDS (10.1-12.7)
== END ==
PROVIDERS: PCP Student in an Organized Health Care Education/Training Program; Referring Provider Student in an Organized Health Care Education/Training Program; Visit Provider Student in an Organized Health Care Education/Training Program
DX: I48.21 Permanent atrial fibrillation (principal); Z51.81 Encounter for therapeutic drug level monitoring; Z79.01 Long term (current) use of anticoagulants
CPT/HCPCS: 36415; 85610

== ENCOUNTER → 2022-07-14 16:01 | Outpatient (CLI) | payer MEDICARE, OTHER, SELFPAY ==
[2022-06-20 12:03] VITALS: BMI 49.8
[2022-07-14 16:54] LABS: Prothrombin Time 72.2 SECONDS (10.1-12.7)
[2022-07-14 16:59] LABS: INR 6.2 (0.9-1.3)
== END ==
PROVIDERS: PCP Student in an Organized Health Care Education/Training Program; Referring Provider Student in an Organized Health Care Education/Training Program; Visit Provider Student in an Organized Health Care Education/Training Program
DX: I48.21 Permanent atrial fibrillation (principal); Z51.81 Encounter for therapeutic drug level monitoring; Z79.01 Long term (current) use of anticoagulants
CPT/HCPCS: 36415; 85610

== ENCOUNTER → 2022-07-17 15:29 | Outpatient (CLI) | payer MEDICARE, OTHER, SELFPAY ==
[2022-06-20 12:03] VITALS: BMI 49.8
[2022-07-17 17:02] LABS: INR 2.2 (0.9-1.3); Prothrombin Time 25.3 SECONDS (10.1-12.7)
== END ==
PROVIDERS: PCP Student in an Organized Health Care Education/Training Program; Referring Provider Student in an Organized Health Care Education/Training Program; Visit Provider Student in an Organized Health Care Education/Training Program
DX: I48.21 Permanent atrial fibrillation (principal); Z51.81 Encounter for therapeutic drug level monitoring; Z79.01 Long term (current) use of anticoagulants
CPT/HCPCS: 36415; 85610

== ENCOUNTER → 2022-07-28 10:52 | Outpatient (CLI) | payer MEDICARE, OTHER, SELFPAY ==
[2022-06-20 12:03] VITALS: BMI 49.8
[2022-07-28 12:42] LABS: Prothrombin Time 69.7 SECONDS (10.1-12.7)
== END ==
PROVIDERS: PCP Student in an Organized Health Care Education/Training Program; Referring Provider Student in an Organized Health Care Education/Training Program; Visit Provider Student in an Organized Health Care Education/Training Program
DX: I48.21 Permanent atrial fibrillation (principal); Z51.81 Encounter for therapeutic drug level monitoring; Z79.01 Long term (current) use of anticoagulants
CPT/HCPCS: 36415; 85610

== ENCOUNTER → 2023-01-02 12:23 | Outpatient (CLI) | payer OTHER, SELFPAY ==
[2022-06-20 12:03] VITALS: BMI 49.8
[2023-01-02 13:01] LABS: INR 7.6 (0.9-1.3)
== END ==
PROVIDERS: Internal Medicine; PCP Student in an Organized Health Care Education/Training Program; Referring Provider Student in an Organized Health Care Education/Training Program; Visit Provider Student in an Organized Health Care Education/Training Program
DX: I48.91 Unspecified atrial fibrillation (principal)
CPT/HCPCS: 36415; 85610

== ENCOUNTER → 2023-07-10 11:42 | Outpatient (CLI) | payer OTHER, SELFPAY ==
[2022-06-20 12:03] VITALS: BMI 49.8
== END ==
PROVIDERS: Referring Provider Urology; Visit Provider Urology
DX: Z12.5 Encounter for screening for malignant neoplasm of prostate (principal)
CPT/HCPCS: 36415; G0103

== ENCOUNTER 2023-09-28 07:45 | Emergency (ER) | payer OTHER, SELFPAY ==
[2022-06-20 12:03] VITALS: BMI 49.8
[2023-09-28] VITALS (11 sets, daily range): BP systolic 124–171; BP diastolic 59–76; PULSE 68–84; RESP 22–35; TEMP 36.9; O2SAT 92–95; BMI 40.6
--- NOTE | 2023-09-28 08:02 | DI.RAD.S_ITS ---
PROCEDURE: XR CHEST 1V INDICATIONS: Shortness of breath TECHNIQUE: One view of the chest was acquired. COMPARISON: [facility], CR, XR CHEST 1V, 10/04/2018, 14:15. FINDINGS: Surgical changes and devices: None. Lungs and pleura: Minimal increased vascularity. Mediastinum: Mediastinal contours appear normal. Heart size is enlarged. Bones and chest wall: No suspicious bony lesions. Overlying soft tissues appear unremarkable. IMPRESSION: Cardiomegaly with increased vascularity suggestive of edema. Dictated by: Karishma Coronado M.D. on 09/28/2023 at 8:36 Approved by: Karishma Coronado M.D. on 09/28/2023 at 8:36
[2023-09-28 08:24] LABS: Add Manual Diff / Slide Review NO; Basophils Absolute Auto 0 /uL (0-100); Basophils Percent Auto 0.6 % (0-2); Eosinophils Absolute Auto 300 /uL (0-450); Eosinophils Percent Auto 3.8 % (2-4); Hematocrit 41.3 % (41-53); Hemoglobin 14.5 g/dL (13.5-17.5); Lymphocytes Absolute Auto 1200 /uL (1100-4500); Lymphocytes Percent Auto 15.1 % (25-40); Mean Corpuscular HGB Conc 35.2 % (30-36); Mean Corpuscular Hemoglobin 34.9 PG (26-34); Mean Corpuscular Volume 99.2 fL (80-100); Monocytes Absolute Auto 800 /uL (0-900); Monocytes Percent Auto 9.3 % (3-14); Neutrophils Absolute Auto 5700 /uL (1500-7000); Neutrophils Percent Auto 71.2 % (50-75); Platelet Count 160 X10^3/uL (150-400); Red Blood Cell Count 4.16 X10^6/uL (4.5-5.9); Red Cell Distribution Width 13.1 % (11.6-14.8); White Blood Cell Count 8.1 X10^3/uL (4.5-11.0)
[2023-09-28 08:27] LABS: INR 1.4 (0.9-1.3); Prothrombin Time 16.3 SECONDS (9.4-12.5)
[2023-09-28 08:35] LABS: Lactate (Lactic Acid) 1.5 mmol/L (0.7-2.1)
[2023-09-28 08:36] LABS: Alanine Aminotransferase 17 IU/L (<50); Albumin 3.8 g/dL (3.5-5.0); Alkaline Phosphatase 73 U/L (38-126); Aspartate Aminotransferase 28 IU/L (17-59); BUN Creatinine Ratio 20.8 (6-22); Bilirubin Total 2.2 mg/dL (0.2-1.3); Blood Urea Nitrogen 20 mg/dL (9-20); Calcium 9.6 mg/dL (8.4-10.2); Carbon Dioxide 28 mmol/L (22-32); Chloride 101 mmol/L (98-107); Estimated Glomerular Filt Rate > 60 mL/min (>60); Globulin 3.7 g/dL (1.7-4.1); Glucose 150 mg/dL (80-110); HEMOLYSIS < 15 (0-50); Potassium 4.2 mmol/L (3.4-5.1); Sodium 136 mmol/L (137-145); Total Protein 7.5 g/dL (6.3-8.2)
[2023-09-28 08:47] LABS: NT-proBNP (BNP-Adult 18+) 1010 pg/mL (<450); Troponin I < 0.012 ng/mL (0.01-0.034)
[2023-09-28 09:11] LABS: Adenovirus Not Detected (Not Detect); B. parapertussis Not Detected (Not Detecte); Bordetella pertussis Not Detected (Not Detect); Chlamydophila pneumoniae Not Detected (Not Detect); Coronavirus 229E Not Detected (Not Detect); Coronavirus HKU1 Not Detected (Not Detect); Coronavirus NL 63 Not Detected (Not Detect); Coronavirus OC43 Not Detected (Not Detect); Human Metapneumovirus Not Detected (Not Detect); Human Rhinovirus/Enterovirus Not Detected (Not Detect); Influenza A Not Detected (Not Detect); Influenza B Not Detected (Not Detect); Mycoplasma pneumoniae Not Detected (Not Detect); Parainfluenza Virus 1 Not Detected (Not Detect); Parainfluenza Virus 2 Not Detected (Not Detect); Parainfluenza Virus 3 Not Detected (Not Detect); Parainfluenza Virus 4 Not Detected (Not Detect); Respiratory Syncytial Virus Not Detected (Not Detect); SARS- CoV-2 Not Detected (Not Detecte)
--- NOTE | 2023-09-28 09:17 | ED.SOB ---
HPI - SOB/Dyspnea General Chief Complaint: Shortness of Breath/Dyspnea Stated Complaint: poss pneumonia Time Seen by Provider: 09/28/23 09:16 Source: patient and family Mode of arrival: Wheelchair Limitations: no limitations History of Present Illness HPI Narrative: This is a 82-year-old male with history of atrial fibrillation on Eliquis, hypertension, dyslipidemia, ALISSON, obesity and BPH. Patient presents with complaint of cough, increased shortness of breath with exertion for the past week. He states he feels like it started with normal cold symptoms. He denies any nasal congestion. States cough has started develop phlegm which has been sort of layton in color. It seems to be deeper in his chest. He denies any chest pain or pressure. He states he does not feel significantly more short of breath accept somewhat more when he exerts himself. He can lay flat but is more comfortable being upright. He denies any fevers or sweats. Denies any nausea or vomiting, no diarrhea or constipation. No urinary symptoms. Denies any new swelling in his extremities. Patient is on any diuretics. He did have an echo in 2019 which at that time had an EF of 55 % no focal changes but severely dilated left and right atria and normal valves. Patient states he has not had an echo since then. Former smoker, does drink alcohol daily, no recreational drugs. He is accompanied by his daughter. Dr. Geiger is his primary care physician. Related Data Home Medications Medication Instructions Recorded Confirmed omega-3 fatty acids [Fish Oil 1 dose PO DAILY 06/10/18 04/07/23 Concentrate] Previous Rx's Medication Instructions Recorded hydrocortisone 2.5 % topical cream 1 applic topical DAILY Itching #30 04/03/22 grams tramadol 50 mg tablet 50 mg PO Q6H PRN pain #30 tabs 06/12/22 doxycycline hyclate 100 mg tablet 100 mg PO BID #20 tabs 01/02/23 Parking Permit... #1 ea 01/05/23 warfarin 5 mg tablet 5 mg PO DAILY #90 tabs 01/05/23 atenolol 50 mg tablet 50 mg PO DAILY #90 tabs 04/28/23 amlodipine 10 mg tablet 10 mg PO DAILY #90 tabs 04/29/23 apixaban 5 mg tablet (Eliquis) 5 mg PO BID #180 tabs 04/29/23 atorvastatin 40 mg tablet 40 mg PO BEDTIME #90 tabs 04/29/23 cephalexin 500 mg capsule 500 mg PO DAILY Osteomyelitis #90 04/29/23 caps losartan 50 mg tablet (Cozaar) 50 mg PO DAILY #90 tabs 04/29/23 meloxicam 15 mg tablet 15 mg PO DAILY #90 tabs 04/29/23 furosemide 40 mg tablet (Lasix) 40 mg PO DAILY #4 tabs 09/28/23 Allergies Allergy/AdvReac Type Severity Reaction Status Date / Time adhesive tape Allergy Mild Rash Verified 04/07/23 16:00 Review of Systems Review of Systems ROS Unobtainable: All systems reviewed & are unremarkable except as noted in HPI and below Patient History Medical History Benign prostatic hyperplasia Lower urinary tract symptoms Anticoagulation goal of INR 2 to 3 Right inguinal hernia History of epididymitis Epididymal cyst Hx of gout History of revision of total replacement of right knee joint Former smoker, stopped smoking in distant past Alcohol abuse Excessive drinking of alcohol Osteomyelitis Morbid obesity Sleep apnea Hayfever Mumps (~194) Measles (~194) Chicken pox (~194) Surgical History History of right knee joint replacement Family History Father CAD (coronary artery disease) [place] (myocardial infarction) Mother CAD (coronary artery disease) Severe hypertension Social History marital status: number of children: 2 household members: children Smoking Status: Former smoker alcohol intake: current Type(s) of exercise: none Smoking Status: Former smoker alcohol intake frequency: 3 or more drinks per day Substance Use Type: does not use Exam Narrative Exam Narrative: GENERAL: Alert and oriented x three, elderly male in mild distress HEENT: Head normocephalic, atraumatic, EOMI, pupils reactive, face symmetric, moist mucous membranes NECK: Supple, full range of motion CARDIOVASCULAR: Regular rate and rhythm without murmurs, rubs or gallops. No JVD. Trace edema bilateral lower extremities. RESPIRATORY: Breath sounds equal bilaterally, no wheezes, no rhonchi, crackles bilateral bases. Mild tachypnea, no accessory muscle use. Speaks in full sentences. ABDOMEN: Soft, nontender. Normoactive bowel sounds all 4 quadrants. No guarding or rebound, rigidity, no mass : No CVA tenderness EXTREMITIES: Normal range of motion, no clubbing. Neurovascularly intact NEUROLOGICAL: Cranial nerves II through XII grossly intact. Moving all extremities SKIN: Warm, dry, no petechiae, no rashes or lesions. Initial Vital Signs Initial Vital Signs: Vital Signs Pulse Rate 84 09/28/23 07:55 Respiratory Rate 35 H 09/28/23 07:55 Course Orders Ordered: Discontinued Medications Furosemide (Furosemide 40 Mg/4 Ml Vial) 40 mg IV NOW ONE Stop: 09/28/23 09:34 Last Admin: 09/28/23 09:36 Dose: 40 mg Documented By: MERYL Vital Signs Vital signs: Vital Signs - 8 hr 09/28/23 07:55 09/28/23 07:56 09/28/23 07:56 Temperature Pulse Rate 84 80 Respiratory Rate 35 H 26 H Blood Pressure 143/65 H Pulse Oximetry 93 Oxygen Delivery Method 09/28/23 07:59 09/28/23 08:00 09/28/23 08:01 Temperature 98.5 F Pulse Rate 80 81 79 Respiratory Rate 22 32 H 24 Blood Pressure 143/65 H Pulse Oximetry 93 94 94 Oxygen Delivery Method Room Air 09/28/23 08:01 09/28/23 08:30 09/28/23 08:31 Temperature Pulse Rate 74 Respiratory Rate 26 H Blood Pressure 171/76 H 135/60 Pulse Oximetry 92 Oxygen Delivery Method 09/28/23 08:31 09/28/23 09:00 09/28/23 09:01 Temperature Pulse Rate 74 69 Respiratory Rate 23 25 H Blood Pressure 124/59 L Pulse Oximetry 95 95 Oxygen Delivery Method 09/28/23 09:01 09/28/23 09:30 09/28/23 09:31 Temperature Pulse Rate 68 69 Respiratory Rate 28 H 24 Blood Pressure 135/62 Pulse Oximetry 94 92 Oxygen Delivery Method 09/28/23 09:31 Temperature Pulse Rate 70 Respiratory Rate 26 H Blood Pressure Pulse Oximetry 94 Oxygen Delivery Method MDM - SOB/Dyspnea Lab Data 09/28/23 08:08 09/28/23 08:08 Labs: Lab Results 09/28/23 09/28/23 Range/Units 08:08 08:10 WBC 8.1 (4.5-11.0) X10^3/uL RBC 4.16 L (4.5-5.9) X10^6/uL Hgb 14.5 (13.5-17.5) g/dL Hct 41.3 (41-53) % MCV 99.2 (80-100) fL MCH 34.9 H (26-34) PG MCHC 35.2 (30-36) % RDW 13.1 (11.6-14.8) % Plt Count 160 (150-400) X10^3/uL Neut % (Auto) 71.2 (50-75) % Lymph % (Auto) 15.1 L (25-40) % Charlton % (Auto) 9.3 (3-14) % Eos % (Auto) 3.8 (2-4) % Baso % (Auto) 0.6 (0-2) % Neut # (Auto) 5700 (7184-2134) /uL Lymph # (Auto) 1200 (3064-8278) /uL Charlton # (Auto) 800 (0-900) /uL Eos # (Auto) 300 (0-450) /uL Baso # (Auto) 0 (0-100) /uL PT 16.3 H (9.4-12.5) SECONDS INR 1.4 H (0.9-1.3) Sodium 136 L (137-145) mmol/L Potassium 4.2 (3.4-5.1) mmol/L Chloride 101 (98-107) mmol/L Carbon Dioxide 28 (22-32) mmol/L BUN 20 (9-20) mg/dL Creatinine 0.96 (0.66-1.25) mg/dL Estimated GFR > 60 (>60) mL/min BUN/Creatinine Ratio 20.8 (6-22) Glucose 150 H (80-110) mg/dL Lactate 1.5 (0.7-2.1) mmol/L Calcium 9.6 (8.4-10.2) mg/dL Total Bilirubin 2.2 H (0.2-1.3) mg/dL AST 28 (17-59) IU/L ALT 17 (<50) IU/L Alkaline Phosphatase 73 (38-126) U/L Troponin I < 0.012 (0.01-0.034) ng/mL NT-Pro-B Natriuret Pep 1010 H (<450) pg/mL Total Protein 7.5 (6.3-8.2) g/dL Albumin 3.8 (3.5-5.0) g/dL Globulin 3.7 (1.7-4.1) g/dL Albumin/Globulin Ratio 1.0 (1.0-2.8) Chlamy pneumoniae PCR Not detected (Not Detect) Adenovirus (PCR) Not detected (Not Detect) B.parapertussis DNA PCR Not detected (Not Detecte) Coronavirus OC43 (PCR) Not detected (Not Detect) Coronavirus HKU1 (PCR) Not detected (Not Detect) Coronavirus 229E (PCR) Not detected (Not Detect) SARS-CoV-2 (PCR) Not detected (Not Detecte) Coronavirus NL63 (PCR) Not detected (Not Detect) Human Metapneumovir PCR Not detected (Not Detect) Influenza Type A (PCR) Not detected (Not Detect) Influenza Type B (PCR) Not detected (Not Detect) M. pneumoniae (PCR) Not detected (Not Detect) Parainfluenza 1 (PCR) Not detected (Not Detect) Parainfluenza 2 (PCR) Not detected (Not Detect) Parainfluenza 3 (PCR) Not detected (Not Detect) Parainfluenza 4 (PCR) Not detected (Not Detect) RSV (PCR) Not detected (Not Detect) Entero/Rhino (PCR) Not detected (Not Detect) Imaging Data Chest x-ray: Radiologist's Impression: Domingo Lu?(John Paul)??82??M??1940 ? Allergy/Adv: adhesive tape Close Chest X-Ray (Signed) Karishma Coronado - 09/28/23 DI Result CC 10/27/22 Sc[place]um Ultrasound (Signed) Bonnie Ibrahim - 04/14/22 Abdomen/Pelvis CT (Signed) Darion Bhakta - 04/14/22 DI Result CC 12/10/21 [place] Ultrasound (Signed) Donnell Guerra - 09/11/21 Echocardiogram Ultrasound (Signed) Alex Nolasco - 10/05/18 Telemetry Strips 10/04/[address] (Signed) Andrea Hatch - 10/04/18 Chest X-Ray (Signed) Chet Gresham - 10/04/18 Chest X-Ray (Signed) Tiffanie Hopkins - 09/30/18 [place] Ultrasound (Signed) Andrea Hatch - 06/28/18 Launch?Image [address] [address] XRay Report Signed Patient: Domingo Lu MR#: [id number] : 1940 Acct:[id number] Age/Sex: 82 / M Date of Service: 09/28/23 Loc: ED Accession Number: [id number] Procedure: XR chest 1V Ordering Provider: Laureen Villagran D.O. PROCEDURE: XR CHEST 1V INDICATIONS: Shortness of breath TECHNIQUE: One view of the chest was acquired. COMPARISON: [facility], , XR CHEST 1V, 10/04/2018, 14:15. FINDINGS: Surgical changes and devices: None. Lungs and pleura: Minimal increased vascularity. Mediastinum: Mediastinal contours appear normal. Heart size is enlarged. Bones and chest wall: No suspicious bony lesions. Overlying soft tissues appear unremarkable. IMPRESSION: Cardiomegaly with increased vascularity suggestive of edema. Dictated by: Karishma Coronado M.D. on 09/28/2023 at 8:36 Approved by: Karishma Coronado M.D. on 09/28/2023 at 8:36 ECG Data Attestation: I personally reviewed and interpreted this ECG as follows: Prior ECG tracings: available for review Interpretation: AFib with a occasional PVC. Rate of 76, QRS of 144 QTC of 463. Right bundle-branch block. Patient has prior from 10/04/2018 with similar changes in 2 3 AVF. Some nonspecific change lateral leads. MDM Narrative Medical decision making narrative: 82-year-old male who comes with concern for possible pneumonia or upper respiratory infection, patient states it started out like a normal cold but never had any nasal congestion. Has had a persistent cough which he states is more in his chest describes it as having some green phlegm. No chest pain, little bit more short of breath than his normal. He notes particularly with exertion and somewhat with lying flat. Patient's labs show normal white count, hemoglobin of 14.5 with glucose of 160. INR is elevated 1.4 consistent with being on Eliquis. Patient's renal function, BUN and LFTs are otherwise appropriate. Lactate was negative at 1.5, troponin is negative BNP is 1010 with no priors for comparison. Patient's respiratory panel is negative. Chest x-ray does not show any pneumonia but does show some cardiomegaly with changes consistent with possible edema. ECHO 2019: Showed EF of 50-55% with no focal wall motion abnormalities, low normal function. Left atrium severely dilated. No significant valvular change or disease. Discussed with patient he seems to be slightly fluid overloaded rather than have pneumonia. We will give a dose of Lasix here. [place] appropriate for discharge home but will put on a short course of Lasix with plan for with polyp with primary care. Discussed with patient and family he has not had an echo since 2019 would be appropriate to follow this up as an outpatient at this time. Did discuss return precautions. Discharge Plan Departure Patient Disposition: Home Clinical Impression: CHF exacerbation Instructions: DI for Heart Failure Activity Restrictions/Additional Instructions: Follow up with your physician for recheck. Please call to set up an appointment. I suspect your symptoms are more from fluid overload and congestive heart failure then infection today. Please take Lasix once daily until completed. I would recommend taking this in the morning. Prescription sent to [facility] in [place]. Continue your home medications as prescribed. Please return if having significantly worsening symptoms, new chest pain, increasing shortness of breath, lightheadedness or passing out, new swelling in your extremities, fevers or other new or concerning changes. Prescriptions: New furosemide [Lasix] 40 mg tablet 40 mg PO DAILY Qty: 4 0RF No Action hydrocortisone 2.5 % cream 1 applic topical DAILY Qty: 30 0RF Rx Instructions: Apply to affected area (DME) Parking Permit... See Rx Instructions .ROUTE .MEDSUPPLY Qty: 1 0RF Rx Instructions: As directed atenolol 50 mg tablet 50 mg PO DAILY Qty: 90 1RF amlodipine 10 mg tablet 10 mg PO DAILY Qty: 90 2RF atorvastatin 40 mg tablet 40 mg PO BEDTIME Qty: 90 2RF losartan [Cozaar] 50 mg tablet 50 mg PO DAILY Qty: 90 2RF meloxicam 15 mg tablet 15 mg PO DAILY Qty: 90 2RF cephalexin 500 mg capsule 500 mg PO DAILY Qty: 90 2RF Eliquis 5 mg tablet 5 mg PO BID Qty: 180 2RF Rx Instructions: start eliquis and stop warfarin on same day. continue if tolerated. stop if any excessive bruising or bleeding anywhere. doxycycline hyclate 100 mg tablet 100 mg PO BID Qty: 20 0RF warfarin 5 mg tablet 5 mg PO DAILY Qty: 90 2RF Rx Instructions: Take 2.5mg on Thursday, and 5mg all other days. omega-3 fatty acids 1 dose PO DAILY tramadol 50 mg tablet 50 mg PO Q6H PRN (Reason: pain) Qty: 30 0RF Referrals: Berny Geiger MD [Primary Care Provider] - Stand Alone Forms: Patient Portal/API
[2023-09-28] MEDS: FUROSEMIDE 40 MG/4 ML VIAL IV (09:36)
== END 2023-09-28 09:58 | disposition home or self-care (01) ==
PROVIDERS: Emergency Provider Emergency Medicine; PCP Pediatrics
DX: I50.9 Heart failure, unspecified (principal); R06.02 Shortness of breath; Z79.01 Long term (current) use of anticoagulants; Z79.899 Other long term (current) drug therapy
CPT/HCPCS: 36415; 71045; 80053; 83605; 83880; 84484; 85025; 85610; 87633; 93005; 96374; 99284; J1940

== ENCOUNTER → 2023-10-08 12:11 | Outpatient (CLI) | payer OTHER, SELFPAY ==
[2022-06-20 12:03] VITALS: BMI 49.8
--- NOTE | 2023-10-08 12:13 | DI.US.S_ITS ---
PROCEDURE: US ABDOMEN LIMITED INDICATIONS: HIGH TOTAL BILIRUBIN, MIXED HYPERLIPIDEMIA TECHNIQUE: Real-time focused scanning was performed of the abdomen, with image documentation. COMPARISON: None. FINDINGS: The liver demonstrates normal size. The liver demonstrates generalized severe increased echogenicity. This decreases ultrasound sensitivity for detection of hepatic masses. Multiple gallstones are seen, with the largest measuring up to 18 mm. The mobility of these gallstones cannot be assessed, secondary to the fact that the gallbladder is packed full of gallstones. The gallbladder wall is not thickened, measuring 3 mm or less. No specific pericholecystic fluid is seen. The sonographic Nick sign is negative. The biliary system is not well seen. The pancreas is not well seen. No free fluid is seen. This study is limited by body habitus. IMPRESSION: The gallbladder is full of gallstones. No additional sonographic signs of cholecystitis are seen. Severe fatty liver infiltration. Dictated by: Magdaleno Yanez M.D. on 10/08/2023 at 17:06 Approved by: Magdaleno Yanez M.D. on 10/08/2023 at 17:07
== END ==
LOC: US 12:13
PROVIDERS: PCP Family Medicine; Referring Provider Family Medicine; Visit Provider Family Medicine
DX: K80.20 Calculus of gallbladder without cholecystitis without obstruction (principal); K76.0 Fatty (change of) liver, not elsewhere classified; R17 Unspecified jaundice; E78.2 Mixed hyperlipidemia; F10.10 Alcohol abuse, uncomplicated; E66.01 Morbid (severe) obesity due to excess calories
CPT/HCPCS: 76705

== ENCOUNTER → 2023-10-29 15:04 | Outpatient (CLI) | payer OTHER, SELFPAY ==
[2022-06-20 12:03] VITALS: BMI 49.8
--- NOTE | 2023-10-29 15:05 | DI.ECHO.S_ITS ---
[facility] +---------+ : : [address] [place] : : : : [id number] : : : : Phone: [phone]+ Echocardiogram Report + + :Name: FARZAD MENDOZA Study Date: 10/29/2023 Height: 72 in : :[facility] ReadingLocation: Weight: 320 lb: : Gender: Male BSA: 2.6 m2 : :: 1940 Age: 82 yrs : :Reason For Study: HEART FAILURE, UNSPECIFIED ATRIAL : :FIBRILLATION : :Ordering Physician: ZULEYMA, : :MERE Performed By: Shaquille [facility] : :Referring: MERE AMOR : + + Interpretation Summary The ejection fraction is estimated to be 50-55%. There are no obvious focal wall motion abnormalities noted but poor endocardial definition reduces the sensitivity for the detection of such. The right ventricle is moderately dilated. Right ventricular systolic function is mildly reduced. There is mild mitral regurgitation. There is mild tricuspid regurgitation. Procedure: A two-dimensional transthoracic echocardiogram with color flow and Doppler was performed. The study quality was technically difficult. Comparison is made with the echocardiogram of 10/05/18. The patient was in atrial fibrillation with heart rates between 53-91 bpm during the exam. Left Ventricle: There is mild concentric left ventricular hypertrophy. The left ventricle appears normal in size, wall thickness, and systolic function without any focal wall motion abnormalities. The ejection fraction is estimated to be 50-55%. There are no obvious focal wall motion abnormalities noted but poor endocardial definition reduces the sensitivity for the detection of such. Right Ventricle: The right ventricle is moderately dilated. Right ventricular systolic function is mildly reduced. Atria: The left atrium is severely dilated. The right atrium is mild to moderately dilated. Mitral Valve: The mitral valve is normal in structure and function. There is no mitral valve stenosis. There is mild mitral regurgitation. Aortic Valve: The aortic valve is not well visualized. There is no aortic valve stenosis. No aortic regurgitation is present. Tricuspid Valve: The tricuspid valve is not well visualized. There is no tricuspid stenosis. There is mild tricuspid regurgitation. Pulmonary artery pressures cannot be estimated because of the lack of a measurable TR jet velocity. Pulmonic Valve: The pulmonic valve is not well visualized. There is no pulmonic valvular stenosis. There is no pulmonic valvular regurgitation. Great Vessels: The aortic root is normal size. The dimensions of the ascending aorta are normal. The inferior vena cava was not visualized. Pericardium/ Pleura There is no pericardial effusion. There is no pleural effusion. MMode/2D Measurements & Calculations LVIDd: 4.7 cm LVOT diam: 2.3 cm LVIDs: 3.6 cm Ao root diam: 3.5 cm FS: 22.9 % asc Aorta Diam: 3.3 cm IVSd: 1.5 cm LVPWd: 1.4 cm LV lopez. diameter/BSA (cm/m^2): 1.8 LV sys. diameter/BSA (cm/m^2): 1.4 LA A2 area: 38.5 cm2 RA long axis: 6.2 cm LA A4 area: 33.2 cm2 RA area: 30.5 cm2 LA length (vol): 6.8 cm RA vol: 126.7 ml LA vol: 159.0 ml RA : 48.7 ml/m2 LA vol index: 61.1 ml/m2 RVD1 (basal): 5.4 cm RVD2 (mid): 4.8 cm TAPSE: 1.5 cm Doppler Measurements & Calculations Ao V2 max: 143.2 cm/sec LVOT Max Hayes: 114.1 cm/sec Ao V2 mean: 100.9 cm/sec LV V1 max P.2 mmHg Ao max P.2 mmHg LV V1 VTI: 24.2 cm Ao mean P.5 mmHg WM(I,D): 3.5 cm2 Ao V2 VTI: 29.6 cm WM(V,D): 3.4 cm2 sev ratio: 0.82 WM indexed to BSA (cm^2/m^2): 1.4 MV E max hayes: 80.2 cm/sec TR max hayes: 281.3 cm/sec MV A max hayes: 16.6 cm/sec TR max P.7 mmHg MV E/A: 4.8 PA V2 max: 104.3 cm/sec Med Peak E' Hayes: 8.3 cm/sec PA V2 mean: 67.5 cm/sec E/E' med: 9.7 PA mean P.1 mmHg Lat Peak E' Hayes: 7.6 cm/sec PA pr(Accel): 35.0 mmHg E/E' lat: 10.6 E/e' average: 10.1 MV dec time: 0.19 sec SV(LVOT): 104.8 ml Reading Physician:12:15 PM
== END ==
PROVIDERS: PCP Family Medicine; Referring Provider Family Medicine; Visit Provider Family Medicine
DX: I08.1 Rheumatic disorders of both mitral and tricuspid valves (principal); I50.9 Heart failure, unspecified; I48.91 Unspecified atrial fibrillation; E66.01 Morbid (severe) obesity due to excess calories; F10.10 Alcohol abuse, uncomplicated
CPT/HCPCS: 93306

== ENCOUNTER → 2024-02-25 12:15 | Outpatient (CLI) | payer OTHER, SELFPAY ==
[2022-06-20 12:03] VITALS: BMI 49.8
--- NOTE | 2024-02-25 12:17 | DI.ECHO.S_ITS ---
[facility] : : [address] : : [place] : : [id number] : : Phone: [phone] Echocardiogram Report + + :Name: FARZAD MENDOZA Study Date: 02/25/2024 Height: 72 in : :[facility] ReadingLocation: Weight: 320 lb : : Gender: Male BSA: 2.6 m2 : :: 1940 Age: 83 yrs BP: 149/83 mmHg: :Reason For Study: HEART FAILURE : :Ordering Physician: JESS HATCH Performed By: Shaquille [facility] : :Referring: JESS HATCH : + + Interpretation Summary 1. This is a technically difficult study secondary to poor acoustic windows. 2. The left ventricular contractility appears to be normal. Estimated ejection fraction is greater than 55% without obvious segmental wall motion abnormalities. Mild concentric LVH noted. Unable to comment on diastolic function due to the presence of atrial fibrillation. 3. The right ventricle contractility appears to be normal. 4. Biatrial enlargement present. The right ventricle also appears to be mildly dilated. The left ventricular cavity appears to be of normal size. 5. Mild mitral regurgitation. 6. Mild tricuspid regurgitation with estimated pulmonary systolic artery pressure 48 mmHg. 7. No obvious intracardiac shunts noted. 8. No obvious intracardiac masses or thrombi appreciated. 9. No hemodynamically significant pericardial effusion present. Conclusion: Normal biventricular systolic function without significant valvular abnormalities. When compared with previous echocardiogram, there appears to be an improvement in biventricular systolic function.. Procedure: A two-dimensional transthoracic echocardiogram with color flow and Doppler was performed. The study quality was technically adequate. Comparison is made with the echocardiogram of 10/29/2023. The patient was in atrial fibrillation with heart rates between 57-93 bpm during the exam. Left Ventricle: The left ventricle is normal in size. Left ventricular wall thickness is mildly increased. The ejection fraction is estimated to be 55- 60%. Right Ventricle: The right ventricle is mildly dilated. The right ventricular systolic function is normal. Atria: The left atrium is severely dilated. The right atrium is severely dilated. The interatrial septum grossly appears intact with no obvious evidence for an atrial septal defect. Mitral Valve: The mitral valve is grossly normal. MAC. There is no mitral valve stenosis. There is mild mitral regurgitation. Aortic Valve: The aortic valve is grossly normal. The aortic valve is mildly calcified. There is no aortic valve stenosis. No aortic regurgitation is present. Tricuspid Valve: The tricuspid valve is not well visualized, but is grossly normal. There is no tricuspid stenosis. There is mild tricuspid regurgitation. The right ventricular systolic pressure is estimated to be at least 48.1 mmHg based on an estimated right atrial pressure of 8 mm Hg. Pulmonic Valve: The pulmonic valve is not well visualized. There is no pulmonic valvular stenosis. There is no pulmonic valvular regurgitation. Great Vessels: The aortic root is normal size. The dimensions of the ascending aorta are normal. The IVC is dilated (diameter is greater than 2.1 cm) yet it collapses greater than 50% with a sniff. This suggests a right atrial pressure of 8 mm Hg. Pericardium/ Pleura There is no pericardial effusion. There is no pleural effusion. MMode/2D Measurements & Calculations LVIDd: 4.8 cm LVOT diam: 2.5 cm LVIDs: 3.8 cm Ao root diam: 3.7 cm FS: 19.8 % asc Aorta Diam: 3.8 cm IVSd: 1.3 cm LVPWd: 1.2 cm LV lopez. diameter/BSA (cm/m^2): 1.8 LV sys. diameter/BSA (cm/m^2): 1.5 LA A2 area: 39.0 cm2 RA long axis: 8.2 cm LA A4 area: 43.9 cm2 RA area: 36.4 cm2 LA length (vol): 8.1 cm RA vol: 138.2 ml LA vol: 178.5 ml RA : 53.1 ml/m2 LA vol index: 68.6 ml/m2 IVC diam: 2.1 cm RVD1 (basal): 4.7 cm RVD2 (mid): 4.1 cm TAPSE: 1.5 cm Doppler Measurements & Calculations Ao V2 max: 125.9 cm/sec LVOT Max Hayes: 89.4 cm/sec Ao V2 mean: 101.7 cm/sec LV V1 max P.2 mmHg Ao max P.3 mmHg LV V1 VTI: 19.6 cm Ao mean P.4 mmHg WM(I,D): 3.3 cm2 Ao V2 VTI: 28.9 cm WM(V,D): 3.4 cm2 sev ratio: 0.68 WM indexed to BSA (cm^2/m^2): 1.3 MV E max hayes: 105.8 cm/sec TR max hayes: 316.2 cm/sec MV A max hayes: 19.8 cm/sec TR max P.1 mmHg MV E/A: 5.3 PA V2 max: 110.4 cm/sec Med Peak E' Hayes: 7.7 cm/sec PA V2 mean: 76.4 cm/sec E/E' med: 13.7 PA mean P.6 mmHg Lat Peak E' Hayes: 7.8 cm/sec PA pr(Accel): 34.5 mmHg E/E' lat: 13.6 E/e' average: 13.7 MV dec time: 0.14 sec SV(LVOT): 94.3 ml Reading Physician:
--- NOTE | 2024-02-25 12:17 | DI.NM.S_ITS ---
PROCEDURE: NM DIPAK PERF SPECT R&S PHARM Rest and pharmacological stress myocardial perfusion SPECT with gated imaging and ejection fraction RADIOPHARMACEUTICAL: 27.3 mCi Tc-99m tetrafosmin IV at rest and 23.5 mCi Tc-99m tetrafosmin IV at peak effect of pharmacological stress. [id number] was performed. INDICATIONS: Heart failure, unspecified TECHNIQUE: Radiopharmaceutical was injected at peak stress test, and also at rest. SPECT images were obtained. SPECT myocardial perfusion images were displayed in short axis, horizontal long axis, and vertical long axis views. Gated images were reviewed using SHEEX software. COMPARISON: None. CARDIAC STRESS: A pharmacologic stress test was performed under the supervision of an attending staff, using an infusion of lexiscan 0.4mg IV X1. Hemodynamic data: There is normal blood pressure and heart rate response to pharmacologic stress. Symptoms: The patient denied anginal chest pain. Aminophylline: none EKG: No diagnostic changes of ischemia; occasional PVCs noted. FINDINGS: Raw data: There is good myocardial uptake of radiotracer. No significant motion artifacts. Left ventricle function: Gated images demonstrate normal left ventricular wall thickening. No segmental wall motion abnormalities. No transient ischemic dilation visually. Left ventricle resting end diastolic volume is 156mL. Left ventricle stress ejection fraction is 60%; normal range is above 45%. Myocardial perfusion: There is a moderately intense partially reversible defect in the inferior wall consistent with prior non-transmural infarction and modest latricia-infarct ischemia. Artifacts can't be excluded as the cause of perfusion abnormality as prone imaging not available. SSS 6, SRS 2. IMPRESSION: Abnormal pharm nuclear stress test. 1) There is a moderately intense partially reversible defect in the inferior wall consistent with prior non-transmural infarction and modest latricia-infarct ischemia. Artifacts can't be excluded as the cause of perfusion abnormality as prone imaging not available. SSS 6, SRS 2. 2) Enlarged left ventricle (resting EDV 156cc) with normal wall motion, and normal systolic function (EF post stress 60%). 3) No diagnostic ST changes during the study. 4) No angina during the study. 5) No prior nuclear stress test available for comparison. Dictated by: Robby Gonzalez MD on 02/26/2024 at 16:33 Approved by: Robby Gonzalez MD on 02/26/2024 at 16:37
== END ==
PROVIDERS: PCP Family Medicine; Referring Provider Internal Medicine; Visit Provider Internal Medicine
DX: I50.9 Heart failure, unspecified (principal); I08.1 Rheumatic disorders of both mitral and tricuspid valves; R94.39 Abnormal result of other cardiovascular function study
CPT/HCPCS: 78452; 93017; 93306; A9502; J2785

== ENCOUNTER → 2024-03-24 15:40 | Outpatient (CLI) | payer OTHER, SELFPAY ==
[2022-06-20 12:03] VITALS: BMI 49.8
[2024-03-24 16:52] LABS: BUN Creatinine Ratio 15.4 (6-22); Blood Urea Nitrogen 20 mg/dL (9-20); Calcium 8.6 mg/dL (8.4-10.2); Carbon Dioxide 30 mmol/L (22-32); Chloride 103 mmol/L (98-107); Estimated Glomerular Filt Rate 55 mL/min (>60); Glucose 97 mg/dL (80-110); HEMOLYSIS < 15 (0-50); Potassium 4.2 mmol/L (3.4-5.1); Sodium 138 mmol/L (137-145)
== END ==
PROVIDERS: PCP Family Medicine; Referring Provider Internal Medicine; Visit Provider Internal Medicine
DX: I50.32 Chronic diastolic (congestive) heart failure (principal)
CPT/HCPCS: 36415; 80048

== ENCOUNTER → 2024-06-23 15:14 | Outpatient (CLI) | payer OTHER, SELFPAY ==
[2022-06-20 12:03] VITALS: BMI 49.8
[2024-06-23 15:49] LABS: Blood Urea Nitrogen 29 mg/dL (9-20); Calcium 9.4 mg/dL (8.4-10.2); Carbon Dioxide 30 mmol/L (22-32); Chloride 100 mmol/L (98-107); Estimated Glomerular Filt Rate 57 mL/min (>60); Glucose 96 mg/dL (80-110); HEMOLYSIS < 15 (0-50); Potassium 4.7 mmol/L (3.4-5.1); Sodium 136 mmol/L (137-145)
== END ==
LOC: LAB 15:15
PROVIDERS: PCP Family Medicine; Referring Provider Internal Medicine; Visit Provider Internal Medicine
DX: I50.32 Chronic diastolic (congestive) heart failure (principal)
CPT/HCPCS: 36415; 80048